=== PATIENT | female | born 1995 | race African-American/Black ===

== ENCOUNTER 2017-07-28 17:30 | Emergency (ER) | payer OTHER ==
[2017-07-28 18:14] LABS: #Lymphocytes 0.7 thou/uL (1.20-3.40); #Monocytes 1.1 thou/uL (0.11-0.59); #Neutrophils 6.7 thou/uL (1.40-6.50); %Basophils 0.4 % (0.0-1.0); %Eosinophils 0.4 % (0.0-10.0); %Lymphocytes 7.9 % (21.0-51.0); %Monocytes 12.4 % (0.0-10.0); Hematocrit 33.4 % (36.0-47.0); Mean Platelet Volume 11.3 fL (7.4-10.4); Red Blood Cell (RBC) Count 4.44 mill/uL (4.20-5.40); White Blood Cell (WBC) Count 8.4 thou/uL (4.8-10.8)
--- NOTE | 2017-07-28 18:17 | RAD ---
PORTABLE CHEST: Date: 07/28/17 PROVIDED CLINICAL HISTORY: Dyspnea. FINDINGS: Comparison with 12/16/13. Cardiomediastinal silhouette is unchanged in appearance. Left subclavian cardiac pacing device is red emonstrated in similar position. No focal consolidation, pleural fluid, or pneumothorax apparent. IMPRESSION: No evidence for an acute cardiopulmonary process. POS: [facility]
[2017-07-28 18:40] LABS: Troponin I Less than 0.010 ng/mL (< 0.028)
[2017-07-28 18:41] LABS: ALT (SGPT) 21 U/L (8-55); AST (SGOT) 30 U/L (5-34); Alkaline Phosphatase 57 U/L (40-150); Anion Gap 18 mmol/L (10-20); BUN (Urea Nitrogen) 7 mg/dL (7.0-18.7); Bilirubin, Total 0.7 mg/dL (0.2-1.2); CK (CPK) 75 U/L (29-168); Calc. Creatinine Clearance 0 mL/min (70-130); Calcium 9.2 mg/dL (7.8-10.44); Carbon Dioxide 18 mmol/L (22-29); Chloride 105 mmol/L (98-107); Estimated GFR-MDRD Greater than 90; Globulin 3.8 g/dL (2.4-3.5); Protein, Total 8.4 g/dL (6.0-8.3)
[2017-07-28] MEDS ORDERED: Acetaminophen 500 MG TAB ONE (18:43)
== END 2017-07-28 20:25 | disposition home or self-care (01) ==
LOC: ERS 17:30
DX: J11.1 Influenza due to unidentified influenza virus with other respiratory manifestations (principal); I48.91 Unspecified atrial fibrillation; I50.9 Heart failure, unspecified; I49.9 Cardiac arrhythmia, unspecified; F17.210 Nicotine dependence, cigarettes, uncomplicated
CPT/HCPCS: 71010; 80053; 82550; 82553; 83880; 84484; 85025; 93005; 96360

== ENCOUNTER 2018-02-04 10:55 | Emergency (ER) | payer OTHER ==
[2018-02-04 11:24] LABS: Bilirubin Small (Negative); Blood, Urine Trace (Negative); Glucose, Urine (Dipstick) Negative (Negative); Leukocyte Negative (Negative); Nitrite Negative (Negative); Protein, Urine (Dipstick) Trace mg/dL (Neg-Trace); Urobilinogen 0.2 mg/dL (0.2-1.0)
[2018-02-04 11:27] LABS: Clarity Hazy (Clear); Specific Gravity, Urine 1.025 (1.002-1.036)
[2018-02-04 11:29] LABS: #Eosinphils 0.1 thou/uL (0.0-0.7); #Lymphocytes 1.5 thou/uL (1.20-3.40); #Monocytes 0.6 thou/uL (0.11-0.59); #Neutrophils 3.8 thou/uL (1.40-6.50); %Basophils 0.7 % (0.0-1.0); %Eosinophils 1.2 % (0.0-10.0); %Lymphocytes 24.4 % (21.0-51.0); %Monocytes 10.3 % (0.0-10.0); %Neutrophils 63.4 % (42.0-75.0); Hemoglobin 9.5 g/dL (12.0-16.0); Mean Corpuscular HGB CONC 29.7 g/dL (32.0-36.0); Mean Corpuscular Hemoglobin 22.4 pg (27.0-31.0); Mean Corpuscular Volume 75.5 fL (78.0-98.0); Mean Platelet Volume 10.6 fL (7.4-10.4); Platelet Count 209 thou/uL (130-400); RBC Distribution Width 17.2 % (11.5-14.5); Red Blood Cell (RBC) Count 4.23 mill/uL (4.20-5.40)
[2018-02-04 11:32] LABS: Bacteria/HPF 3+ HPF (None Seen); RBC/HPF None Seen HPF (0-3); Squamous Epithelial 21-50 HPF (0-3)
[2018-02-04 11:34] LABS: Pathc Cast-AUWi Flag 4.65 (0-2.49)
[2018-02-04 11:39] LABS: BHCG - Serum Negative (NEGATIVE); Pregs Control Background? CLEAR/WHITE (CLR/WHITE); Pregs Control Bar Appear? YES (CONTROL BAR)
[2018-02-04 11:39] LABS: Hyaline Casts/LPF 4-6 HYALINE CAST LPF (0-3 Hyaline)
[2018-02-04 11:40] LABS: Crystals/HPF None Seen HPF (Negative); Other Casts/LPF None Seen LPF (0-3 Hyaline); Renal Epithelial 0-3 HPF (0-3); Transitional Epithelial 0-3 HPF (0-3)
[2018-02-04 11:52] LABS: ALT (SGPT) 15 U/L (8-55); AST (SGOT) 19 U/L (5-34); Albumin 4.2 g/dL (3.5-5.0); Alkaline Phosphatase 53 U/L (40-150); Anion Gap 10 mmol/L (10-20); BUN (Urea Nitrogen) 10 mg/dL (7.0-18.7); Bilirubin, Total 0.8 mg/dL (0.2-1.2); Calc. Creatinine Clearance 0 mL/min (70-130); Carbon Dioxide 21 mmol/L (22-29); Chloride 109 mmol/L (98-107); Estimated GFR-MDRD Greater than 90; Glucose 90 mg/dL (70-105); Potassium 3.4 mmol/L (3.5-5.1); Protein, Total 7.2 g/dL (6.0-8.3); Sodium 137 mmol/L (136-145)
[2018-02-04 12:16] LABS: Hypochromia SLIGHT = 6-15 cells (100X) (0-5/hpf); MDiff Complete? YES; Microcytosis SLIGHT = 6-15 cells (100X) (0-5/hpf); Polychromasia SLIGHT = 2-3 cells (100X) (0-2/hpf)
[2018-02-04] MEDS ORDERED: cefTRIAXone\\ROCEPHIN 250 MG VIAL ONE (12:49)
[2018-02-04] MEDS ORDERED: Lidocaine 1% PF 5 ML VIAL ONE (12:49)
[2018-02-04] MEDS ORDERED: Azithromycin 250 MG TAB ONE (12:49)
[2018-02-06 22:14] LABS: Chlamydia by PCR Not Detected (NotDetected); GC by PCR Not Detected (NotDetected)
== END 2018-02-04 13:19 | disposition home or self-care (01) ==
LOC: ERS 10:55
DX: N89.8 Other specified noninflammatory disorders of vagina (principal); R30.0 Dysuria; I48.91 Unspecified atrial fibrillation; I50.9 Heart failure, unspecified; F17.210 Nicotine dependence, cigarettes, uncomplicated
CPT/HCPCS: 36415; 80053; 81003; 81015; 84703; 85025; 87077; 87086; 87186; 87480; 87491; 87510; 87591; 87660; 96372; J0696; J2001

== ENCOUNTER 2018-05-09 19:04 | Emergency (ER) | payer OTHER ==
[2018-05-09 19:52] LABS: Bilirubin Negative (Negative); Blood, Urine Negative (Negative); Clarity CLOUDY (Clear); Glucose, Urine (Dipstick) Negative (Negative); Leukocyte Moderate (Negative); Nitrite Negative (Negative); Protein, Urine (Dipstick) Negative (Neg-Trace); Specific Gravity, Urine 1.028 (1.002-1.036)
[2018-05-09 19:55] LABS: Bacteria/HPF None Seen HPF (None Seen); Pathc Cast-AUWi Flag 1.16 (0-2.49); Pregnancy Test - Urine (BHCG) Negative (Negative); Pregu Control Background? CLEAR/WHITE (CLR/WHITE); Pregu Control Bar Appear? YES (CONTROL BAR); Specific Gravity 1.028 (1.002-1.036); Squamous Epithelial 0-3 HPF (0-3)
[2018-05-09 19:59] LABS: Hyaline Casts/LPF 0-3 HYALINE CAST LPF (0-3 Hyaline); RBC/HPF None Seen HPF (0-3)
[2018-05-11 22:10] LABS: Chlamydia by PCR Not Detected (NotDetected); GC by PCR Not Detected (NotDetected)
== END 2018-05-09 22:00 | disposition home or self-care (01) ==
LOC: ERS 19:04
DX: N39.0 Urinary tract infection, site not specified (principal); I48.91 Unspecified atrial fibrillation; I50.9 Heart failure, unspecified; Z87.891 Personal history of nicotine dependence
CPT/HCPCS: 81003; 81015; 81025; 87480; 87491; 87510; 87591; 87660; 99284

== ENCOUNTER 2018-06-22 10:37 | Emergency (ER) | payer OTHER ==
[2018-06-22 12:39] LABS: #Basophils 0.1 thou/uL (0.0-0.2); #Eosinphils 0.1 thou/uL (0.0-0.7); #Lymphocytes 1.9 thou/uL (1.20-3.40); #Monocytes 0.7 thou/uL (0.11-0.59); #Neutrophils 5.6 thou/uL (1.40-6.50); %Basophils 0.6 % (0.0-1.0); %Neutrophils 67.4 % (42.0-75.0); Hemoglobin 9.9 g/dL (12.0-16.0); Mean Corpuscular HGB CONC 29.2 g/dL (32.0-36.0); Mean Corpuscular Hemoglobin 22.9 pg (27.0-31.0); Mean Corpuscular Volume 78.4 fL (78.0-98.0); Mean Platelet Volume 10.9 fL (7.4-10.4); Platelet Count 222 thou/uL (130-400); RBC Distribution Width 17.4 % (11.5-14.5); Red Blood Cell (RBC) Count 4.34 mill/uL (4.20-5.40); White Blood Cell (WBC) Count 8.3 thou/uL (4.8-10.8)
[2018-06-22 12:43] LABS: Bilirubin Negative (Negative); Blood, Urine Negative (Negative); Clarity CLOUDY (Clear); Glucose, Urine (Dipstick) Negative (Negative); Leukocyte Moderate (Negative); Nitrite Negative (Negative); Protein, Urine (Dipstick) Trace mg/dL (Neg-Trace); Specific Gravity, Urine 1.027 (1.002-1.036)
[2018-06-22 12:57] LABS: Hypochromia SLIGHT = 6-15 cells (100X) (0-5/hpf); MDiff Complete? YES; Microcytosis SLIGHT = 6-15 cells (100X) (0-5/hpf); PLT Morphology Comment Appears Adequate; Polychromasia SLIGHT = 2-3 cells (100X) (0-2/hpf)
[2018-06-22 13:07] LABS: Bacteria/HPF 2+ HPF (None Seen)
[2018-06-22 13:11] LABS: ALT (SGPT) 14 U/L (8-55); AST (SGOT) 18 U/L (5-34); Albumin 3.7 g/dL (3.5-5.0); Alkaline Phosphatase 54 U/L (40-150); Anion Gap 11 mmol/L (10-20); BUN (Urea Nitrogen) 13 mg/dL (7.0-18.7); Bilirubin, Total 0.7 mg/dL (0.2-1.2); Calc. Creatinine Clearance 0 mL/min (70-130); Calcium 8.9 mg/dL (7.8-10.44); Carbon Dioxide 24 mmol/L (22-29); Chloride 109 mmol/L (98-107); Estimated GFR-MDRD Greater than 90; Globulin 3.4 g/dL (2.4-3.5); Glucose 90 mg/dL (70-105); Potassium 4.2 mmol/L (3.5-5.1); Protein, Total 7.1 g/dL (6.0-8.3); Sodium 140 mmol/L (136-145)
[2018-06-22] MEDS ORDERED: Azithromycin 250 MG TAB ONE (13:54)
[2018-06-22] MEDS ORDERED: Lidocaine 1% (PF) 30 ML VIAL ONE (13:54)
[2018-06-22] MEDS ORDERED: cefTRIAXone\\ROCEPHIN 250 MG VIAL ONE (13:54)
[2018-06-24 00:39] LABS: Chlamydia by PCR Not Detected (NotDetected); GC by PCR Not Detected (NotDetected)
== END 2018-06-22 14:00 | disposition home or self-care (01) ==
LOC: ERS 10:37
DX: N89.8 Other specified noninflammatory disorders of vagina (principal); N39.0 Urinary tract infection, site not specified; I48.91 Unspecified atrial fibrillation; I50.9 Heart failure, unspecified; Z87.891 Personal history of nicotine dependence
CPT/HCPCS: 36415; 80053; 81003; 81015; 85025; 87086; 87480; 87491; 87510; 87591; 87660; 96372; J0696; J2001

== ENCOUNTER 2018-09-29 14:55 | Emergency (ER) | payer OTHER ==
[2018-09-29] MEDS ORDERED: Ibuprofen 200 MG TAB ONE (15:26)
== END 2018-09-29 15:33 | disposition home or self-care (01) ==
LOC: ERS 14:55
DX: H66.92 Otitis media, unspecified, left ear (principal); I48.91 Unspecified atrial fibrillation; I50.9 Heart failure, unspecified; Z87.891 Personal history of nicotine dependence
CPT/HCPCS: 99282

== ENCOUNTER 2018-10-27 11:40 | Inpatient (IN) | payer OTHER ==
--- NOTE | 2018-10-27 12:17 | RAD ---
PORTABLE CHEST ONE VIEW: Date: 10-27-18 Time: 12:05 p.m. History: Chest pain, nausea. Comparison: 07-28-17 FINDINGS/IMPRESSION: Left sided AICD remains in place. The heart size is borderline. The lungs are well expanded with mild prominence of the pulmonary vascularity. No lobar consolidation, pneumothoraces or large effusions a re seen. POS: [facility]
[2018-10-27 12:35] LABS: ALT (SGPT) 35 U/L (8-55); AST (SGOT) 29 U/L (5-34); Albumin 3.8 g/dL (3.5-5.0); Alkaline Phosphatase 59 U/L (40-150); Anion Gap 11 mmol/L (10-20); BUN (Urea Nitrogen) 11 mg/dL (7.0-18.7); Bilirubin, Total 0.7 mg/dL (0.2-1.2); CK (CPK) 93 U/L (29-168); Calc. Creatinine Clearance 0 mL/min (70-130); Calcium 8.4 mg/dL (7.8-10.44); Carbon Dioxide 20 mmol/L (22-29); Chloride 111 mmol/L (98-107); Estimated GFR-MDRD Greater than 90; Globulin 2.6 g/dL (2.4-3.5); Glucose 105 mg/dL (70-105); Lipase 11 U/L (8-78); Potassium 3.7 mmol/L (3.5-5.1); Protein, Total 6.4 g/dL (6.0-8.3); Sodium 138 mmol/L (136-145)
[2018-10-27 12:36] LABS: #Basophils 0.1 thou/uL (0.0-0.2); #Eosinphils 0.1 thou/uL (0.0-0.7); #Monocytes 0.6 thou/uL (0.11-0.59); #Neutrophils 8.4 thou/uL (1.40-6.50); %Basophils 0.7 % (0.0-1.0); %Lymphocytes 17.5 % (21.0-51.0); %Monocytes 5.6 % (0.0-10.0); %Neutrophils 75.3 % (42.0-75.0); Hemoglobin 9.9 g/dL (12.0-16.0); Mean Corpuscular HGB CONC 28.5 g/dL (32.0-36.0); Mean Corpuscular Hemoglobin 21.8 pg (27.0-31.0); Mean Corpuscular Volume 76.7 fL (78.0-98.0); Mean Platelet Volume 10.8 fL (7.4-10.4); Platelet Count 247 thou/uL (130-400); RBC Distribution Width 17.3 % (11.5-14.5); Red Blood Cell (RBC) Count 4.56 mill/uL (4.20-5.40); White Blood Cell (WBC) Count 11.1 thou/uL (4.8-10.8)
[2018-10-27 13:00] LABS: Hypochromia SLIGHT = 6-15 cells (100X) (0-5/hpf); MDiff Complete? YES; Microcytosis SLIGHT = 6-15 cells (100X) (0-5/hpf); Platelet Morphology Comment Appears Adequate; Polychromasia SLIGHT = 2-3 cells (100X) (0-2/hpf)
[2018-10-27] MEDS ORDERED: Furosemide 40 MG/4 ML VIAL ONE (14:36)
[2018-10-27 16:34] LABS: Troponin I 0.597 ng/mL (< 0.028)
[2018-10-27 17:23] VITALS: BMI 21.2
[2018-10-27 19:15] LABS: Troponin I 2.233 ng/mL (< 0.028)
[2018-10-27] MEDS: Melatonin 3 MG TAB PO PRN (20:55)
[2018-10-27] MEDS ORDERED: Ondansetron PF 4 MG/2 ML Vial IVP PRN (22:36)
[2018-10-27] MEDS ORDERED: Acetaminophen 325 MG TAB PO PRN (22:36)
[2018-10-27] MEDS ORDERED: Ondansetron ODT 4 MG TAB PO PRN (22:36)
[2018-10-27] MEDS ORDERED: Nitroglycerin 0.4 MG TAB (25 Tab Bottle) PO PRN (23:46)
[2018-10-27] MEDS ORDERED: Enoxaparin Sodium 60 MG/0.6 ML SYRINGE SC SCH (23:59)
--- NOTE | 2018-10-28 02:50 | HP ---
PRIMARY CARE PHYSICIAN: None. CHIEF COMPLAINT: Chest pain. HISTORY OF PRESENT ILLNESS: Ms. Tapia is a pleasant 23-year-old female with past medical history of atrial fibrillation, treated with AICD in place, congestive heart failure, who had presented to [facility] with chest pain ongoing for the last week. She states that she has also noticed some increasing shortness of breath during this time as well. She states that this symptom was significantly worsened earlier this morning when she was getting up to use the restroom. She also noticed some nausea without vomiting. She had denied any fever, chills, any headache, dizziness, blurred vision, denies any abdominal pain. Her last documented echocardiogram displayed an ejection fraction of 20% to 25%. She states she used to see Dr. Dennis, cna caregiver, in the past. However, she has not seen him in over a year. She also reports that she is noncompliant with her home medications. She states that she is supposed to be taking medications such as carvedilol, lisinopril, Lasix that she has not been taking as she is supposed to. She is also follow up for her recheck of her AICD. She had denied any palpitations during this time as well. During her initial workup, it was found troponin be negative 0.021; however, serial troponins trended up to 0.597 and 2.233. BNP also elevated at 765.9. Chest x-ray displayed left-sided AICD in place with lungs well expanded, however did display mild pulmonary congestion. She was given a single dose of IV Lasix 40 mg, which had resolved her symptoms of chest pain and shortness of breath. She was admitted for further workup and Cardiology Services were then consulted. REVIEW OF SYSTEMS: All other systems reviewed and found to be negative unless mentioned in the HPI. PAST MEDICAL HISTORY: Atrial fibrillation, currently in sinus rhythm on the monitor, congestive heart failure, nonischemic cardiomyopathy with an ejection fraction of 20% to 25%. PAST SURGICAL HISTORY: Tonsillectomy, adenoidectomy, tubal ligation, defibrillator. PSYCHIATRIC HISTORY: None. SOCIAL HISTORY: Currently smokes about 3 to 5 cigarettes per day. However, denies any alcohol or illicit drug use. KNOWN ALLERGIES: None. CURRENT MEDICATIONS: None. PHYSICAL EXAMINATION: VITAL SIGNS: BP 110/67, pulse 102, respirations 17, temperature 97.3 degrees Fahrenheit, O2 saturation 99% on room air. GENERAL: The patient is awake, alert, and oriented x3, in no acute distress noted. HEENT: Pupils are round and reactive to light. Extraocular muscles intact. Moist mucous membranes noted. Oropharynx is clear without exudates or erythema. Uvula is midline. NECK: Soft and supple. No JVD. Trachea midline. CARDIOVASCULAR: Positive S1 and S2. Regular rate and rhythm. No murmurs auscultated. RESPIRATORY: Clear to auscultation bilaterally. No wheezes, rales, or rhonchi. ABDOMEN: Soft and nontender. Bowel sounds present. No rebound, no rigidity noted. MUSCULOSKELETAL: Strength 5+ bilaterally in upper and lower extremities. Moves all extremities equal. No edema noted. SKIN: Warm, dry, and intact. No lesions, rashes, or ulcerations. NEUROLOGIC: Cranial nerves II through XII grossly intact. No focal deficits noted. Speech intact and normal. Gait not assessed. PSYCHIATRIC: Good mood and affect. LABORATORY DATA: WBC 11.1, RBC 4.56, hemoglobin 9.9, hematocrit 34.9, platelets 247. Sodium 138, potassium 3.7, anion gap 11, BUN 11, creatinine 0.88, estimated GFR greater than 90, glucose 105, AST 29, ALT 35. Troponin 0.021, trended up to 0.597 and then 2.233. BNP 765.9. DIAGNOSTIC IMAGING: Portable chest x-ray revealed mild pulmonary congestion with AICD in place. No large effusions noted. ASSESSMENT AND PLAN: 1. Non ST-elevation myocardial infarction, Cardiology consulted. The patient will be placed on full dose of aspirin and Lovenox 1 mg/kg b.i.d. The patient will also be started on full-dose statin therapy and await further recommendations from Cardiology. 2. Chest pain, likely secondary to above. The patient remains asymptomatic at this time. Continue with medical management including IV Lasix daily and continue on telemetry for further monitoring. Obtain and recheck EKG. 3. Nonischemic cardiomyopathy. Recheck echocardiogram in the morning and await further recommendations from Cardiology Services. Due to patient's risk of hypotension, we will hold any beta blockers or MANSOOR inhibitors at this time, and await further recommendations from Cardiology Services. 4. Deep venous thrombosis and gastrointestinal prophylaxis. 5. Code status, full code. DISPOSITION: Pending further workup and clinical findings. Job ID: [id number]
[2018-10-28 06:54] LABS: #Basophils 0.1 thou/uL (0.0-0.2); #Eosinphils 0.2 thou/uL (0.0-0.7); #Lymphocytes 2.5 thou/uL (1.20-3.40); #Monocytes 1.2 thou/uL (0.11-0.59); %Basophils 0.5 % (0.0-1.0); %Eosinophils 1.5 % (0.0-10.0); %Lymphocytes 21.1 % (21.0-51.0); %Monocytes 9.7 % (0.0-10.0); %Neutrophils 67.2 % (42.0-75.0); Anisocytosis SLIGHT = 6-15 cells (100X) (0-5/hpf); Hypochromia SLIGHT = 6-15 cells (100X) (0-5/hpf); MDiff Complete? YES; Mean Corpuscular HGB CONC 29.2 g/dL (32.0-36.0); Mean Corpuscular Hemoglobin 22.3 pg (27.0-31.0); Mean Corpuscular Volume 76.4 fL (78.0-98.0); Mean Platelet Volume 10.9 fL (7.4-10.4); Platelet Count 247 thou/uL (130-400); RBC Distribution Width 17.6 % (11.5-14.5); Red Blood Cell (RBC) Count 4.47 mill/uL (4.20-5.40); White Blood Cell (WBC) Count 11.9 thou/uL (4.8-10.8)
[2018-10-28 07:19] LABS: Anion Gap 14 mmol/L (10-20); BUN (Urea Nitrogen) 10 mg/dL (7.0-18.7); Calc. Creatinine Clearance 87 mL/min (70-130); Carbon Dioxide 22 mmol/L (22-29); Cardiac Risk 3.8 (Less than 4.5); Chloride 105 mmol/L (98-107); Cholesterol 150 mg/dl (< 200 Desired); Estimated GFR-MDRD Greater than 90; Glucose 100 mg/dL (70-105); HDL Cholesterol 40 mg/dL (>60 Neg Risk); LDL Cholesterol, Calculated 96 mg/dL; Potassium 3.4 mmol/L (3.5-5.1); Sodium 138 mmol/L (136-145); Triglycerides 72 mg/dL (Less than 150)
[2018-10-28] MEDS: Furosemide 40 MG/4 ML VIAL SLOW IVP SCH (08:19)
[2018-10-28] MEDS ORDERED: Enoxaparin Sodium 40 MG/0.4 ML SYRINGE SC SCH (09:00)
[2018-10-28] MEDS ORDERED: Aspirin 325 mg Enteric Coated Tablet PO SCH (09:00)
[2018-10-28] MEDS ORDERED: Enoxaparin Sodium 60 MG/0.6 ML SYRINGE SC SCH (09:00)
[2018-10-28] MEDS ORDERED: Potassium Chloride 20 MEQ TAB PO SCH (10:15)
[2018-10-28] MEDS: Sacubitril 24.5 MG/Valsartan 25.5 MG TABLET PO SCH ×2 (11:00→20:27)
--- NOTE | 2018-10-28 11:38 | CON ---
DATE OF CONSULTATION: 10/28/2018 REASON FOR CONSULTATION: Congestive heart failure, cardiomyopathy. HISTORY OF PRESENT ILLNESS: Ms. Tapia is a 23-year-old woman. She came to the hospital yesterday, because she had difficulty breathing. She did not have chest pain, but she felt a full sensation in her chest. The patient was found to be in congestive heart failure on chest x-ray and was admitted for further evaluation. The patient does have a history of cardiomyopathy approximately 5 years ago. Her ejection fraction was severely depressed. Ejection fraction is 20-25 percent. The patient also had a defibrillator implantation. The patient did have a lot of noncompliance at that time with taking the medicines as prescribed and keeping followups, despite being stressed about the critical importance of these things. Unfortunately, she has not come back for followup now for about 5 years until yesterday. Unfortunately, she has not been taking any of the medicines that were prescribed. PAST HISTORY: 1. As mentioned, cardiomyopathy. 2. Previous defibrillator implantation. 3. She did have a left ventricular thrombus years ago, treated with enoxaparin. MEDICATIONS: As mentioned, she stopped taking all of her medicines. SOCIAL HISTORY: Continues to smoke 3-5 cigarettes per day. ALLERGIES: NO KNOWN ALLERGIES. PHYSICAL EXAMINATION: GENERAL: This is a pleasant, thin, 23-year-old woman. VITAL SIGNS: Her blood pressure is 103/56, followed by 106/71, pulse 90, it is regular, pulse is fast for her to rest. HEENT: Eyes; sclerae nonicteric. Mouth; mucous membranes moist. NECK: Supple. No lymphadenopathy. LUNGS: Clear. No wheezing, rales, or rhonchi. CARDIAC: She is tachycardic for rest. I do not hear a murmur, rub, or gallop. ABDOMEN: Soft, nontender. EXTREMITIES: No clubbing or cyanosis. There is no edema. Pedal pulses are present. SKIN: Warm and dry. PSYCHIATRIC: Mood and affect normal. NEUROLOGIC: Grossly normal. IMAGIN. Chest x-ray shows cardiomegaly with some pulmonary congestion. 2. Chest x-ray, borderline left ventricular enlargement and prominent pulmonary vasculature. PERTINENT LABORATORY: Her peak troponin was 2.2. BNP 765. Potassium level is 3.4. On reviewing previous medical records, she did have defibrillator implantation in the past that was done in November 2012. In addition, the ejection fraction was severely diminished in the past at 20-25 percent. EKG in the present time shows sinus rhythm. In addition, the patient also has had nonsustained ventricular tachycardia during this admission of 21 beats. The 12-lead EKG showed sinus rhythm. The quality of the EKG is not ideal, but the QT interval is borderline. The echocardiogram now shows an ejection fraction of 15-20 percent, severe mitral regurgitation, very prominent trabecula in the left ventricle. ASSESSMENT: 1. Severe cardiomyopathy with ejection fraction of 15% to 20%. 2. Previous defibrillator implantation. 3. Previous left ventricular thrombus, now very prominent trabecula. 4. Increased troponin, probably demand ischemia be very unlikely. She has coronary disease. Unfortunately the patient stopped taking all of the heart failure medicines; therefore, the prognosis is likely guarded to poor. We will start her on low-dose carvedilol in view of low blood pressure. 5. Replete potassium. 6. Entresto. 7. We will also ask Dr. South to review the echocardiogram in the past as we thought she had left ventricular thrombus. This appears to be more likely trabecula, but I will ask him to look as well. The patient will need to be in the hospital a few days to try to get her heart failure compensated. In the past, we stressed on multiple occasions, the critical importance of taking medicines and the very grim prognosis, if she does not. She will have this reinforced to her once again. Job ID: [id number]
[2018-10-28] MEDS: Carvedilol 3.125 MG TAB PO SCH (16:22)
--- NOTE | 2018-10-28 16:41 | PDOC.PN ---
- Subjective Encounter Start Date: 10/28/18 Encounter Start Time: 16:39 Subjective: Patient resting comfortably and is without any complaints. -: States her chest tightness has fully resolved. Has experienced -: occasional bilateral lower leg cramps. Edema has improved. Denies any sob. No cough or hemoptysis. Denies any fevers, chills or sweats. No abdo pain. No urinary symptoms. Feeling significantly better overall. - Objective Resuscitation Status - Order Detail: 10/27/18 22:36 Resuscitation Status Routine Co-Sign Provider: Resuscitation Status: FULL: Full Resuscitation Vital Signs & Weight: Vital Signs (12 hours) Temp Pulse Resp BP Pulse Ox 10/28/18 16:00 97.3 F L 97 15 107/66 98 10/28/18 11:40 98.5 F 97 18 111/63 98 10/28/18 08:00 97.8 F 94 16 106/71 100 Weight Weight 126 lb 1.6 oz I&O: 10/27/18 10/28/18 10/29/18 06:59 06:59 06:59 Intake Total 600 Output Total 450 Balance 150 Result Diagrams: 10/28/18 05:57 10/28/18 05:57 Phys Exam - Physical Examination Constitutional: NAD HEENT: PERRLA, sclera anicteric, oral pharynx no lesions Neck: supple, full ROM Respiratory: no wheezing, no rales, no rhonchi, clear to auscultation bilateral Cardiovascular: RRR Gastrointestinal: soft, non-tender, no distention, positive bowel sounds trace bilateral lower leg edema Neurological: normal sensation, moves all 4 limbs Psychiatric: normal affect, A&O x 3 Skin: no rash, normal turgor Dx/Plan (1) Cardiomyopathy Code(s): I42.9 - CARDIOMYOPATHY, UNSPECIFIED Status: Acute (2) Ischemic heart disease Code(s): I25.9 - CHRONIC ISCHEMIC HEART DISEASE, UNSPECIFIED Status: Acute (3) Chest pain Code(s): R07.9 - CHEST PAIN, UNSPECIFIED Status: Resolved (4) History of automatic internal cardiac defibrillator (AICD) Code(s): KYW4342 - Status: Acute - Plan cont current plan of care S/p Echo: 15 to 20% EF. Worsened cardiomyopathy due to noncompliance -: Seen by Dr. Dennis. Started on Carvedilol and Entresto. -: Monitor electrolytes. Continue as per Cardiology recommendations. * .
[2018-10-28] MEDS: Atorvastatin Calcium 40 MG TAB PO SCH (20:27)
[2018-10-28] MEDS ORDERED: Atorvastatin Calcium 40 MG TAB PO SCH (21:00)
[2018-10-28] MEDS: Melatonin 3 MG TAB PO PRN (22:43)
[2018-10-29 05:47] LABS: #Basophils 0.1 thou/uL (0.0-0.2); #Eosinphils 0.1 thou/uL (0.0-0.7); #Lymphocytes 2.2 thou/uL (1.20-3.40); #Monocytes 1.1 thou/uL (0.11-0.59); #Neutrophils 4.6 thou/uL (1.40-6.50); %Basophils 1.1 % (0.0-1.0); %Eosinophils 1.5 % (0.0-10.0); %Lymphocytes 26.8 % (21.0-51.0); %Monocytes 13.3 % (0.0-10.0); %Neutrophils 57.4 % (42.0-75.0); Hemoglobin 10.9 g/dL (12.0-16.0); Mean Corpuscular HGB CONC 28.6 g/dL (32.0-36.0); Mean Corpuscular Hemoglobin 22.2 pg (27.0-31.0); Mean Corpuscular Volume 77.4 fL (78.0-98.0); Mean Platelet Volume 10.7 fL (7.4-10.4); Platelet Count 297 thou/uL (130-400); RBC Distribution Width 17.9 % (11.5-14.5); Red Blood Cell (RBC) Count 4.91 mill/uL (4.20-5.40)
[2018-10-29 05:56] LABS: Anion Gap 17 mmol/L (10-20); BUN (Urea Nitrogen) 14 mg/dL (7.0-18.7); Calc. Creatinine Clearance 83 mL/min (70-130); Calcium 9.3 mg/dL (7.8-10.44); Carbon Dioxide 20 mmol/L (22-29); Chloride 104 mmol/L (98-107); Estimated GFR-MDRD Greater than 90; Glucose 93 mg/dL (70-105); Magnesium 1.9 mg/dL (1.6-2.6); Potassium 3.7 mmol/L (3.5-5.1); Sodium 137 mmol/L (136-145)
[2018-10-29 08:00] LABS: Hemoglobin 11.2 g/dL (12.0-16.0); Platelet Count 271 thou/uL (130-400)
[2018-10-29] MEDS: Sacubitril 24.5 MG/Valsartan 25.5 MG TABLET PO SCH ×2 (09:28→21:00)
[2018-10-29] MEDS: Enoxaparin Sodium 40 MG/0.4 ML SYRINGE SC SCH (09:29)
[2018-10-29] MEDS: Furosemide 40 MG/4 ML VIAL SLOW IVP SCH (09:33)
[2018-10-29] MEDS: Carvedilol 3.125 MG TAB PO SCH ×2 (09:33→17:48)
[2018-10-29] MEDS ORDERED: Potassium Chloride 20 MEQ TAB PO SCH (09:45)
--- NOTE | 2018-10-29 10:13 | PRG ---
DATE OF SERVICE: 10/29/2018 SUBJECTIVE: Ms. Tapia is doing better today. She is breathing normally, feels well. She had a good urine output and the weight came down yesterday from 126 to 120 pounds. OBJECTIVE: VITAL SIGNS: Her blood pressure is 94/52, pulse 90, it is regular. LUNGS: Clear. CARDIAC: Normal S1, normal S2. ASSESSMENT: 1. History of cardiomyopathy. 2. History of noncompliance. 3. Nonsustained ventricular tachycardia. 4. Previous defibrillator implantation. PLAN: 1. She is on Entresto. 2. Low-dose carvedilol. 3. Potassium is 3.7, like to keep it over 4. We will give her extra potassium today, carvedilol and Entresto. Probably home tomorrow. Job ID: [id number]
--- NOTE | 2018-10-29 11:12 | PDOC.PN ---
- Subjective Encounter Start Date: 10/29/18 Encounter Start Time: 11:11 Subjective: 23 y/o female with peripartum cardiomyopathy with EF in 20's s/p AICD. -: Asmitted with chest pain and worsening SOB and leg swelling. -: Feeling better with treatment with lovenox, ASA, and lasix. - Objective Resuscitation Status - Order Detail: 10/27/18 22:36 Resuscitation Status Routine Co-Sign Provider: Resuscitation Status: FULL: Full Resuscitation Vital Signs & Weight: Vital Signs (12 hours) Temp Pulse Resp BP Pulse Ox 10/29/18 07:58 97.6 F 90 16 94/52 L 99 10/29/18 04:06 98.6 F 86 16 91/51 L 98 Weight Weight 120 lb 4.8 oz I&O: 10/28/18 10/29/18 10/30/18 06:59 06:59 06:59 Intake Total 600 1420 Output Total 450 1100 Balance 150 320 Result Diagrams: 10/29/18 07:47 10/29/18 04:57 Phys Exam - Physical Examination HEENT: PERRLA, moist MMs Neck: no JVD, supple, full ROM Respiratory: no wheezing, no rales, no rhonchi Cardiovascular: RRR, no significant murmur Gastrointestinal: soft, non-tender, no distention, positive bowel sounds Musculoskeletal: no edema, pulses present Neurological: non-focal, moves all 4 limbs Psychiatric: normal affect, A&O x 3 Skin: no rash Dx/Plan (1) Acute on chronic combined systolic and diastolic congestive heart failure Code(s): I50.43 - ACUTE ON CHRONIC COMBINED SYSTOLIC AND DIASTOLIC HRT FAIL Status: Acute (2) Acute non-ST elevation myocardial infarction (NSTEMI) Code(s): I21.4 - NON-ST ELEVATION (NSTEMI) MYOCARDIAL INFARCTION Status: Acute - Plan Continue current trreatments -: Awaiting cardiology to determine presence of left Timothy thrombus or not -: Education and counseling about compliance provided -: Get iron chemistry. -: Possible discharge tomorrow * .
[2018-10-29 11:42] LABS: Iron 35 ug/dL (50-170); Iron Binding Capacity, Total 443 mcg/dL (265-497)
[2018-10-29] MEDS: Atorvastatin Calcium 40 MG TAB PO SCH (21:00)
[2018-10-29] MEDS ORDERED: Melatonin 3 MG TAB PO PRN (21:51)
[2018-10-30 07:21] LABS: #Basophils 0.1 thou/uL (0.0-0.2); #Eosinphils 0.2 thou/uL (0.0-0.7); #Lymphocytes 2.4 thou/uL (1.20-3.40); #Monocytes 1.2 thou/uL (0.11-0.59); #Neutrophils 4.9 thou/uL (1.40-6.50); %Basophils 1.1 % (0.0-1.0); %Eosinophils 1.9 % (0.0-10.0); %Monocytes 14.2 % (0.0-10.0); %Neutrophils 55.9 % (42.0-75.0); Hemoglobin 11.5 g/dL (12.0-16.0); Mean Corpuscular HGB CONC 29.1 g/dL (32.0-36.0); Mean Corpuscular Hemoglobin 22.3 pg (27.0-31.0); Mean Corpuscular Volume 76.7 fL (78.0-98.0); Mean Platelet Volume 10.7 fL (7.4-10.4); Platelet Count 295 thou/uL (130-400); RBC Distribution Width 18.1 % (11.5-14.5); Red Blood Cell (RBC) Count 5.16 mill/uL (4.20-5.40); White Blood Cell (WBC) Count 8.8 thou/uL (4.8-10.8)
[2018-10-30 07:30] LABS: Anion Gap 15 mmol/L (10-20); BUN (Urea Nitrogen) 18 mg/dL (7.0-18.7); Calc. Creatinine Clearance 84 mL/min (70-130); Carbon Dioxide 21 mmol/L (22-29); Chloride 104 mmol/L (98-107); Estimated GFR-MDRD Greater than 90; Glucose 96 mg/dL (70-105); Potassium 3.6 mmol/L (3.5-5.1); Sodium 136 mmol/L (136-145)
[2018-10-30] MEDS ORDERED: Potassium Chloride 20 MEQ TAB PO SCH (08:15)
[2018-10-30 08:51] LABS: Hypochromia SLIGHT = 6-15 cells (100X) (0-5/hpf); MDiff Complete? YES; Microcytosis SLIGHT = 6-15 cells (100X) (0-5/hpf); Platelet Morphology Comment Appears Adequate; Polychromasia SLIGHT = 2-3 cells (100X) (0-2/hpf)
[2018-10-30] MEDS ORDERED: Iron Sucrose Complex 500 MG in Sodium Chloride 0.9% 250 ML 250 ML IVPB SCH (09:15)
[2018-10-30] MEDS ORDERED: Iron, Sodium Ferric Gluconate 500 MG in Sodium Chloride 0.9% 250 ML 250 ML IVPB SCH (09:30)
[2018-10-30] MEDS: Carvedilol 3.125 MG TAB PO SCH ×2 (09:47→18:01)
[2018-10-30] MEDS: Enoxaparin Sodium 40 MG/0.4 ML SYRINGE SC SCH (09:48)
[2018-10-30] MEDS: Sacubitril 49 MG/Valsartan 51 MG TABLET PO SCH ×2 (09:49→18:01)
[2018-10-30] MEDS ORDERED: Iron, Sodium Ferric Gluconate 250 MG in Sodium Chloride 0.9% 250 ML 250 ML IVPB SCH (10:30)
--- NOTE | 2018-10-30 14:35 | PRG ---
DATE OF SERVICE: 10/30/2018 SUBJECTIVE: Ms. Tapia is doing well. She is tolerating the medicines very well. She is up to Entresto 49/51 twice a day as well as Coreg 3.125 mg twice a day. Also had a potassium 10 mEq a day. She is found to be iron deficient, here extremely iron deficient and she is receiving intravenous iron. She probably should be on oral iron as an outpatient if she will tolerate that. The patient's iron level is very low at 35. The ferritin is very low at 15.7. Normally, we tried to keep it over 100. ASSESSMENT: 1. Severe cardiomyopathy. 2. Iron deficiency. 3. Previous defibrillator. PLAN: 1. She will go home on Entresto 49/51 twice a day. 2. Carvedilol 3.125 mg twice a day, increase dose later as tolerated. 3. She is also on atorvastatin which she probably will need to continue that long-term as she does not have evidence of underlying coronary artery disease. Job ID: [id number]
[2018-10-30 16:26] VITALS: BP 100/57; TEMP 98.5
[2018-10-30] MEDS: Atorvastatin Calcium 40 MG TAB PO SCH (18:01)
--- NOTE | 2018-11-02 09:49 | DIS ---
DATE OF ADMISSION: 10/27/2018 DATE OF DISCHARGE: 10/30/2018 DISCHARGE DIAGNOSES: 1. Acute [id number] myocardial infarction. 2. Acute on chronic combined systolic and diastolic heart failure. 3. Peripartum cardiomyopathy. 4. Status post prior automatic implantable cardioverter defibrillator placement. 5. Severe iron deficiency anemia. 6. Questionable paroxysmal atrial fibrillation. 7. Prior history of left ventricular thrombus. CONSULTS: Cardiology. HOSPITAL COURSE: A 23-year-old female with known history of cardiomyopathy with ejection fraction of 15 to 20, status post AICD placement, admitted with acute onset of worsening shortness of breath and chest pain. The patient reportedly has not been taking her medications for about a year. On presentation, initial troponin was elevated and subsequently went up to a peak of 2.23 consistent with acute NSTEMI. The patient was started on antithrombotic therapy with Lovenox, aspirin, and statin. Cardiology consult was obtained and this was felt to be most likely demand ischemia and heart failure treatment was restarted and optimized with improvement in dyspnea and resolution of chest pain. The patient remained hemodynamically stable and was subsequently discharged to follow up with the torts law professor. Repeat echocardiogram showed EF of 15 to 20. There is a questionable history of atrial fibrillation, but the patient remained sinus rhythm throughout this hospitalization. Cardiology during this hospitalization did not make mention of this atrial fibrillation. PHYSICAL EXAMINATION: VITAL SIGNS: Temperature 98.5, pulse 88, respiratory rate 20, SpO2 of 98 on room air, blood pressure 100/57. GENERAL: Young female, in no obvious distress. Afebrile, anicteric, and acyanotic. HEENT: Normocephalic, atraumatic. Pupils are equal and reacting to light. CARDIOVASCULAR: Regular rhythm and rate with normal heart sounds one and two. RESPIRATORY: Good air entry bilaterally with no obvious crackle or rhonchi. GI: Abdomen is full, soft, nontender, nondistended with normal bowel sounds. EXTREMITIES: Grossly normal looking atraumatic with no edema or erythema. NEUROLOGIC: Conscious and alert, oriented x3 with appropriate mental status. DISCHARGE CONDITION: Improved. FOLLOWUP: The patient is to follow up with the PCP in 1 week and Cardiology in 1 to 2 weeks. DISCHARGE MEDICATIONS: 1. Lipitor 20 mg p.o. at bedtime. 2. Carvedilol 3.125 p.o. b.i.d. 3. Ferrous sulfate 325 mg p.o. t.i.d. 4. Potassium chloride 10 mEq p.o. daily. 5. Entresto 49/51 one tablet p.o. b.i.d. 6. Sennoside docusate one tablet p.o. b.i.d. This discharge took more than 36 minutes. Job ID: [id number]
== END 2018-10-30 18:02 | disposition home or self-care (01) | DRG 280 ==
LOC: ERS 11:40 → 2SW 17:00 → OBSVTOIN 17:00
PROVIDERS: ADMIT Family Medicine; ATTEND Family Medicine
DX: I21.4 Non-ST elevation (NSTEMI) myocardial infarction (principal); I50.43 Acute on chronic combined systolic (congestive) and diastolic (congestive) heart failure; I47.2 Ventricular tachycardia; I42.8 Other cardiomyopathies; I48.0 Paroxysmal atrial fibrillation; D50.9 Iron deficiency anemia, unspecified; I25.9 Chronic ischemic heart disease, unspecified; Z95.810 Presence of automatic (implantable) cardiac defibrillator; F17.210 Nicotine dependence, cigarettes, uncomplicated; Z91.14 Patient's other noncompliance with medication regimen
CPT/HCPCS: 36415; 71045; 80048; 80053; 80061; 82550; 82728; 83540; 83550; 83690; 83735; 83880; 84484; 85014; 85018; 85025; 85049; 90471; 90686; 90732; 93005; 93306; 93798; 94760; 96374; G0008; G0009; J1650; J1756; J1940; J2916; J7050

== ENCOUNTER 2018-11-11 14:43 | Emergency (ER) | payer OTHER ==
[~2018-11-11 14:43] MED LIST: ISOVUE-370 76%-LOCM 1 ML ONE
[2018-11-11 15:29] LABS: Hemoglobin 9.8 g/dL (12.0-16.0); Mean Corpuscular HGB CONC 29.4 g/dL (32.0-36.0); Mean Corpuscular Hemoglobin 23.4 pg (27.0-31.0); Mean Corpuscular Volume 79.6 fL (78.0-98.0); Mean Platelet Volume 10.6 fL (7.4-10.4); Platelet Count 267 thou/uL (130-400); RBC Distribution Width 20.1 % (11.5-14.5); Red Blood Cell (RBC) Count 4.18 mill/uL (4.20-5.40); White Blood Cell (WBC) Count 10.1 thou/uL (4.8-10.8)
[2018-11-11 15:46] LABS: #Basophils 0.1 thou/uL (0.0-0.2); #Eosinphils 0.1 thou/uL (0.0-0.7); #Monocytes 0.7 thou/uL (0.11-0.59); #Neutrophils 7.2 thou/uL (1.40-6.50); %Basophils 0.8 % (0.0-1.0); %Eosinophils 0.7 % (0.0-10.0); %Monocytes 7.3 % (0.0-10.0); %Neutrophils 71.2 % (42.0-75.0); Anisocytosis SLIGHT = 6-15 cells (100X) (0-5/hpf); Elliptocytes SLIGHT = 2-5 cells (100X) (0-1/hpf); Hypochromia SLIGHT = 6-15 cells (100X) (0-5/hpf); MDiff Complete? YES; Microcytosis SLIGHT = 6-15 cells (100X) (0-5/hpf); Platelet Morphology Comment Appears Adequate; Poikilocytosis SLIGHT = 6-15 cells (100X) (0-5/hpf); Polychromasia SLIGHT = 2-3 cells (100X) (0-2/hpf); Tear Drops SLIGHT = 2-5 cells (100X) (0-1/hpf)
[2018-11-11 15:48] LABS: Acetaminophen Less than 6.0 mcg/mL (10.0-30.0); Alcohol Less than 10 mg/dL (Less than 10); CK (CPK) 45 U/L (29-168); Salicylate Less than 8.0 mg/dL (15.0-30.0)
[2018-11-11 15:52] LABS: ALT (SGPT) 19 U/L (8-55); AST (SGOT) 17 U/L (5-34); Albumin 3.5 g/dL (3.5-5.0); Alkaline Phosphatase 55 U/L (40-150); Anion Gap 10 mmol/L (10-20); BUN (Urea Nitrogen) 9 mg/dL (7.0-18.7); Bilirubin, Total 0.6 mg/dL (0.2-1.2); Calc. Creatinine Clearance 0 mL/min (70-130); Calcium 8.7 mg/dL (7.8-10.44); Carbon Dioxide 25 mmol/L (22-29); Chloride 112 mmol/L (98-107); Estimated GFR-MDRD Greater than 90; Globulin 2.7 g/dL (2.4-3.5); Glucose 90 mg/dL (70-105); Potassium 3.9 mmol/L (3.5-5.1); Protein, Total 6.2 g/dL (6.0-8.3); Sodium 143 mmol/L (136-145)
--- NOTE | 2018-11-11 15:57 | CT ---
CT BRAIN NONCONTRAST: HISTORY: 23-year-old female status post acute head injury. FINDINGS: There is no midline shift or any other mass effect. There is no evidence of acute intracranial hemor rhage, large cortical infarct, obstructive hydrocephalus, or extraaxial fluid collection. The calvar ium is intact. There are calcifications in the tectum bilaterally, right larger than left. There is a calcification in the posterior edge of the right thalamus. There is a calcification in the posterior aspect of the third ventricle. IMPRESSION: 1. No acute intracranial findings. 2. Calcifications in unusual locations, of uncertain etiology and significance. jn [] POS: [facility]
--- NOTE | 2018-11-11 16:15 | CT ---
FExam: Chest CT with contrast HISTORY: Trauma. Pain. FINDINGS: No mediastinal mass, lymphadenopathy or hematoma. Heart size is within normal limits. No si gnificant pericardial fluid. Visualized aorta has a normal caliber. Small bilateral pleural effusions with fluid tracking along the major fissures. No masses or consolid ation. Minimal dependent atelectatic changes. No pneumothorax. Trachea and central bronchi are patent No lytic or blastic lesions in the osseous structures. No fracture. IMPRESSION: No post traumatic change.
--- NOTE | 2018-11-11 16:18 | CT ---
CT ANGIOGRAM NECK WITH CONTRAST: Date: 11/11/18 HISTORY: 23-year-old female status post hanging, suicide attempt. TECHNIQUE: IV injection of 100 mL [id number]. Arterial bolus chasing technique scan performed from nayeli to superior edge of orbits. Coronal and s agittal 3D MIP reconstructions. FINDINGS: Alignment of cervical spine is normal, with no fracture or any other significant osseous abnormality. There are bilateral pleural effusions, right larger than left. There are mild interstitial densities in bilateral lungs which may represent pulmonary interstitial edema. There is an AICD generator in t he soft tissues anterior to the left chest. The aortic arch, cervical portions of the bilateral commo n carotid arteries, bilateral internal carotid arteries, left vertebral artery, cervical and intracra nial portions of the right vertebral artery, basilar artery, carotid siphons, M1 segments of the bila teral middle cerebral arteries, A1 segment of left anterior cerebral artery, are normal. A1 segment o f right anterior cerebral artery is absent. The A2 segment of right anterior cerebral artery is suppl ied by the left ROGER via an anterior communicating artery. There is no convincing evidence of dissecti on. The origin of the right vertebral artery, and the intrathoracic portions of the bilateral common carotid arteries, brachiocephalic artery, and portions of the right subclavian artery, are obscured b y streak artifact from the AICD leads. There is no soft tissue hematoma in the neck, but there is phill ma in the posterior cervical space bilaterally and in the subcutaneous fat posterior to the dorsal fa scia. No major pathology of larynx. There are a few small low density lesions in the thyroid gland. The largest is approximately 1.3 x 0. 7 cm solid nodule in the posterior aspect of the left lobe of the thyroid gland. This was not definit victoria identified on previous CT angiograms of chest dated 06/14/12 and 11/28/12, possibly due to degrad ed images on those studies, or possibly because it may be new. IMPRESSION: 1. No abnormalities of major arteries of the neck identified. 2. No fracture. 3. Bilateral pleural effusions. 4. Mild pulmonary interstitial edema. 5. Automatic implantable cardioverter-defibrillator. 6. Left thyroid nodule. Recommend thyroid ultrasound on an elective basis. POS: [facility]
[2018-11-11] MEDS ORDERED: Ibuprofen 200 MG TAB ONE (16:54)
[2018-11-11 17:00] LABS: Bilirubin Negative (Negative); Blood, Urine Negative (Negative); Clarity CLEAR (Clear); Glucose, Urine (Dipstick) Negative (Negative); Leukocyte Small (Negative); Nitrite Negative (Negative); Protein, Urine (Dipstick) 30 mg/dL (Neg-Trace); Urobilinogen 0.2 mg/dL (0.2-1.0); pH, Urine 7.5 (5.0-9.0)
[2018-11-11 17:02] LABS: Bacteria/HPF Rare-Few HPF (None Seen); Pathc Cast-AUWi Flag 1.49 (0-2.49); RBC/HPF 0-3 HPF (0-3); Squamous Epithelial 0-3 HPF (0-3)
[2018-11-11 17:08] LABS: Hyaline Casts/LPF 0-3 HYALINE CAST LPF (0-3 Hyaline); Pregnancy Test - Urine (BHCG) Negative (Negative); Specific Gravity, Urine 1.044 (1.002-1.036)
[2018-11-11 17:09] LABS: Pregu Control Background? CLEAR/WHITE (CLR/WHITE); Pregu Control Bar Appear? YES (CONTROL BAR); Specific Gravity 1.044 (1.002-1.036)
[2018-11-11 17:10] LABS: Amphetamine Not Detected (NotDetected); Benzodiazepine Screen Not Detected (NotDetected); Cocaine Metabolite Screen Not Detected (NotDetected); Medtox Reader # READER 4; Methamphetamine Not Detected (NotDetected); Opiate Screen Not Detected (NotDetected); Phencyclidine (PCP) Not Detected (NotDetected); Tricyclic Screen Not Detected (NotDetected)
[2018-11-11 17:11] LABS: Barbiturates Screen Not Detected (NotDetected); Medtox Control Line Valid? VALID (VALID); Methadone Not Detected (NotDetected); Oxycodone Screen Not Detected (NotDetected); THC/Cannabinoid Screen Detected (NotDetected)
== END 2018-11-11 22:34 ==
LOC: ERS 14:43
DX: S10.93XA Contusion of unspecified part of neck, initial encounter (principal); E04.1 Nontoxic single thyroid nodule; I48.91 Unspecified atrial fibrillation; I50.9 Heart failure, unspecified; F32.9 Major depressive disorder, single episode, unspecified; F17.210 Nicotine dependence, cigarettes, uncomplicated; Z79.899 Other long term (current) drug therapy; X83.8XXA Intentional self-harm by other specified means, initial encounter
CPT/HCPCS: 36415; 70450; 70498; 71260; 80053; 80306; 80307; 81003; 81015; 81025; 82550; 84443; 85025; 93005; Q9966

== ENCOUNTER 2018-11-28 12:27 | Emergency (ER) | payer OTHER ==
[2018-11-28 12:53] LABS: Bilirubin Negative (Negative); Blood, Urine Small (Negative); Clarity CLOUDY (Clear); Glucose, Urine (Dipstick) Negative (Negative); Leukocyte Moderate (Negative); Nitrite Negative (Negative); Protein, Urine (Dipstick) Negative (Neg-Trace); Specific Gravity, Urine 1.025 (1.002-1.036); Urobilinogen 0.2 mg/dL (0.2-1.0)
[2018-11-28 12:59] LABS: #Basophils 0.1 thou/uL (0.0-0.2); #Eosinphils 0.1 thou/uL (0.0-0.7); #Lymphocytes 1.9 thou/uL (1.20-3.40); #Monocytes 0.6 thou/uL (0.11-0.59); #Neutrophils 4.8 thou/uL (1.40-6.50); %Eosinophils 1.1 % (0.0-10.0); %Monocytes 7.4 % (0.0-10.0); %Neutrophils 64.5 % (42.0-75.0); Hemoglobin 10.6 g/dL (12.0-16.0); Mean Corpuscular HGB CONC 30.1 g/dL (32.0-36.0); Mean Corpuscular Hemoglobin 23.8 pg (27.0-31.0); Mean Platelet Volume 10.9 fL (7.4-10.4); Platelet Count 190 thou/uL (130-400); RBC Distribution Width 19.6 % (11.5-14.5); Red Blood Cell (RBC) Count 4.46 mill/uL (4.20-5.40); White Blood Cell (WBC) Count 7.5 thou/uL (4.8-10.8)
[2018-11-28 13:00] LABS: Bacteria/HPF None Seen HPF (None Seen); Pathc Cast-AUWi Flag 2.44 (0-2.49)
[2018-11-28 13:12] LABS: Hyaline Casts/LPF 0-3 HYALINE CAST LPF (0-3 Hyaline); Trichomonas/HPF 2+ HPF (None Seen)
[2018-11-28 13:22] LABS: ALT (SGPT) 33 U/L (8-55); AST (SGOT) 23 U/L (5-34); Alkaline Phosphatase 59 U/L (40-150); Anion Gap 11 mmol/L (10-20); BUN (Urea Nitrogen) 12 mg/dL (7.0-18.7); Calc. Creatinine Clearance 0 mL/min (70-130); Calcium 9.1 mg/dL (7.8-10.44); Carbon Dioxide 20 mmol/L (22-29); Chloride 110 mmol/L (98-107); Estimated GFR-MDRD Greater than 90; Globulin 2.7 g/dL (2.4-3.5); Glucose 91 mg/dL (70-105); Potassium 3.9 mmol/L (3.5-5.1); Protein, Total 6.7 g/dL (6.0-8.3); Sodium 137 mmol/L (136-145)
== END 2018-11-28 14:58 | disposition home or self-care (01) ==
LOC: ERS 12:27
DX: A59.9 Trichomoniasis, unspecified (principal); N39.0 Urinary tract infection, site not specified; R19.7 Diarrhea, unspecified; I48.91 Unspecified atrial fibrillation; I50.9 Heart failure, unspecified; F32.9 Major depressive disorder, single episode, unspecified; F17.210 Nicotine dependence, cigarettes, uncomplicated
CPT/HCPCS: 36415; 80053; 81003; 81015; 85025; 96360

== ENCOUNTER 2018-12-17 21:16 | Emergency (ER) | payer OTHER, SELFPAY ==
[2018-12-17 21:42] LABS: Bilirubin Negative (Negative); Blood, Urine Large (Negative); Clarity CLOUDY (Clear); Glucose, Urine (Dipstick) Negative (Negative); Leukocyte Moderate (Negative); Nitrite Negative (Negative); Protein, Urine (Dipstick) 100 mg/dL (Neg-Trace); Specific Gravity, Urine 1.028 (1.002-1.036)
[2018-12-17 21:44] LABS: Bacteria/HPF None Seen HPF (None Seen); Pathc Cast-AUWi Flag 1.22 (0-2.49)
[2018-12-17] MEDS ORDERED: diphenhydrAMINE 50 MG/ML VIAL ONE (21:48)
[2018-12-17] MEDS ORDERED: Metoclopramide HCl 10 MG/2 ML VIAL ONE (21:48)
[2018-12-17 21:51] LABS: WBC/HPF 21-50 HPF (0-3); Yeast-All Forms None Seen HPF (None Seen)
[2018-12-17 21:52] LABS: Crystals/HPF None Seen HPF (Negative); Hyaline Casts/LPF 0-3 HYALINE CAST LPF (0-3 Hyaline)
[2018-12-17 22:12] LABS: ALT (SGPT) 95 U/L (8-55); AST (SGOT) 57 U/L (5-34); Albumin 3.5 g/dL (3.5-5.0); Alkaline Phosphatase 60 U/L (40-150); Anion Gap 11 mmol/L (10-20); BUN (Urea Nitrogen) 13 mg/dL (7.0-18.7); Bilirubin, Total 0.6 mg/dL (0.2-1.2); Calc. Creatinine Clearance 0 mL/min (70-130); Calcium 8.3 mg/dL (7.8-10.44); Carbon Dioxide 20 mmol/L (22-29); Chloride 110 mmol/L (98-107); Estimated GFR-MDRD Greater than 90; Globulin 2.4 g/dL (2.4-3.5); Glucose 100 mg/dL (70-105); Lipase 10 U/L (8-78); Potassium 4.2 mmol/L (3.5-5.1); Protein, Total 5.9 g/dL (6.0-8.3); Sodium 137 mmol/L (136-145)
[2018-12-17 22:17] LABS: #Basophils 0.1 thou/uL (0.0-0.2); #Eosinphils 0.1 thou/uL (0.0-0.7); #Lymphocytes 2.8 thou/uL (1.20-3.40); #Monocytes 0.6 thou/uL (0.11-0.59); #Neutrophils 6.2 thou/uL (1.40-6.50); %Basophils 0.7 % (0.0-1.0); %Lymphocytes 28.7 % (21.0-51.0); %Neutrophils 63.6 % (42.0-75.0); Anisocytosis SLIGHT = 6-15 cells (100X) (0-5/hpf); Hemoglobin 10.1 g/dL (12.0-16.0); MDiff Complete? YES; Mean Corpuscular HGB CONC 29.9 g/dL (32.0-36.0); Mean Corpuscular Hemoglobin 24.1 pg (27.0-31.0); Mean Corpuscular Volume 80.7 fL (78.0-98.0); Mean Platelet Volume 9.7 fL (7.4-10.4); Platelet Count 277 thou/uL (130-400); Platelet Morphology Comment Appears Adequate; RBC Distribution Width 18.5 % (11.5-14.5); White Blood Cell (WBC) Count 9.7 thou/uL (4.8-10.8)
--- NOTE | 2018-12-17 22:30 | ULT ---
US Gallbladder RUQ History: [Epigastric pain] Comparison: None. Findings: Real-time grayscale and color evaluation of the right upper quadrant of the abdomen was per formed. Visualized portion of the pancreas unremarkable. Moderate right pleural effusion. The IVC is dilated. Portal vein has abnormal phasicity. Hepatic veins are distended. Right kidney measures 10.2 x 3 x 4.5 cm without mass, hydronephrosis, or abnormal calcifications. Cir cumferential wall thickening of the gallbladder without significant distention. No cholelithiasis. Common bile duct measures 2 mm. Impression: Moderate right pleural effusion with congestive changes in the liver with dilated IVC, he patic veins, and was felt to be congestive changes in the gallbladder wall. No cholelithiasis. Cholecystitis is not felt likely given their absence of stones and the wall thickening is circumferen tial without gallbladder distention.
[2018-12-17 22:46] LABS: BHCG - Serum Negative (NEGATIVE); Pregs Control Background? CLEAR/WHITE (CLR/WHITE); Pregs Control Bar Appear? YES (CONTROL BAR)
[2018-12-17] MEDS ORDERED: Ketorolac Tromethamine 30 MG/ML VIAL ONE (22:46)
[2018-12-17] MEDS ORDERED: Pantoprazole 40 MG VIAL ONE (22:46)
[2018-12-17] MEDS ORDERED: Morphine 4 MG/ML VIAL ONE (22:46)
[2018-12-17] MEDS ORDERED: Ondansetron PF 4 MG/2 ML Vial ONE (22:46)
[2018-12-17] MEDS ORDERED: Mag-Al 1200 mg/1200 mg/30 ML UDCUP ONE (22:51)
[2018-12-17] MEDS ORDERED: Lidocaine Viscous Sol 2% 15 ml UD Cup ONE (22:51)
== END 2018-12-17 23:56 | disposition home or self-care (01) ==
LOC: ERS 21:16
DX: R11.2 Nausea with vomiting, unspecified (principal); R10.13 Epigastric pain; N39.0 Urinary tract infection, site not specified; Z20.2 Contact with and (suspected) exposure to infections with a predominantly sexual mode of transmission; F32.9 Major depressive disorder, single episode, unspecified; F17.210 Nicotine dependence, cigarettes, uncomplicated; I48.91 Unspecified atrial fibrillation; Z79.891 Long term (current) use of opiate analgesic; Z79.899 Other long term (current) drug therapy
CPT/HCPCS: 76705; 80053; 81003; 81015; 83690; 84703; 85025; 93005; 96365; 96366; 96375; C9113; J1200; J1885; J2270; J2405; J2765

== ENCOUNTER 2018-12-20 00:26 | Observation (INO) | payer SELFPAY ==
[2018-12-20 02:07] LABS: ALT (SGPT) 272 U/L (8-55); AST (SGOT) 169 U/L (5-34); Albumin 3.5 g/dL (3.5-5.0); Alkaline Phosphatase 69 U/L (40-150); Anion Gap 13 mmol/L (10-20); BUN (Urea Nitrogen) 17 mg/dL (7.0-18.7); Bilirubin, Total 0.5 mg/dL (0.2-1.2); Calc. Creatinine Clearance 0 mL/min (70-130); Calcium 8.6 mg/dL (7.8-10.44); Carbon Dioxide 19 mmol/L (22-29); Chloride 110 mmol/L (98-107); Estimated GFR-MDRD 73; Globulin 2.5 g/dL (2.4-3.5); Glucose 98 mg/dL (70-105); Lipase 11 U/L (8-78); Potassium 4.3 mmol/L (3.5-5.1); Sodium 138 mmol/L (136-145)
[2018-12-20 02:09] LABS: #Basophils 0.1 thou/uL (0.0-0.2); #Eosinphils 0.1 thou/uL (0.0-0.7); #Monocytes 0.8 thou/uL (0.11-0.59); #Neutrophils 6.1 thou/uL (1.40-6.50); %Basophils 0.5 % (0.0-1.0); %Eosinophils 1.1 % (0.0-10.0); %Lymphocytes 29.6 % (21.0-51.0); %Neutrophils 60.8 % (42.0-75.0); Anisocytosis SLIGHT = 6-15 cells (100X) (0-5/hpf); Hemoglobin 10.4 g/dL (12.0-16.0); MDiff Complete? YES; Mean Corpuscular HGB CONC 30.4 g/dL (32.0-36.0); Mean Corpuscular Hemoglobin 24.5 pg (27.0-31.0); Mean Corpuscular Volume 80.5 fL (78.0-98.0); Mean Platelet Volume 9.5 fL (7.4-10.4); Ovalocytes SLIGHT = 2-5 cells (100X) (0-1/hpf); Platelet Count 300 thou/uL (130-400); RBC Distribution Width 18.6 % (11.5-14.5); Red Blood Cell (RBC) Count 4.26 mill/uL (4.20-5.40); White Blood Cell (WBC) Count 10.1 thou/uL (4.8-10.8)
[2018-12-20] MEDS ORDERED: Pantoprazole 40 MG VIAL ONE (03:41)
[2018-12-20] MEDS ORDERED: Ondansetron PF 4 MG/2 ML Vial ONE (03:41)
[2018-12-20] MEDS ORDERED: Ketorolac Tromethamine 30 MG/ML VIAL ONE (03:41)
[2018-12-20 03:49] LABS: Bilirubin Negative (Negative); Blood, Urine Small (Negative); Clarity CLEAR (Clear); Glucose, Urine (Dipstick) Negative (Negative); Leukocyte Moderate (Negative); Nitrite Negative (Negative); Protein, Urine (Dipstick) 100 mg/dL (Neg-Trace); Specific Gravity, Urine 1.028 (1.002-1.036); pH, Urine 5.5 (5.0-9.0)
[2018-12-20 03:50] LABS: Bacteria/HPF None Seen HPF (None Seen); Pathc Cast-AUWi Flag 2.04 (0-2.49); Squamous Epithelial 0-3 HPF (0-3)
[2018-12-20 04:12] LABS: Hyaline Casts/LPF NONE SEEN LPF (0-3 Hyaline)
[2018-12-20] MEDS ORDERED: Morphine 4 MG/ML VIAL ONE ×2 (04:40→05:48)
[2018-12-20 04:52] LABS: Trichomonas/HPF Rare HPF (None Seen)
[2018-12-20] MEDS ORDERED: cefTRIAXone\\ROCEPHIN 1 GM VIAL ONE (06:22)
[2018-12-20] MEDS ORDERED: Furosemide 40 MG/4 ML VIAL ONE (06:22)
[2018-12-20] MEDS ORDERED: Acetaminophen 325 MG TAB PO PRN (07:36)
[2018-12-20] MEDS ORDERED: Zolpidem Tartrate 5 MG TAB PO PRN (07:36)
--- NOTE | 2018-12-20 07:51 | CT ---
CT ABDOMEN AND PELVIS WITH IV CONTRAST: Date: 12/20/18 INDICATION: History of abdominal pain and nausea for 3 days. COMPARISON: CT chest dated 11/11/18. FINDINGS: There are worsening bilateral pleural effusions, moderate right, and small to moderate left in size. There is bibasilar atelectasis. There is retained ventriculoperitoneal catheter within the left posterolateral chest wall. There is a multilead AICD involving the heart. There is nonspecific mild periportal edema. There is mild ascites seen within the abdomen and pelvis. The pancreas, adrenal glands, and spleen appear within normal limits. The kidneys are normal appearin g. No pathologically enlarged lymph nodes are evident. There is a mild amount of retained stool within the colon. There is a normal appendix in the right lo wer quadrant of the abdomen. The visualized aspects of the uterus, bladder, rectum, and perirectal so ft tissues are unremarkable appearing. No acute osseous abnormality is evident. IMPRESSION: Nonspecific worsening pleural effusions, ascites, and periportal edema. POS: [facility]
--- NOTE | 2018-12-20 08:18 | HP ---
PRIMARY CARE PROVIDER: None. She sees a intensive care medicine specialist, Dr. Dennis. HISTORY OF PRESENT ILLNESS: She presents with 4 days of abdominal pain, epigastric, feels like she has been punched. She has had nausea and vomiting all day for 3 days. No diarrhea or constipation. No melena. PAST MEDICAL HISTORY: Pertinent for paroxysmal atrial fibrillation, cardiomyopathy with an EF of 20% to 25%, post AICD placement. PAST SURGICAL HISTORY: Tonsillectomy, adenoidectomy, tubal ligation. CURRENT MEDICATIONS: 1. Entresto 49/51 one tablet twice a day. 2. Potassium chloride 10 mEq a day. 3. Coreg 3.125 mg twice a day. 4. Lipitor 20 mg a day. 5. Ferrous sulfate 325 mg a day. ALLERGIES: NO KNOWN DRUG ALLERGIES. SOCIAL HISTORY: Smokes 3 to 5 cigarettes a day. Full code status. No next of kin given. No alcohol or illicit drug use. FAMILY HISTORY: No early heart failure, atrial fibrillation. REVIEW OF SYSTEMS: GENERAL: No headaches, dizziness, fainting. EYES: No double vision, blurred vision, flashing lights. EAR NOSE AND THROAT: No ear pain or drainage. No nasal bleeding. No trouble swallowing or oral pain. CARDIAC: No orthopnea or paroxysmal nocturnal dyspnea, or pressured chest pain. RESPIRATIONS: Recent dry cough. No wheezing or asthma. GASTROINTESTINAL: See present illness. GENITOURINARY: She has some burning on urination, has been told she has a UTI. No blood in her urine. MUSCULOSKELETAL: No pain or swelling in arms or legs. NEUROLOGICAL: No strokes, seizures, focal weakness. PSYCHIATRIC: No anxiety, depression. SKIN: No bruising, bleeding or rash. HEME AND LYMPH: No tender or swollen lymph nodes in axilla, inguinal, cervical area. PHYSICAL EXAMINATION: GENERAL: She is an alert, cooperative female, in no acute distress. Oriented x3. VITAL SIGNS: Blood pressure 103/86, pulse 97, respirations 18, temperature 97.7. HEAD, EYES, EARS, NOSE, AND THROAT: Reveals pupils are equal, round, reactive to light. Extraocular movements are intact. Sclerae are white. Tympanic membranes clear. Nose clear. Oral mucous membranes are wet. NECK: Supple without jugular venous distention, adenopathy or thyromegaly. CHEST: Clear to auscultation and percussion. HEART: Had a regular rate and rhythm. S2 was accentuated. She has a 3/6 honking left-sided systolic murmur. ABDOMEN: Soft. Bowel sounds are normal. There is no hepatosplenomegaly. She had some very minimal tenderness in the right upper quadrant. No bruits. No palpable mass. EXTREMITIES: Reveal no cyanosis, clubbing, or edema. SKIN: No bruising, bleeding or rash. HEME AND LYMPH: No tender or swollen lymph nodes axilla, inguinal, or cervical area. PULSES: Carotid, radial femoral, dorsalis pedis pulses are intact. NEUROLOGIC: Cranial nerves 2 through 12 are intact. Deep tendon reflexes symmetric. IMAGING: EKG not available. We will order. CT scan of the abdomen and pelvis is pending. I am unable to get into the computer to listen to the current interpretation. Abdominal ultrasound was done, 12/17/2018 reveals passive congestion of the liver with no cholelithiasis. LABORATORY DATA: Comprehensive metabolic profile shows AST of 169, ALT of 272, bilirubin of 0.5, chloride 110, CO2 of 19, otherwise normal. Lactic acid 1.4. Lipase 11. Urine too many to count white cells. Hematology; anemia of 10.4 with mild microcytosis. White count 10.1, platelet count 200,000. ADMITTING DIAGNOSES: 1. Epigastric pain of uncertain etiology, elevated liver enzymes and some congestion. A HIDA scan may be required. We will await for the official interpretation of the CT abdomen and pelvis. 2. Nausea and vomiting x3 days. The patient shows no physical evidence of dehydration. No electrolyte imbalance. No laboratory evidence of dehydration. I am somewhat dubious of her history. 3. Cardiomyopathy. 4. Paroxysmal atrial fibrillation. 5. Dyslipidemia. PLAN: 1. Await CT of the abdomen and pelvis. 2. Clear liquids. 3. Avoid narcotics. 4. [place] home medicines with the exception of the ferrous sulfate. Job ID: [id number]
[2018-12-20] MEDS: Famotidine/PF 20 mg/2ml Vial SLOW IVP SCH ×2 (09:09→20:01)
[2018-12-20 09:26] VITALS: BMI 23.7
[2018-12-20] MEDS ORDERED: Furosemide 40 MG/4 ML VIAL SLOW IVP SCH (09:30)
[2018-12-20] MEDS ORDERED: Ketorolac Tromethamine 30 MG/ML VIAL IVP PRN (09:34)
[2018-12-20] MEDS ORDERED: Morphine 4 MG/ML VIAL SLOW IVP SCH (10:00)
[2018-12-20] MEDS ORDERED: Ondansetron ODT 4 MG TAB PO PRN (10:15)
[2018-12-20] MEDS ORDERED: Ondansetron PF 4 MG/2 ML Vial IVP PRN (10:15)
[2018-12-20] MEDS ORDERED: Ondansetron ODT 4 MG TAB SL PRN (10:15)
[2018-12-20] MEDS: Sacubitril 49 MG/Valsartan 51 MG TABLET PO SCH ×2 (10:17→20:01)
[2018-12-20] MEDS: Carvedilol 3.125 MG TAB PO SCH ×2 (10:18→17:13)
[2018-12-20] MEDS: Potassium Chloride 10 MEQ TAB PO SCH (10:18)
[2018-12-20] MEDS: Senokot S 8.6-50 MG TAB PO SCH ×2 (10:19→20:05)
--- NOTE | 2018-12-20 11:57 | RAD ---
EXAM: Chest Two Views 12/20/2018 11:54 AM HISTORY: CHF COMPARISON: October 27, 2018 FINDINGS: Heart: There is moderate cardiomegaly Pulmonary vessels: There is moderate fluid or vascular congestion Costophrenic angles: There are small bilateral pleural effusions Lungs: There is mild interstitial edema Pneumothorax: None. Osseous structures:Intact. Additional findings: There is a dual lead pacemaker overlying the left chest wall. There is a retai marty pacemaker lead involving the left chest wall. IMPRESSION: Mild CHF
[2018-12-20] MEDS ORDERED: Ketorolac Tromethamine 30 MG/ML VIAL IVP SCH (12:00)
[2018-12-20] MEDS ORDERED: Iopamidol 370 76% 100 ML VIAL ONE (12:02)
--- NOTE | 2018-12-20 14:35 | PDOC.EVN ---
Event Note - Event Note Event Note: mild PVC and small pleural effusions. CT abd- dilted GB without stones. auspect congestive hepatomaly .. will start lasix, obtain HIDA scan
[2018-12-20] MEDS ORDERED: Atorvastatin Calcium 20 MG TAB PO SCH (21:00)
[2018-12-21 07:26] LABS: Anion Gap 8 mmol/L (10-20); BUN (Urea Nitrogen) 12 mg/dL (7.0-18.7); Calc. Creatinine Clearance 86 mL/min (70-130); Calcium 8.2 mg/dL (7.8-10.44); Carbon Dioxide 25 mmol/L (22-29); Chloride 107 mmol/L (98-107); Estimated GFR-MDRD 86; Glucose 93 mg/dL (70-105); Sodium 136 mmol/L (136-145)
[2018-12-21 07:36] LABS: #Basophils 0.1 thou/uL (0.0-0.2); #Eosinphils 0.1 thou/uL (0.0-0.7); #Lymphocytes 2.3 thou/uL (1.20-3.40); #Monocytes 0.9 thou/uL (0.11-0.59); #Neutrophils 5.9 thou/uL (1.40-6.50); %Basophils 0.5 % (0.0-1.0); %Eosinophils 1.3 % (0.0-10.0); %Lymphocytes 24.9 % (21.0-51.0); %Neutrophils 63.2 % (42.0-75.0); Hemoglobin 10.1 g/dL (12.0-16.0); Mean Corpuscular HGB CONC 30.7 g/dL (32.0-36.0); Mean Corpuscular Hemoglobin 24.5 pg (27.0-31.0); Mean Corpuscular Volume 79.7 fL (78.0-98.0); Mean Platelet Volume 9.9 fL (7.4-10.4); Platelet Count 277 thou/uL (130-400); RBC Distribution Width 17.9 % (11.5-14.5); Red Blood Cell (RBC) Count 4.14 mill/uL (4.20-5.40); White Blood Cell (WBC) Count 9.4 thou/uL (4.8-10.8)
[2018-12-21] MEDS: Carvedilol 3.125 MG TAB PO SCH ×2 (12:05→17:26)
[2018-12-21] MEDS: Potassium Chloride 10 MEQ TAB PO SCH (12:05)
[2018-12-21] MEDS: Sacubitril 49 MG/Valsartan 51 MG TABLET PO SCH (12:05)
[2018-12-21] MEDS: Famotidine/PF 20 mg/2ml Vial SLOW IVP SCH (12:06)
[2018-12-21] MEDS: Senokot S 8.6-50 MG TAB PO SCH (12:10)
--- NOTE | 2018-12-21 12:45 | NM ---
HEPATOBILIARY SCAN: HISTORY:Abnormal liver function tests. Gallbladder dilatation RADIOPHARMACEUTICAL: 5.5 mCi technetium 99m Mebrofenin injected intravenously FINDINGS: There is normal tracer extraction by the liver with normal excretion into the biliary tracts and smal l bowel loops and normal filling of the gallbladder. The calculated gallbladder ejection fraction following an oral fatty meal measures 44%. IMPRESSION: 1. 44% gallbladder ejection fraction 2. No scintigraphic evidence of cholecystitis.
[2018-12-21 16:53] VITALS: BP 90/63; TEMP 97.9
[2018-12-21] MEDS ORDERED: Furosemide 20 MG TAB PO SCH (17:15)
--- NOTE | 2018-12-22 13:48 | DIS ---
DATE OF ADMISSION: 12/20/2018 DATE OF DISCHARGE: 12/21/2018 DISCHARGE DIAGNOSES: 1. Exacerbation of congestive heart failure. 2. cardiomyopathy with an ejection fraction of 20% to 25%, post automatic implantable cardioverter-defibrillator placement. 3. Noncompliance with cardiac medications including Entresto as well as Cardiology followup. 4. Paroxysmal atrial fibrillation. 5. Dyslipidemia. HOSPITAL COURSE: Ms. Tapia is a 23-year-old woman, frequently attending in the past with exacerbation of CHF/cardiomyopathy, who is known to be noncompliant with medications and frequently lost to follow up with Cardiology, who presented complaining of abdominal pain as well as nausea and vomiting. Her symptoms settled once admitted. She underwent imaging that demonstrated liver congestion with no cholelithiasis. She also underwent a CT of the abdomen which showed nonspecific worsening pleural effusion as well as ascites and periportal edema. On chest x-ray, she was noted to have mild CHF. She was started on Lasix for congestive hepatomegaly. The patient is known to Dr. Dennis, whom she has not seen for quite sometime. She underwent a hepatobiliary scan which showed a 44% gallbladder ejection fraction and no evidence of cholecystitis. It was determined that the pleural effusion and ascites were associated with her cardiomyopathy rather than underlying hepatobiliary problem. The patient had notable improvement with Lasix. On day of discharge, she is without any complaints. Tolerating oral intake. Without any fever, chills, or sweats. She was seen with Dr. Torres who advised discharge with recommendations to resume Entresto and continue Lasix as an outpatient until seen by Dr. Dennis. The patient was initially very reluctant and tearful stating that she was not interested in taking pills. She seems to have reluctance of pills, but after speaking with her mother and Dr. Torres, she expressed understanding that the medications is what would potentially help to keep her underlying heart problems from worsening and causing symptoms such as what she presented with. The patient expressed understanding and desired to resume medications and follow up with Dr. Dennis as an outpatient. I reviewed the patient's wishes to the cardiac rehab nurse. An appointment has been scheduled for December 28, 2018. The patient also will follow up in the Heart Failure Clinic. REVIEW OF SYSTEMS: The patient feels well at present and is without any complaints. All review of systems are negative. PHYSICAL EXAMINATION: GENERAL: The patient appears thin, well developed, and in no acute distress. VITAL SIGNS: Temperature 97.9, pulse 101, respirations 18, blood pressure 90/63, O2 saturation 99% on room air. HEENT: Normocephalic and atraumatic. Pupils are equal, round, and reactive to light. No scleral icterus. Oropharynx is clear. NECK: Supple. LUNGS: Clear to auscultation Bilaterally. CARDIAC: Regular rate and rhythm. ABDOMEN: Soft, nontender, nondistended. Normoactive bowel sounds present. EXTREMITIES: No lower leg edema. NEUROLOGIC: Alert and oriented x3. SKIN: Without rash or jaundice. INVESTIGATIONS: As mentioned above in HPI. LABORATORY DATA: White blood count 9.4, hemoglobin 10.1, hematocrit 33, platelets 277. Sodium 136, potassium 4.0, chloride 107, carbon dioxide 25, anion gap 8, BUN 12, creatinine 0.96, GFR 86, glucose 93, calcium 8.2, lipase 11. CONDITION: Stable at discharge. ACTIVITY: As tolerated/cardiopulmonary limits. DIET: Heart healthy with fluid restrictions as previously recommended. DISCHARGE MEDICATIONS: The patient was given a prescription for Entresto as well as Lasix. Advised to resume all other home medications. FOLLOWUP: 1. The patient will follow up with her primary care physician within 1 week. Followup established with Dr. Dennis on December 28, 2018. 2. Will follow up with the Heart Failure Clinic. DISPOSITION: The patient medically cleared for discharge home on 12/21/2018. Her case was discussed with Dr. Torres, who saw and discussed above plan with the patient and agrees with plan as outlined above. Job ID: [id number]
== END 2018-12-21 18:56 | disposition home or self-care (01) ==
LOC: ERS 00:26 → T4-B 06:25
PROVIDERS: ADMIT Hospitalist; ATTEND Hospitalist
DX: I50.9 Heart failure, unspecified (principal); R18.8 Other ascites; O90.3 Peripartum cardiomyopathy; R10.13 Epigastric pain; R11.2 Nausea with vomiting, unspecified; I48.0 Paroxysmal atrial fibrillation; F17.210 Nicotine dependence, cigarettes, uncomplicated; Z95.810 Presence of automatic (implantable) cardiac defibrillator; Z79.899 Other long term (current) drug therapy; Z91.14 Patient's other noncompliance with medication regimen
CPT/HCPCS: 36415; 71046; 74177; 78227; 80048; 80053; 81003; 81015; 83605; 83690; 85025; 96361; 96374; 96375; 96376; A9537; C9113; G0378; J0696; J1885; J1940; J2270; J2405; Q0162; Q9967; S0028

== ENCOUNTER 2018-12-25 20:54 | Inpatient (IN) | payer SELFPAY ==
--- NOTE | 2018-12-25 21:23 | RAD ---
PORTABLE CHEST: 12/25/18 INDICATIONS: Shortness of breath. COMPARISON: 12/20/18. FINDINGS: Mild cardiomegaly with AICD leads again noted. Lungs are clear. No infiltrate or vascular congestion seen. Small bilateral effusions remain. IMPRESSION: No acute lung process. There may be small bilateral effusions which were noted previously. POS: [facility]
[2018-12-25 21:36] LABS: Bilirubin Negative (Negative); Blood, Urine Trace (Negative); Clarity CLEAR (Clear); Glucose, Urine (Dipstick) Negative (Negative); Leukocyte Moderate (Negative); Nitrite Negative (Negative); Protein, Urine (Dipstick) 30 mg/dL (Neg-Trace)
[2018-12-25 21:38] LABS: Bacteria/HPF None Seen HPF (None Seen); Pathc Cast-AUWi Flag 0.27 (0-2.49)
[2018-12-25 21:41] LABS: #Basophils 0.1 thou/uL (0.0-0.2); #Eosinphils 0.1 thou/uL (0.0-0.7); #Monocytes 0.9 thou/uL (0.11-0.59); #Neutrophils 7.1 thou/uL (1.40-6.50); %Basophils 0.9 % (0.0-1.0); %Eosinophils 1.2 % (0.0-10.0); %Lymphocytes 27.1 % (21.0-51.0); %Monocytes 7.6 % (0.0-10.0); %Neutrophils 63.2 % (42.0-75.0); Hemoglobin 10.4 g/dL (12.0-16.0); Mean Corpuscular HGB CONC 29.4 g/dL (32.0-36.0); Mean Corpuscular Hemoglobin 23.7 pg (27.0-31.0); Mean Corpuscular Volume 80.6 fL (78.0-98.0); Mean Platelet Volume 9.4 fL (7.4-10.4); Platelet Count 332 thou/uL (130-400); RBC Distribution Width 17.9 % (11.5-14.5); Red Blood Cell (RBC) Count 4.38 mill/uL (4.20-5.40); White Blood Cell (WBC) Count 11.2 thou/uL (4.8-10.8)
[2018-12-25 21:48] LABS: BHCG - Serum Negative (NEGATIVE); Pregs Control Background? CLEAR/WHITE (CLR/WHITE); Pregs Control Bar Appear? YES (CONTROL BAR)
[2018-12-25 21:54] LABS: Hyaline Casts/LPF 0-3 HYALINE CAST LPF (0-3 Hyaline); Renal Epithelial None Seen HPF (0-3); Squamous Epithelial 0-3 HPF (0-3); Transitional Epithelial NONE SEEN HPF (0-3); Trichomonas/HPF 1+ HPF (None Seen)
[2018-12-25 21:59] LABS: ALT (SGPT) 124 U/L (8-55); AST (SGOT) 50 U/L (5-34); Albumin 3.7 g/dL (3.5-5.0); Alkaline Phosphatase 74 U/L (40-150); Anion Gap 13 mmol/L (10-20); BUN (Urea Nitrogen) 16 mg/dL (7.0-18.7); Bilirubin, Total 0.9 mg/dL (0.2-1.2); CK (CPK) 59 U/L (29-168); Calc. Creatinine Clearance 0 mL/min (70-130); Carbon Dioxide 21 mmol/L (22-29); Chloride 108 mmol/L (98-107); Estimated GFR-MDRD 78; Globulin 2.7 g/dL (2.4-3.5); Glucose 88 mg/dL (70-105); Potassium 4.1 mmol/L (3.5-5.1); Protein, Total 6.4 g/dL (6.0-8.3); Sodium 138 mmol/L (136-145)
[2018-12-25] MEDS ORDERED: Ondansetron PF 4 MG/2 ML Vial ONE (22:18)
[2018-12-25] MEDS ORDERED: Furosemide 40 MG/4 ML VIAL ONE (22:18)
[2018-12-25] MEDS ORDERED: Morphine 4 MG/ML VIAL ONE (22:54)
[2018-12-26 00:20] VITALS: BMI 22.4
[2018-12-26 01:16] LABS: Troponin I Less than 0.010 ng/mL (< 0.028)
[2018-12-26] MEDS ORDERED: Ondansetron PF 4 MG/2 ML Vial IVP PRN (02:12)
[2018-12-26] MEDS ORDERED: Ondansetron ODT 4 MG TAB SL PRN (02:12)
[2018-12-26 05:04] LABS: Troponin I Less than 0.010 ng/mL (< 0.028)
[2018-12-26] MEDS: Melatonin 3 MG TAB PO PRN (09:15)
[2018-12-26] MEDS ORDERED: Furosemide 20 MG/2 ML VIAL SLOW IVP SCH (09:45)
[2018-12-26] MEDS ORDERED: Bisacodyl 5 MG TAB PO PRN (09:45)
[2018-12-26] MEDS ORDERED: Acetaminophen 325 MG TAB PO PRN (09:45)
--- NOTE | 2018-12-26 10:35 | EKG ---
Test Reason : Blood Pressure : / mmHG Vent. Rate : 110 BPM Atrial Rate : 110 BPM P-R Int : 138 ms QRS Dur : 066 ms QT Int : 340 ms P-R-T Axes : -21 112 008 degrees QTc Int : 460 ms Sinus tachycardia Low voltage QRS Lateral infarct , age undetermined Abnormal ECG Confirmed by ALFRED ADAM ([id number]), fan mail editor ALESHA MENARD ([id number]) on 12/26/2018 10:34:56 AM Referred By: Confirmed By:ALFRED ADAM
--- NOTE | 2018-12-26 13:58 | HP ---
PRIMARY CARE PROVIDER: None. CHIEF COMPLAINT: Shortness of breath. HISTORY OF PRESENT ILLNESS: Ms. Tapia is a pleasant 23-year-old lady, who was seen at [facility] on December 26, 2018. She was hospitalized here from December 20 to of this year for congestive heart failure exacerbation. She was discharged home with prescriptions for Entresto and furosemide. 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 She reports that over the last 2 days, she has had worsening shortness of breath. The shortness of breath is worse with exertion. She also endorses orthopnea. She also reports some nausea and vomiting, but that has now resolved. She denies any fevers or chills. She denies any chest pain. REVIEW OF SYSTEMS: All other systems reviewed and found to be negative. PAST MEDICAL HISTORY: Paroxysmal atrial fibrillation, cardiomyopathy with ejection fraction of 20% to 25%, status post AICD placement. PAST SURGICAL HISTORY: Tonsillectomy, adenoidectomy, and tubal ligation. SOCIAL HISTORY: Smokes 3 to 5 cigarettes a day. The patient denies alcohol use or recreational drug use. FAMILY HISTORY: The patient denies any family history of premature coronary artery disease. ALLERGIES: NO KNOWN DRUG ALLERGIES. CURRENT MEDICATIONS: It is unclear whether the patient is compliant with her medications, but she is supposed to be on 1. Entresto 49/51 mg one tablet two times a day. 2. Potassium chloride 10 mEq daily. 3. Coreg 3.125 mg 2 times a day. 4. Lipitor 20 mg daily. 5. Ferrous sulfate 325 mg daily. PHYSICAL EXAMINATION: GENERAL: On examination, Ms. Tapia is awake and alert, not in acute distress. VITAL SIGNS: Blood pressure is 102/59, pulse 91, respiratory rate 16, and oxygen saturation 98% on room air. She is afebrile. EYES: No scleral icterus, no conjunctival pallor. ENT: Moist mucosal membranes. No oropharyngeal erythema or exudates. NECK: Supple, nontender, trachea is midline. The patient has jugular venous distention. RESPIRATORY: Accessory muscles of breathing are mildly active. Chest wall movements are symmetric bilaterally. Lung examination reveals bibasilar crackles. CARDIOVASCULAR: S1 and S2 are heard, regular. Peripheral pulses are palpable. No carotid bruit. No pericardial rub. ABDOMEN: Soft, nontender, bowel sounds heard, no hepatomegaly, no splenomegaly. NEUROLOGIC: Cranial nerves 2 through 12 intact, deep tendon reflexes 2+. MUSCULOSKELETAL: Power is 5/5 in all 4 extremities. SKIN: No rashes or subcutaneous nodules. The patient has trace lower extremity edema. LYMPHATIC: No cervical lymphadenopathy. PSYCHIATRIC: Normal mood, normal affect, the patient is oriented to person, place, and time. LABORATORY DATA: Ms. Tapia's labs and investigations were reviewed. I reviewed her electrocardiogram, which shows sinus tachycardia, no ST changes to suggest an acute coronary syndrome. I also reviewed her chest x-ray, which shows small bilateral pleural effusions. She has leukocytosis with 11,200 white cells, of which 63.2% are neutrophils, normocytic anemia with hemoglobin 10.4, normal platelet count, elevated AST of 50; elevated ALT of 124, normal CK, normal total bilirubin, normal alkaline phosphatase, elevated BNP of 2631, negative serum test and troponin I that is negative x3. Please note that the patient had AST of 169 on December 20 of this year. She had ALT of 272 on December 20 of this year. Urinalysis is positive for moderate amount of leukocyte esterase. ASSESSMENT AND PLAN: Ms. Tapia is a pleasant 23-year-old lady, who was seen at [facility] on December 26, 2018. Her problem list includes: 1. Congestive heart failure exacerbation: Ms. Tapia is presenting with congestive heart failure exacerbation, systolic, NYHA class 3 and ACC/AHA class C. This is in the context of medication noncompliance. She will be admitted to the hospital for further management. We will treat her with furosemide. 2. Cardiomyopathy: The patient has a history of cardiomyopathy. We will continue her on Entresto and Coreg. 3. Abnormal liver function tests: Most likely secondary to hepatic congestion from congestive heart failure, improved since last admission. 4. Medication noncompliance: The patient has been counseled regarding being compliant with her medications. 5. History of atrial fibrillation: The patient is currently in sinus rhythm. LEVEL OF RISK: High. LEVEL OF COMPLEXITY: High. Job ID: [id number]
[2018-12-26] MEDS: Furosemide 40 MG/4 ML VIAL SLOW IVP SCH (14:10)
[2018-12-26] MEDS ORDERED: Cyclobenzaprine 10 MG TAB PO PRN (16:51)
[2018-12-26] MEDS: Carvedilol 3.125 MG TAB PO SCH (16:59)
[2018-12-27] MEDS: Melatonin 3 MG TAB PO PRN (02:21)
[2018-12-27 05:33] LABS: #Basophils 0.1 thou/uL (0.0-0.2); #Eosinphils 0.1 thou/uL (0.0-0.7); #Lymphocytes 2.4 thou/uL (1.20-3.40); #Monocytes 0.8 thou/uL (0.11-0.59); %Basophils 0.5 % (0.0-1.0); %Eosinophils 1.1 % (0.0-10.0); %Neutrophils 67.4 % (42.0-75.0); Hemoglobin 10.2 g/dL (12.0-16.0); Mean Corpuscular HGB CONC 29.9 g/dL (32.0-36.0); Mean Corpuscular Hemoglobin 23.7 pg (27.0-31.0); Mean Corpuscular Volume 79.3 fL (78.0-98.0); Mean Platelet Volume 9.5 fL (7.4-10.4); Platelet Count 284 thou/uL (130-400); RBC Distribution Width 17.9 % (11.5-14.5); Red Blood Cell (RBC) Count 4.32 mill/uL (4.20-5.40); White Blood Cell (WBC) Count 10.3 thou/uL (4.8-10.8)
[2018-12-27 05:49] LABS: Anion Gap 12 mmol/L (10-20); BUN (Urea Nitrogen) 16 mg/dL (7.0-18.7); Calc. Creatinine Clearance 84 mL/min (70-130); Calcium 8.8 mg/dL (7.8-10.44); Carbon Dioxide 27 mmol/L (22-29); Chloride 100 mmol/L (98-107); Estimated GFR-MDRD 89; Glucose 106 mg/dL (70-105); Potassium 3.6 mmol/L (3.5-5.1); Sodium 135 mmol/L (136-145)
[2018-12-27] MEDS: Furosemide 40 MG/4 ML VIAL SLOW IVP SCH ×2 (06:36→14:33)
[2018-12-27] MEDS: Carvedilol 3.125 MG TAB PO SCH (08:46)
[2018-12-27] MEDS ORDERED: metroNIDAZOLE 500 MG TAB PO SCH ×3 (09:00→11:00)
[2018-12-27] MEDS ORDERED: Enoxaparin Sodium 40 MG/0.4 ML SYRINGE SC SCH (09:00)
[2018-12-27] MEDS ORDERED: Furosemide 20 MG TAB PO SCH (14:45)
[2018-12-27 15:31] VITALS: BP 96/61; TEMP 97.2
--- NOTE | 2018-12-27 21:38 | DIS ---
DATE OF ADMISSION: 12/25/2018 DATE OF DISCHARGE: 12/27/2018 PRIMARY CARE PROVIDER: [facility]. DISCHARGE DIAGNOSES: 1. Acute on chronic systolic congestive heart failure, NYHA class III and ACC/ AHA class C. 2. Medication noncompliance. 3. Trichomonas infection. CONDITION OF PATIENT ON THE DAY OF DISCHARGE: Stable. I assessed Ms. Tapia on the day of discharge. She denies any chest pain or shortness of breath. Vital signs are stable. S1 and S2 are heard, regular. Lungs are clear to auscultation bilaterally. DISCHARGE MEDICATIONS: No change was made to her pre-admission home medications , which include: 1. Furosemide 20 mg mg daily. 2. Ferrous sulfate 325 mg 3 times a day. 3. Potassium chloride 10 mEq daily. 4. Senna-S tablet one tablet 2 times a day. 5. Lipitor 20 mg at bedtime. 6. Coreg 3.125 mg 2 times a day. 7. Entresto 49/51 mg tablet, one tablet 2 times a day. HOSPITAL COURSE: Ms. Tapia is a pleasant 23-year-old lady who was admitted to [facility] on December 25, 2018, for congestive heart failure exacerbation in the context of medication noncompliance. She was treated with intravenous diuretics, subsequently stepped down to oral diuretics. She improved clinically. Urinalysis was positive for Trichomonas. After discussion with Gynecology Hospitalist service, Ms. Tapia received 2000 mg of metronidazole as a single dose. Urine was also sent for a gonococcal/Chlamydia PCR and will take 2-3 days to result because it is a send out test. She has been advised to follow up with primary care provider for the result and for further management. She has also been advised to check her blood pressure and heart rate 3 times a day and show the readings to her primary care provider. She is advised to follow up with primary care provider in 3 to 5 days. Patient was diagnosed in the past with atrial fibrillation but I could not find documented atrial fibrillation. She was in sinus rhythm during this hospitalization. The atrial fibrillation was probably situational, and she is at high risk for anticoagulants due to medication noncompliance. She was not started on anticoagulation during this hospitalization. Ms. Tapia expressed understanding of the instructions. On the day of discharge, she has sodium 135, potassium 3.6, creatinine 0.93, white count 09090, hemoglobin 10.2, and platelet count 284,000. Many thanks for allowing me to participate in your patient's care. Please feel free to contact me with any questions or concerns. DISCHARGE DESTINATION: Home. TIME SPENT: Total amount of time spent coordinating this discharge: 32 minutes. Job ID: [id number] MTDD
== END 2018-12-27 17:05 | disposition home or self-care (01) | DRG 292 ==
LOC: ERS 20:54 → 2SE 23:50
PROVIDERS: ADMIT Internal Medicine; ATTEND Internal Medicine
DX: I50.23 Acute on chronic systolic (congestive) heart failure (principal); I42.9 Cardiomyopathy, unspecified; A59.9 Trichomoniasis, unspecified; F32.9 Major depressive disorder, single episode, unspecified; F17.210 Nicotine dependence, cigarettes, uncomplicated; I48.0 Paroxysmal atrial fibrillation; Z95.810 Presence of automatic (implantable) cardiac defibrillator; Z79.899 Other long term (current) drug therapy; Z91.14 Patient's other noncompliance with medication regimen
CPT/HCPCS: 36415; 71045; 80048; 80053; 81003; 81015; 82550; 83880; 84484; 84703; 85025; 87491; 87591; 93005; 93798; J1650; J1940; J2270; J2405

== ENCOUNTER 2019-01-03 03:32 | Emergency (ER) | payer SELFPAY ==
[2019-01-03 04:12] LABS: Hemoglobin 10.9 g/dL (12.0-16.0); Mean Corpuscular Hemoglobin 24.6 pg (27.0-31.0); Mean Corpuscular Volume 79.4 fL (78.0-98.0); Mean Platelet Volume 9.9 fL (7.4-10.4); Platelet Count 261 thou/uL (130-400); RBC Distribution Width 18.4 % (11.5-14.5); Red Blood Cell (RBC) Count 4.42 mill/uL (4.20-5.40); White Blood Cell (WBC) Count 11.1 thou/uL (4.8-10.8)
[2019-01-03 04:21] LABS: AST (SGOT) 26 U/L (5-34); Albumin 3.5 g/dL (3.5-5.0); Anion Gap 16 mmol/L (10-20); Calc. Creatinine Clearance 0 mL/min (70-130); Calcium 8.4 mg/dL (7.8-10.44); Carbon Dioxide 16 mmol/L (22-29); Chloride 109 mmol/L (98-107); Estimated GFR-MDRD 77; Globulin 2.6 g/dL (2.4-3.5); Potassium 3.8 mmol/L (3.5-5.1); Protein, Total 6.1 g/dL (6.0-8.3); Sodium 137 mmol/L (136-145)
[2019-01-03 04:27] LABS: ALT (SGPT) 36 U/L (8-55); Alkaline Phosphatase 60 U/L (40-150); BUN (Urea Nitrogen) 17 mg/dL (7.0-18.7); Glucose 98 mg/dL (70-105); Lipase 11 U/L (8-78)
[2019-01-03 04:33] LABS: Anisocytosis SLIGHT = 6-15 cells (100X) (0-5/hpf); Band 1 % (5-11); Hypochromia SLIGHT = 6-15 cells (100X) (0-5/hpf); Lymphocytes 30 % (21-51); MDiff Complete? YES; Monocytes 7 % (0-10); Neutrophil 61 % (42-75); Platelet Morphology Comment Appears Adequate; Polychromasia SLIGHT = 2-3 cells (100X) (0-2/hpf); Reactive Lymphocytes 1 % (0-10)
[2019-01-03 07:20] LABS: CKMB 0.9 ng/mL (0-6.6)
[2019-01-03] MEDS ORDERED: Ondansetron ODT 4 MG TAB ONE (07:32)
[2019-01-03] MEDS ORDERED: Dicyclomine 20 MG TAB ONE (07:32)
--- NOTE | 2019-01-03 07:40 | RAD ---
EXAM: Single view of the chest HISTORY: Abdominal pain with nausea and vomiting for 2 days COMPARISON: 12/25/2018 FINDINGS: Single view of the chest shows an enlarged but stable cardiomediastinal silhouette. The pa cemaker is unchanged in position. There is no evidence of consolidation, mass, or pleural effusion. The bones are unremarkable. IMPRESSION: No evidence of acute cardiopulmonary disease
[2019-01-03 08:24] LABS: Bilirubin Negative (Negative); Blood, Urine Trace (Negative); Clarity CLOUDY (Clear); Glucose, Urine (Dipstick) Negative (Negative); Leukocyte Negative (Negative); Nitrite Negative (Negative); Protein, Urine (Dipstick) 100 mg/dL (Neg-Trace); Specific Gravity, Urine 1.026 (1.002-1.036); pH, Urine 5.5 (5.0-9.0)
[2019-01-03 08:26] LABS: Bacteria/HPF Rare-Few HPF (None Seen); Hyaline Casts/LPF 7-10 HYALINE CAST LPF (0-3 Hyaline); Pathc Cast-AUWi Flag 0.54 (0-2.49); WBC/HPF 0-3 HPF (0-3)
[2019-01-03 08:37] LABS: Pregnancy Test - Urine (BHCG) Negative (Negative); Pregu Control Background? CLEAR/WHITE (CLR/WHITE); Pregu Control Bar Appear? YES (CONTROL BAR); Specific Gravity 1.026 (1.002-1.036)
[2019-01-03 08:38] LABS: Amphetamine Not Detected (NotDetected); Barbiturates Screen Not Detected (NotDetected); Benzodiazepine Screen Not Detected (NotDetected); Cocaine Metabolite Screen Not Detected (NotDetected); Medtox Control Line Valid? VALID (VALID); Medtox Reader # READER 1; Methadone Not Detected (NotDetected); Methamphetamine Not Detected (NotDetected); Opiate Screen Not Detected (NotDetected); Oxycodone Screen Not Detected (NotDetected); Phencyclidine (PCP) Not Detected (NotDetected); THC/Cannabinoid Screen Detected (NotDetected); Tricyclic Screen Not Detected (NotDetected)
--- NOTE | 2019-01-03 09:10 | CT ---
CT Abdomen Pelvis W Con: 01/03/2019 6:27 AM CLINICAL INFORMATION: 2 day history of abdominal pain with nausea, vomiting, and diarrhea COMPARISON: 12/20/2018 TECHNIQUE: Multiple contiguous axial images were obtained and a CT of the abdomen and pelvis with IV contrast. Oral contrast was administered. Coronal reformats were performed. FINDINGS: Lower Chest: Small bilateral pleural effusions, right greater than left. Abdomen: Liver: within normal limits. Bile Ducts: Normal caliber. Gallbladder: Thickened wall with surrounding edema. No calcified gallstones identified. Pancreas: within normal limits. Spleen: within normal limits. Adrenals: within normal limits. Kidneys: within normal limits. Pelvis: Reproductive Organs: No pelvic masses. Ureters: within normal limits. Bladder: within normal limits. Peritoneum: No free air is seen. Moderate free fluid is seen in the pelvis. Bowel: Normal caliber. Mesentery and Retroperitoneum: No enlarged mesenteric or retroperitoneal lymph nodes. Vessels: Normal. Abdominal Wall: within normal limits. Bones: within normal limits. IMPRESSION: Stable exam with ascites, pleural effusions, and periportal edema.
[2019-01-03] MEDS ORDERED: ISOVUE-370 76%-LOCM 1 ML ONE (16:04)
== END 2019-01-03 09:45 | disposition home or self-care (01) ==
LOC: ERS 03:32
DX: R10.9 Unspecified abdominal pain (principal); I50.9 Heart failure, unspecified; E86.0 Dehydration; F12.10 Cannabis abuse, uncomplicated; I48.91 Unspecified atrial fibrillation; F32.9 Major depressive disorder, single episode, unspecified; F17.210 Nicotine dependence, cigarettes, uncomplicated; Z79.899 Other long term (current) drug therapy
CPT/HCPCS: 36415; 71045; 74177; 80053; 80306; 81003; 81015; 81025; 82553; 83605; 83690; 83880; 84484; 85025; 93005; 94760; Q0162; Q9966

== ENCOUNTER 2019-01-05 16:05 | Emergency (ER) | payer SELFPAY ==
[2019-01-05 17:33] LABS: Hemoglobin 11.2 g/dL (12.0-16.0); Mean Corpuscular HGB CONC 29.3 g/dL (32.0-36.0); Mean Corpuscular Hemoglobin 23.9 pg (27.0-31.0); Mean Corpuscular Volume 81.4 fL (78.0-98.0); Mean Platelet Volume 9.7 fL (7.4-10.4); Platelet Count 278 thou/uL (130-400); RBC Distribution Width 18.4 % (11.5-14.5); Red Blood Cell (RBC) Count 4.67 mill/uL (4.20-5.40)
--- NOTE | 2019-01-05 17:40 | RAD ---
AP CHEST: 01/05/19 HISTORY: Chest pain. The lungs appear clear of infiltrate. Heart size is upper normal and stable. AICD leads again noted. No change when compared to exam of 01/03/19. IMPRESSION: No acute process identified. POS: [facility]
[2019-01-05 17:52] LABS: ALT (SGPT) 104 U/L (8-55); AST (SGOT) 76 U/L (5-34); Alkaline Phosphatase 68 U/L (40-150); Anion Gap 16 mmol/L (10-20); BUN (Urea Nitrogen) 15 mg/dL (7.0-18.7); Bilirubin, Total 1.4 mg/dL (0.2-1.2); Calc. Creatinine Clearance 0 mL/min (70-130); Calcium 8.9 mg/dL (7.8-10.44); Carbon Dioxide 20 mmol/L (22-29); Chloride 103 mmol/L (98-107); Estimated GFR-MDRD 63; Globulin 2.6 g/dL (2.4-3.5); Glucose 100 mg/dL (70-105); Potassium 3.6 mmol/L (3.5-5.1); Protein, Total 6.6 g/dL (6.0-8.3); Sodium 135 mmol/L (136-145)
[2019-01-05 18:04] LABS: #Basophils 0.1 thou/uL (0.0-0.2); #Eosinphils 0.2 thou/uL (0.0-0.7); #Lymphocytes 3.9 thou/uL (1.20-3.40); #Monocytes 1.3 thou/uL (0.11-0.59); #Neutrophils 6.6 thou/uL (1.40-6.50); %Basophils 1.1 % (0.0-1.0); %Eosinophils 1.3 % (0.0-10.0); %Lymphocytes 32.3 % (21.0-51.0); %Monocytes 10.5 % (0.0-10.0); %Neutrophils 54.8 % (42.0-75.0); Anisocytosis SLIGHT = 6-15 cells (100X) (0-5/hpf); Hypochromia SLIGHT = 6-15 cells (100X) (0-5/hpf); MDiff Complete? YES; Platelet Morphology Comment Appears Adequate; Poikilocytosis SLIGHT = 6-15 cells (100X) (0-5/hpf)
[2019-01-05 18:07] LABS: BHCG - Serum Negative (NEGATIVE); Pregs Control Background? CLEAR/WHITE (CLR/WHITE); Pregs Control Bar Appear? YES (CONTROL BAR)
[2019-01-05] MEDS ORDERED: Ondansetron PF 4 MG/2 ML Vial ONE ×2 (19:10→19:36)
[2019-01-05] MEDS ORDERED: Morphine 4 MG/ML VIAL ONE (19:10)
[2019-01-05 20:30] LABS: Bilirubin Small (Negative); Blood, Urine Large (Negative); Clarity CLOUDY (Clear); Glucose, Urine (Dipstick) Negative (Negative); Leukocyte Small (Negative); Nitrite Negative (Negative); Protein, Urine (Dipstick) 100 mg/dL (Neg-Trace); Specific Gravity, Urine 1.025 (1.002-1.036); pH, Urine 5.5 (5.0-9.0)
[2019-01-05 20:41] LABS: Bacteria/HPF 4+ HPF (None Seen); Hyaline Casts/LPF NONE SEEN LPF (0-3 Hyaline)
--- NOTE | 2019-01-05 21:32 | CT ---
CTA CHEST WITH CONTRAST: Date: 01/05/19 Multiple axial tomograms obtained through chest following angio protocol with multiplanar reconstruct ion and 3D postprocessing. INDICATION: Elevated D-Dimer. Assess for pulmonary embolus. FINDINGS: Pulmonary arteries are adequately opacified. There is no evidence of pulmonary embolus. There are small bilateral pleural effusions, slightly larger on the right. Mild stranding and atelect asis in the lung bases. No evidence of inflammatory infiltrate. Nonspecific mediastinal and hilar lym ph nodes. Increased density in the anterior mediastinum may represent residual thymus or adenopathy. IMPRESSION: 1. Small bilateral pleural effusions, slightly larger on the right. 2. No evidence of pulmonary embolus. 3. Nonspecific mediastinal and hilar lymph nodes. POS: [facility]
[2019-01-05 22:19] LABS: Amphetamine Not Detected (NotDetected); Barbiturates Screen Not Detected (NotDetected); Benzodiazepine Screen Not Detected (NotDetected); Cocaine Metabolite Screen Not Detected (NotDetected); Medtox Control Line Valid? VALID (VALID); Medtox Reader # READER 1; Methadone Not Detected (NotDetected); Methamphetamine Not Detected (NotDetected); Opiate Screen Detected (NotDetected); Oxycodone Screen Not Detected (NotDetected); Phencyclidine (PCP) Not Detected (NotDetected); THC/Cannabinoid Screen Detected (NotDetected); Tricyclic Screen Not Detected (NotDetected)
[2019-01-07 00:39] LABS: Chlamydia by PCR Not Detected (NotDetected); GC by PCR Not Detected (NotDetected)
== END 2019-01-05 22:22 | disposition home or self-care (01) ==
LOC: ERS 16:05
DX: M79.10 Myalgia, unspecified site (principal); R79.1 Abnormal coagulation profile; R11.10 Vomiting, unspecified; I50.9 Heart failure, unspecified; I48.91 Unspecified atrial fibrillation; F32.9 Major depressive disorder, single episode, unspecified; F17.210 Nicotine dependence, cigarettes, uncomplicated; Z79.891 Long term (current) use of opiate analgesic
CPT/HCPCS: 36415; 71045; 71275; 80053; 80306; 81003; 81015; 82550; 83690; 83880; 84484; 84703; 85025; 85379; 87086; 87480; 87491; 87510; 87591; 87660; 93005; 96374; 96375; J2270; J2405; Q9966

== ENCOUNTER 2019-01-07 16:46 | Inpatient (IN) | payer SELFPAY ==
[2019-01-07 18:12] LABS: #Lymphocytes 1.8 thou/uL (1.20-3.40); #Monocytes 1.6 thou/uL (0.11-0.59); #Neutrophils 10.1 thou/uL (1.40-6.50); %Basophils 0.4 % (0.0-1.0); %Eosinophils 0.2 % (0.0-10.0); %Lymphocytes 13.2 % (21.0-51.0); %Neutrophils 74.2 % (42.0-75.0); Hemoglobin 10.5 g/dL (12.0-16.0); Mean Corpuscular HGB CONC 30.3 g/dL (32.0-36.0); Mean Corpuscular Hemoglobin 24.6 pg (27.0-31.0); Mean Corpuscular Volume 81.3 fL (78.0-98.0); Platelet Count 191 thou/uL (130-400); RBC Distribution Width 18.2 % (11.5-14.5); Red Blood Cell (RBC) Count 4.28 mill/uL (4.20-5.40); White Blood Cell (WBC) Count 13.6 thou/uL (4.8-10.8)
--- NOTE | 2019-01-07 18:15 | RAD ---
PORTABLE CHEST: 01/07/19 HISTORY: Stroke alert. COMPARISON: 01/05/19. Mild cardiomegaly. AICD leads are seen. No evidence of infiltrate or significant vascular congestion. No significant change. IMPRESSION: No acute findings. POS: [facility]
[2019-01-07 18:20] LABS: Prothrombin Time 17.8 SEC (12.0-14.7)
[2019-01-07 18:23] LABS: PTT 28.7 SEC (22.9-36.1)
[2019-01-07 18:25] LABS: INR-International Normal Ratio 1.5
[2019-01-07 18:34] LABS: ALT (SGPT) 128 U/L (8-55); AST (SGOT) 84 U/L (5-34); Albumin 3.3 g/dL (3.5-5.0); Alkaline Phosphatase 59 U/L (40-150); Anion Gap 16 mmol/L (10-20); BUN (Urea Nitrogen) 15 mg/dL (7.0-18.7); Bilirubin, Total 1.2 mg/dL (0.2-1.2); CK (CPK) 150 U/L (29-168); Calc. Creatinine Clearance 0 mL/min (70-130); Calcium 8.4 mg/dL (7.8-10.44); Carbon Dioxide 18 mmol/L (22-29); Chloride 105 mmol/L (98-107); Estimated GFR-MDRD 76; Globulin 2.3 g/dL (2.4-3.5); Glucose 93 mg/dL (70-105); Potassium 3.9 mmol/L (3.5-5.1); Protein, Total 5.6 g/dL (6.0-8.3); Sodium 135 mmol/L (136-145)
--- NOTE | 2019-01-07 18:43 | CT ---
CT HEAD WITHOUT CONTRAST: 01/07/19 Multiple axial tomograms obtained through the head without IV enhancement. INDICATIONS: Stroke alert. Left sided weakness. COMPARISON: Comparison made to CT head 11/11/18. FINDINGS: There is new lucency seen in the right basal ganglia primarily involving the lentiform nucleus on the right and involving the right caudate head. This is consistent with a deep subacute infarct which is rather extensive. It extends to the external capsule on the right. There is no hemorrhage. No evidence of cortical infarct. The previously described calcifications involving the tectum and the posterior thalamus on the right are again seen and unchanged. No evidence of cortical infarct. No other interval change. IMPRESSION: Evidence of subacute infarct involving the right basal ganglia. This appears to primarily involve janene tiform nucleus probably putamen and caudate on the right. There is no acute hemorrhage associated wit h this deep infarct. Findings relayed to Margaret Kelly at 5:33 p.m. POS: [facility]
[2019-01-07 18:58] LABS: CKMB 4.7 ng/mL (0-6.6)
[2019-01-07] MEDS ORDERED: Aspirin 325 MG TAB ONE (19:22)
[2019-01-07 22:09] VITALS: BMI 22.8
[2019-01-07] MEDS ORDERED: metroNIDAZOLE 500 MG TAB PO SCH (22:45)
[2019-01-07 23:47] LABS: INR-International Normal Ratio 1.6; PTT 32.3 SEC (22.9-36.1); Prothrombin Time 18.8 SEC (12.0-14.7)
[2019-01-07 23:55] LABS: D-Dimer Test 9.18 *mcg/mL (0.27-0.43)
[2019-01-08] MEDS ORDERED: Sodium Chloride 0.9% 1,000 ML IV SCH (01:00)
[2019-01-08] MEDS ORDERED: traMADol HCl 50 MG TAB PO PRN (01:28)
--- NOTE | 2019-01-08 02:06 | HP ---
CHIEF COMPLAINT: Left-sided weakness. HISTORY OF PRESENT ILLNESS: The patient is a 23-year-old female with a past medical history of cardiomyopathy with AICD, who presents to the hospital with complaints of left-sided weakness and facial droop. The patient stated that she did present to the ER on the with headache and generalized body aches and pains. The patient at that time had undergone a CTA, which did not indicate any acute abnormalities. The patient stated that when she left the ER on the , she started having left arm weakness and numbness. The patient stated that initially she thought that her weakness would improve, however, her weakness continued to worsen to the point that she had left arm with her right arm, so she came into the ER for further evaluation. The patient also states that she has been nauseated and has not been eating very much for the past 4 or 5 days. Denies any diarrhea, however, complains of generalized abdominal pain. She denies any fevers or chills. The patient states that she has been dragging her left foot also for ambulation. In the ED, the patient did have a CT brain which did indicate evidence of acute infarct involving the right basal ganglia. The patient was admitted to the hospital for further evaluation. PAST MEDICAL HISTORY: She has a history of cardiomyopathy. She has an AICD. Her EF was 20% to 25%. PAST SURGICAL HISTORY: She has had a tonsillectomy, adenoidectomy, and tubal ligation. SOCIAL HISTORY: She still smokes 3-5 cigarettes a day. Denies use of any control or any hormone medications. She also denies any alcohol use or recreational drug use. She currently lives with her two children and she is a full code. FAMILY HISTORY: Denies any history of premature coronary syndrome or any autoimmune processes. ALLERGIES: SHE HAS NO KNOWN DRUG ALLERGIES. MEDICATIONS: 1. She takes Entresto 49/51 mg one p.o. twice a day. 2. She takes potassium 10 mEq daily. 3. She takes Lipitor 20 mg daily and iron 325 daily. REVIEW OF SYSTEMS: All negative except for the ones mentioned above in the HPI. PHYSICAL EXAMINATION: VITAL SIGNS: Are as of the following. Her temperature is 99.4, heart rate of 105, 16, 100% on room air. Her blood pressure is 101/78. GENERAL: Awake, alert, and oriented x3. Does not appear in any distress. HEENT: Normocephalic and atraumatic. No lymphadenopathy noted. Pupils are equal and reactive to light. CV: S1 and S2 present. She does have a slight systolic murmur to her left sternal border. LUNGS: Clear to auscultation. No rhonchi or wheezes noted. ABDOMEN: Soft. Bowel sounds present x2. She does have pain on palpation to her left lower abdominal area. EXTREMITIES: No edema. Pedal pulses are present x2. NEUROVASCULAR: She does have significant amount of weakness to her left upper and left lower extremity compared to her right. She does also have a right facial droop. She is oriented x3. SKIN: No cuts, lesions, or bruises noted. LABORATORY RESULTS: As of the following; WBCs of 13.6, hemoglobin of 10.5, hematocrit of 34.8, her platelets are 191. Chemistry; sodium of 135, potassium of 3.8, BUN of 15, creatinine 1.06. AST is 84, ALT is 128. Her troponin was 2.6. She did have a CT head, which did indicate subacute infarct involving the right basal ganglia. She also had a chest x-ray, which indicated no acute findings. She also recently had a CTA on January 05, 2019, which just indicated some mild pleural effusion. However, no evidence of thrombosis was noted. Nonspecific mediastinal and hilar lymph nodes was noted. She also had an abdomen pelvic CT, which indicated stable exam with ascites, pleural effusion, and periportal edema. ASSESSMENT AND PLAN: The patient is a 23-year-old female, who presents to the hospital with left-sided weakness. 1. Acute stroke. I will order an MRI, however, she does have an AICD. We have to check if it is MRI compatible. I will go ahead and order CTA just to rule out any other abnormalities. I will also get an echo with a bubble study since given her age of 23, she is pretty young to have a stroke. According to her, she is not on any control. She does not take any hormones. She has a remote history of deep venous thrombosis, however, it seems to be provoked after her . She, I believe has never had any miscarriages and she is not on any anticoagulation. I will also check a hypercoagulable workup on her. I will also check an SILVER on her and Neurology has been consulted. I will start her on aspirin since she is not on aspirin and now, we will start her on statin and I will check her lipid panel in the morning. 2. Mild elevated leukocytosis. Upon reviewing her chart, she has had some mildly elevated leukocytosis with this vague symptoms that she has been having also with abdominal pain, nausea, and vomiting. Again, I have checked an SILVER. I will go ahead and also check HIV positive if the patient allows me to. 3. History of cardiomyopathy with systolic heart failure, currently compensated. The patient in the past has not been very compliant with her medications. However, according to the mother, she has been more compliant. We will continue her medications. We will hold off on her blood pressure medications since she is a little hypotensive, but we will start her on some gentle hydration. Continue to monitor. 4. Recently diagnosed with Trichomonas. The patient's mother stated that she is supposed to start on Flagyl. I will start the Flagyl 500 every eight for her Trichomonas treatment. 5. Nausea and vomiting. She did have a tubal ligation. However, I will just go ahead and check a test on the patient. 6. Elevated troponins. This could be secondary to demand ischemia. The patient currently does not have any pain in her chest. However, she has significant elevation of her troponins. I will trend the troponins. She does not have any significant EKG changes and we will continue to monitor. Job ID: [id number]
[2019-01-08 02:15] LABS: Critical Call Chem Troponin I RESULT DECREASING; Troponin I 2.543 ng/mL (< 0.028)
[2019-01-08] MEDS ORDERED: Morphine 2 MG/ML SYRINGE SLOW IVP SCH (02:45)
[2019-01-08] MEDS ORDERED: Sodium Chloride 0.9% 250 ML IV SCH (04:30)
[2019-01-08 05:26] LABS: BHCG - Serum Negative (NEGATIVE); Pregs Control Background? CLEAR/WHITE (CLR/WHITE); Pregs Control Bar Appear? YES (CONTROL BAR)
[2019-01-08] MEDS ORDERED: Sodium Chloride 0.9% 500 ML IV SCH (05:30)
[2019-01-08 05:36] LABS: Cardiac Risk 6.1 (Less than 4.5)
[2019-01-08 05:44] LABS: Troponin I 2.846 ng/mL (< 0.028)
[2019-01-08] MEDS ORDERED: Fentanyl 100 MCG/2 ML VIAL SLOW IVP SCH (06:00)
[2019-01-08] MEDS ORDERED: Morphine 4 MG/ML VIAL SLOW IVP SCH (08:15)
[2019-01-08] MEDS ORDERED: Aspirin 325 mg Enteric Coated Tablet PO SCH (09:00)
[2019-01-08] MEDS ORDERED: metroNIDAZOLE 500 MG TAB PO SCH (09:00)
[2019-01-08] MEDS ORDERED: Ferrous Sulfate 325 MG TAB PO SCH (09:00)
[2019-01-08 09:41] LABS: Factor VIII Test 326.8 % ACTIVE (56-157); Protein C Activity 44 % (78-152)
--- NOTE | 2019-01-08 11:46 | CT ---
CTA HEAD WITH AND WITHOUT CONTRAST: 01/08/19 Multiple axial tomograms obtained through the head without IV enhancement. This is followed by tomogr ams through the head with IV enhancement in the arterial phase following the cerebral angio protocol with multiplanar reconstruction and 3D post processing. INDICATIONS: Left arm weakness. Right basal ganglia infarct previously described. CT HEAD WITHOUT CONTRAST: Comparison made to yesterday's CT head. Abnormal lucency in the right basal ganglia again noted consistent with subacute infarct. This involv es lentiform nucleus, primarily putamen. It involves the head of the caudate as noted on yesterday's exam. There is no hemorrhage. No significant change when compared to yesterday. The calcifications at the tectum and posterior thalamus on the right have been previously described. IMPRESSION: A large right basal ganglia infarct which appears unchanged from yesterday. CTA HEAD: The intracranial right internal carotid artery is asymmetrically narrowed when compared to the left s mellisa. This extends into the neck begging at the origin of the left ICA. This luminal narrowing becomes very prominent in the intracranial portion of the right ICA. The cavernous portion of the right ICA shows significant luminal narrowing compared to the left estimated at 50%. The supraclinoid portion and the right ICA terminus shows significant luminal narrowing of greater than 50% when compared to t he left side. The right proximal M1 segment is small. There is occlusion of the mid right M1. ACAs appear symmetric and patent. The left MCA is patent. The basilar artery is patent. Posterior cerebrals appear patent and symmetric. IMPRESSION: 1. Severe luminal narrowing of the right internal carotid artery. The intracranial portion of th e right ICA shows significant luminal narrowing with more severe luminal narrowing in the cavernous a nd supraclinoid portions of the right ICA. 2. There is occlusion of the mid right M1. Considerations would include a right ICA dissection although a flap is not identified on CT angio. As ymmetric arteritis is also a consideration. Call made to Dr. Gonzales at time of this dictation. CT NECK: Axial tomograms obtained through the neck with multiplanar reconstruction and 3D post processing. INDICATIONS: Stroke. FINDINGS: No evidence of stenosis at the origin of the arch vessels. Common carotid arteries appear normal and symmetric. The left bulb and left ICA appear unremarkable. There is limited layering at the origin of the right internal carotid artery when compared to the left side. Vessel is seen throughout with no beading. T here is no evidence of flap or internal dissection. Degree of stenosis when compared to the left ICA is estimated at 50% by NASCET criteria. Images through the lung apices show small bilateral effusions. The vertebral arteries appear patent a nd symmetric. IMPRESSION: Asymmetric luminal narrowing of the right internal carotid artery when compared to the left. See disc ussion above of CTA head report. POS: SHERRI
[2019-01-08 12:44] LABS: PT - Undiluted 19.5 SEC (12.0-14.7)
--- NOTE | 2019-01-08 12:58 | PDOC.PN ---
- Subjective Encounter Start Date: 01/08/19 Encounter Start Time: 09:00 Subjective: has left sided weakness, is able to lift her extremities against gravity fo -: -r 10 seconds. c/o throat pain, no chest pain or sob or palp -: mother at bedside - Objective MAR Reviewed: Yes Vital Signs & Weight: Vital Signs (12 hours) Temp Pulse Resp BP Pulse Ox 01/08/19 11:30 98.3 F 114 H 14 109/88 94 L 01/08/19 07:55 97.4 F L 120 H 18 102/88 97 01/08/19 06:03 98 01/08/19 04:47 101/80 01/08/19 04:00 98.5 F 123 H 19 92 L 01/08/19 03:47 103/80 01/08/19 02:37 92/80 Weight Admit Weight 129 lb 1.6 oz Weight 129 lb 1.6 oz Result Diagrams: 01/07/19 17:58 01/07/19 17:58 Additional Labs: Accuchecks 01/07/19 17:09 POC Glucose 112 H Phys Exam - Physical Examination HEENT: PERRLA, moist MMs Neck: supple jvd+ Respiratory: no wheezing basal rales+ Cardiovascular: RRR, no significant murmur Gastrointestinal: soft, non-tender, positive bowel sounds Musculoskeletal: no edema, pulses present Neurological: moves all 4 limbs left hemiparesis strength of 3-4/5, no cranial nr deficits Psychiatric: normal affect, A&O x 3 Dx/Plan (1) Acute CVA (cerebrovascular accident) Code(s): I63.9 - CEREBRAL INFARCTION, UNSPECIFIED Status: Acute Comment: left hemiparesis with right basal ganglia infarct (2) Dyslipidemia Code(s): E78.5 - HYPERLIPIDEMIA, UNSPECIFIED Status: Chronic (3) Chronic anemia Code(s): D64.9 - ANEMIA, UNSPECIFIED Status: Chronic (4) Cardiomyopathy Code(s): I42.9 - CARDIOMYOPATHY, UNSPECIFIED Status: Chronic Comment: ef of 20% in 10/2018 (5) History of automatic internal cardiac defibrillator (AICD) Code(s): PCB4470 - Status: Chronic - Plan d/w , to r/o LV thrombus, has prior history of it? -: is on aspirin, lipitor, stroke team -: NSX consult for help with CTA findings ?dissection, right M1 occlusion? -: dc iv fluids, has elevated jvd, likely has low output with low BP -: add oral iron, throat swab to r/o strep. D/w pt and mom at bedside * . Review of Systems - Medications/Allergies Allergies/Adverse Reactions: Allergies Allergy/AdvReac Type Severity Reaction Status Date / Time No Known Drug Allergies Allergy Verified 12/26/18 00:13 Medications: Current Medications Aspirin (Ecotrin) 325 mg PO DAILY [facility] Last Admin: 01/08/19 10:30 Dose: 325 mg Atorvastatin Calcium (Lipitor) 80 mg PO HS RODERICK Ferrous Sulfate (Feosol) 325 mg PO DAILY [facility] Last Admin: 01/08/19 10:30 Dose: 325 mg Sodium Chloride (Flush - Normal Saline) 10 ml IVF PRN PRN PRN Reason: Saline Flush Tramadol HCl (Ultram) 50 mg PO Q4H PRN PRN Reason: Pain Last Admin: 01/08/19 01:38 Dose: 50 mg
[2019-01-08 13:02] LABS: PTT 1:1 Mix 29.8 SEC
[2019-01-08 13:50] LABS: HEX PHOS LA Tube 1 57.4 SEC; Hexagonal Phospholipid Neut 6.4 SEC (0-8.0)
[2019-01-08 13:52] LABS: DRVVT Confirm 47.2; DRVVT Ratio 0.8 Ratio (1.2 or Less); DRVVT Screen 36.5 SEC (20-50)
[2019-01-08 14:36] LABS: PT 1:1 37C-90 min. Incubation 14.6 SEC; PTT 1:1 37C/90 MIN Incubation 31.2 SEC
--- NOTE | 2019-01-08 17:56 | CON ---
DATE OF CONSULTATION: 01/08/2019 REASON FOR CONSULTATION: Stroke and history of cardiomyopathy, severe. HISTORY OF PRESENT ILLNESS: Ms. Isabella Tapia is a very pleasant 23-year-old woman. She has a history of cardiomyopathy, unfortunately was very noncompliant with that treatment initially. She re-presented with worsening heart failure here this year and was found to have severely depressed left ventricular function. She does have a defibrillator implantation. She was initially again not comply with treatment, but now is compliant with treatment. She is admitted to the hospital on this occasion with left-sided weakness, found to have a stroke. Her predominance problem is left-sided weakness and facial droop. The CT's of the brain indicated acute infarct involving the right basal ganglia. PAST MEDICAL HISTORY: Severe cardiomyopathy. PAST SURGICAL HISTORY: Previous defibrillator implantation. SOCIAL HISTORY: Still smokes 3 to 5 cigarettes per day. FAMILY HISTORY: She had a child with heart disease and I believe in infancy. MEDICATIONS: 1. Entresto 49/51 twice a day. Ultimately, we are hoping to add a beta blockers, but we tried one medicine that time and she had been very noncompliant. 2. Lipitor. 3. Iron. REVIEW OF SYSTEMS: Negative otherwise other than as outlined above. PHYSICAL EXAMINATION: GENERAL: This is a young-appearing 23-year-old woman, has difficulty moving the left arm. VITAL SIGNS: Blood pressure 109/88 and pulse 114. LUNGS: Clear. CARDIAC: She is tachycardic for rest. ABDOMEN: Soft and nontender. EXTREMITIES: No clubbing or cyanosis. She has no edema. NEUROLOGIC: The patient has decreased strength in left arm and leg and left facial droop. DIAGNOSTIC DATA: CT scan revealed the findings as outlined above. The most recent echocardiogram showed severely depressed left ventricular function, ejection fraction 15% to 20%, left ventricular dilatation, mild tricuspid insufficiency. CONCLUSION: 1. Acute ischemic stroke. 2. Defibrillator interrogated. No evidence of any atrial arrhythmias. 3. History of left ventricular thrombus in the remote past, not seen on recent echocardiogram. 4. History of noncompliance, but she has become more compliant more recently, especially with the help of her mother. PLAN: 1. Continue Entresto. 2. When feasible, add low-dose beta blockers. At this point, we do not want to drop her blood pressure any further. 3. Echocardiogram pending. Dr. South will read this weekend. Job ID: [id number]
[2019-01-08 20:20] VITALS: BP 128/102; TEMP 98.3
[2019-01-08] MEDS ORDERED: Atorvastatin Calcium 40 MG TAB PO SCH (21:00)
--- NOTE | 2019-01-08 22:46 | CON ---
DATE OF CONSULTATION: 01/08/2019 CONSULTING PHYSICIAN: Hospitalist Service. IMPRESSION: Right internal carotid partial occlusion, possible dissection with resultant deep right basal ganglia infarct and left sided weakness and numbness. PLAN: 1. Add anticoagulation with Eliquis. 2. Rehab screening. HISTORY OF PRESENT ILLNESS: Ms. Tapia is a 23-year-old black female with a known history of -induced heart failure. She has an ejection fraction between 15% and 20%. She presented yesterday with acute onset of headache and left-sided weakness. CT scan of the brain showed evidence of a large basal ganglia infarct. There is no evidence of hemorrhage. CT angiogram shows internal carotid artery stenosis at the cavernous portion. There were no definite signs of a dissection, but there was clear stenosis present. She reports her symptoms have been fairly stable since yesterday. She was on aspirin prior to admission. PAST MEDICAL HISTORY: Congestive heart failure. ALLERGIES: NONE. SOCIAL HISTORY: No tobacco or alcohol. FAMILY HISTORY: Noncontributory. MEDICATIONS: Medication list was reviewed. REVIEW OF SYSTEMS: Ten-system review of systems is otherwise negative. PHYSICAL EXAMINATION: VITAL SIGNS: Blood pressure 94/73, pulse 105, respirations 14, temperature 97.4. HEENT: Pupils are equal and reactive. Conjunctivae are clear. Oropharynx is clear. NECK: Supple. EXTREMITIES: No cyanosis. NEUROLOGIC: She is alert and cooperative. Her speech is minimally dysarthric. Face appears to be symmetric. There is antigravity strength in the left side, albeit minimally against gravity. Sensation is diminished to touch. Gait is not tested. No abnormal movements are seen. LABORATORY STUDIES: Unremarkable CBC. Coags showed low protein C, antithrombin 3, was low and factor VIII activity was high. Chemistry panel was limited, but her cholesterol risk ratio was actually 6.1 with a total cholesterol of 110. Imaging was reviewed. SUMMARY: Appears to be partial right ICA occlusion with probable thromboembolic event resulting in a deep penetrator infarct on the right. I would start anticoagulation with Eliquis and add a statin given the current findings. Job ID: [id number]
--- NOTE | 2019-01-09 10:27 | DIS ---
DATE OF ADMISSION: 01/07/2019 DATE OF DISCHARGE: 01/08/2019 DISCHARGE DISPOSITION: [facility] for higher level of care. PRIMARY DISCHARGE DIAGNOSES: 1. Left acute CVA with left hemiparesis and right basal ganglia infarct. 2. Long-segment intracranial internal carotid artery narrowing, which is new when compared to November 2018. 3. History of cardiomyopathy with EF of around 20% based on echo done in October of 2018. 4. Chronic anemia. 5. Dyslipidemia. 6. AICD. 7. Noncompliance with medication. PROCEDURES DONE DURING HOSPITALIZATION: Chest x-ray, no acute findings. CT brain without contrast done showed evidence of subacute infarct involving the right basal ganglia. This appears to primarily involve lentiform nucleus probably, putamen and caudate on the right. There is no acute hemorrhage associated with this deep infarct. CT angio of the neck and brain showed large right basal ganglia infarct which appears unchanged when compared to prior CAT scan. The patient had severe luminal narrowing of right internal carotid artery. The intracranial portion of the right ICA shows significant luminal narrowing with most severe luminal narrowing in the cavernous and supraclinoid portions of the right ICA. There is occlusion of mid right M1, right ICA dissection has not ruled out, although a flap is not identified on the CT angio. Asymmetric arteritis is also a consideration. No evidence of stenosis of the origin of the arch vessels was seen. There is no beading of the vessels seen. The degree of right ICA stenosis appears to be 50% by NASCET criteria when compared to left ICA. Hemoglobin and hematocrit of 10 and 34, platelet count 191, white count of 13, MCV 81 with 74% neutrophils. PT/INR 17 and 1.5, PTT 28. D-dimer was 9.1. Lupus anticoagulant 0.8. Protein C 44, which is low. Protein S activity was 51. Antithrombin III functional assay was 69. Factor VIII activity was 326, which was high. Troponin I peaking up to 2.93. Total cholesterol 110, triglycerides 83, LDL 75. Serum test was negative. HDL was 18. CK- MB was 4.7. Albumin 3.3, BUN 15, creatinine 1.0, AST 84, ALT 128, total bilirubin 1.2, alkaline phosphatase 59, CK levels 150. DISCHARGE MEDICATIONS: 1. Aspirin 325 mg p.o. daily. 2. Ferrous sulfate 325 mg p.o. daily. 3. Atorvastatin 80 mg p.o. at bedtime. ALLERGIES: NO KNOWN DRUG ALLERGIES. INPATIENT CONSULT: Dr. Dennis for Cardiology, Dr. Contreras for Neurology. DISCHARGE PLAN: The patient is being discharged to [facility] NeuroSurgical service for possible intervention of right internal carotid artery due to long segment narrowing with possible suspicion for dissection. BRIEF COURSE DURING HOSPITALIZATION: The patient initially was brought to emergency room on with weakness on the left with left hemiparesis. There is also initial suspicion for facial droop . She has known history of cardiomyopathy with ejection fraction of around 20%. This was cardiomyopathy from last 5 years or so. She has been noncompliant with medications per prior records. In view of this history, the patient was admitted to stroke unit and CT angio of the head and neck done in view of her AICD not compatible with MRI. This showed long segment narrowing of right intracranial internal carotid artery when compared to a prior CT angio done in November of this year. On November 11 2018, CT angio was done for suspected incomplete hanging. The patient had come to emergency room with her attempting suicide by hanging, but the shower head apparently broke and was brought to emergency room. She was not hospitalized then. When compared to that CT angio, the current CT angio done shows significant narrowing of the right intracranial portion of the internal carotid artery with suspicions raised for possible dissection, although a flap was not identified. In view of her current symptoms , the decision was made to transfer the patient to higher level of care as there is no Interventional Neurosurgery in the hospital here. The patient has remained neurologically stable and is participating with PT and OT. She has had a troponin going up to 2, although the patient was asymptomatic. She has normal CK-MB levels. She was evaluated by Dr. Dennis during her brief stay here. She has been accepted to [facility] Neurosurgical Service for possible intervention on her right internal carotid artery. A total of 35 minutes was spent on discharge plan. I have given complete updates to the patient and mom at bedside. I have informed the patient and obtained her consent for transfer to [facility], which she is agreeable. Please see a [id number] documentation for the day of discharge on [facility]. Her CT angio findings were discussed with neuroradiologist in the hospital as well. Job ID: [id number] [facility]
== END 2019-01-08 21:42 | disposition short-term general hospital (02) | DRG 65 ==
LOC: ERS 16:46 → 2SE 20:02
PROVIDERS: ADMIT Internal Medicine; ATTEND Internal Medicine
DX: I63.231 Cerebral infarction due to unspecified occlusion or stenosis of right carotid arteries (principal); I42.9 Cardiomyopathy, unspecified; G81.94 Hemiplegia, unspecified affecting left nondominant side; F17.210 Nicotine dependence, cigarettes, uncomplicated; D72.829 Elevated white blood cell count, unspecified; E78.5 Hyperlipidemia, unspecified; D64.9 Anemia, unspecified; R29.810 Facial weakness; R40.2412 Glasgow coma scale score 13-15, at arrival to emergency department; Z90.89 Acquired absence of other organs; Z98.51 Tubal ligation status; Z95.810 Presence of automatic (implantable) cardiac defibrillator
CPT/HCPCS: 36415; 36416; 70450; 70496; 70498; 71045; 80053; 80061; 80500; 81240; 81241; 82550; 82553; 83090; 84484; 84703; 85025; 85240; 85300; 85303; 85305; 85307; 85379; 85598; 85610; 85611; 85613; 85730; 85732; 86038; 86147; 86225; 86850; 86900; 86901; 87070; 93005; 93010; 93306; J2270; J3010

== ENCOUNTER 2019-02-04 16:12 | Inpatient (IN) | payer MEDICAID ==
[2019-02-04] MEDS ORDERED: Aspirin Chewable 81 MG TAB ONE (16:25)
[2019-02-04] MEDS ORDERED: Ondansetron ODT 4 MG TAB ONE (16:30)
--- NOTE | 2019-02-04 16:42 | RAD ---
CHEST ONE VIEW: 02/04/19 HISTORY: Chest pain. COMPARISON: Chest radiograph 01/07/19. FINDINGS: Heart size is enlarged. Small effusions. Mild edema. Some mild peripheral linear opacity right lung base. IMPRESSION: 1. Cardiomegaly with mild pulmonary edema and small effusions. 2. Likely a focal area of atelectasis in the peripheral aspect of the right lung base. POS: CET
[2019-02-04 16:58] LABS: #Basophils 0.1 thou/uL (0.0-0.2); #Eosinphils 0.1 thou/uL (0.0-0.7); #Lymphocytes 2.9 thou/uL (1.20-3.40); #Monocytes 0.8 thou/uL (0.11-0.59); #Neutrophils 4.3 thou/uL (1.40-6.50); %Basophils 0.9 % (0.0-1.0); %Eosinophils 1.3 % (0.0-10.0); %Lymphocytes 35.7 % (21.0-51.0); %Monocytes 9.9 % (0.0-10.0); %Neutrophils 52.1 % (42.0-75.0); Hemoglobin 8.7 g/dL (12.0-16.0); Mean Corpuscular HGB CONC 29.6 g/dL (32.0-36.0); Mean Corpuscular Hemoglobin 22.9 pg (27.0-31.0); Mean Corpuscular Volume 77.3 fL (78.0-98.0); Mean Platelet Volume 10.6 fL (7.4-10.4); Platelet Count 274 thou/uL (130-400); RBC Distribution Width 18.9 % (11.5-14.5); Red Blood Cell (RBC) Count 3.82 mill/uL (4.20-5.40); White Blood Cell (WBC) Count 8.2 thou/uL (4.8-10.8)
[2019-02-04 17:09] LABS: ALT (SGPT) 51 U/L (8-55); AST (SGOT) 39 U/L (5-34); Albumin 4.1 g/dL (3.5-5.0); Alkaline Phosphatase 101 U/L (40-150); Anion Gap 19 mmol/L (10-20); BUN (Urea Nitrogen) 19 mg/dL (7.0-18.7); Bilirubin, Total 1.5 mg/dL (0.2-1.2); Calc. Creatinine Clearance 0 mL/min (70-130); Calcium 9.1 mg/dL (7.8-10.44); Carbon Dioxide 20 mmol/L (22-29); Chloride 101 mmol/L (98-107); Estimated GFR-MDRD 73; Globulin 3.5 g/dL (2.4-3.5); Glucose 102 mg/dL (70-105); Lipase 15 U/L (8-78); Potassium 4.6 mmol/L (3.5-5.1); Protein, Total 7.6 g/dL (6.0-8.3); Sodium 135 mmol/L (136-145)
[2019-02-04 17:12] LABS: Anisocytosis SLIGHT = 6-15 cells (100X) (0-5/hpf); Hypochromia SLIGHT = 6-15 cells (100X) (0-5/hpf); MDiff Complete? YES; Microcytosis SLIGHT = 6-15 cells (100X) (0-5/hpf); Ovalocytes SLIGHT = 2-5 cells (100X) (0-1/hpf); Platelet Morphology Comment Appears Adequate; Polychromasia SLIGHT = 2-3 cells (100X) (0-2/hpf); Target Cells SLIGHT = 2-5 cells (100X) (0-1/hpf)
[2019-02-04] MEDS ORDERED: Fentanyl 100 MCG/2 ML VIAL ONE (18:17)
--- NOTE | 2019-02-04 20:00 | PDOC.EVN ---
Event Note - Event Note Event Note: H&P dictated #[id number]
[2019-02-04] MEDS ORDERED: Acetaminophen 325 MG TAB PO PRN (20:06)
[2019-02-04] MEDS ORDERED: Acetaminophen 650 MG Suppository PR PRN (20:06)
[2019-02-04] MEDS ORDERED: Senokot S 8.6-50 MG TAB PO PRN (20:06)
[2019-02-04] MEDS ORDERED: Guaifenesin DM 100-10/5 ML UDCUP PO PRN (20:06)
[2019-02-04] MEDS ORDERED: Albuterol Sulfate 2.5 mg/3 ml Neb NEB PRN (20:06)
[2019-02-04] MEDS ORDERED: Ondansetron PF 4 MG/2 ML Vial IVP PRN (20:06)
[2019-02-04] MEDS ORDERED: Furosemide 40 MG/4 ML VIAL SLOW IVP SCH (20:15)
[2019-02-04] MEDS: Ondansetron ODT 4 MG TAB PO PRN (20:42)
[2019-02-04] MEDS: Apixaban 5 MG TAB PO SCH (20:42)
[2019-02-04] MEDS ORDERED: Famotidine 20 MG TAB PO SCH (21:00)
[2019-02-04] MEDS ORDERED: Atorvastatin Calcium 20 MG TAB PO SCH (21:00)
--- NOTE | 2019-02-04 21:14 | HP ---
PRIMARY CARE PHYSICIAN: [facility]. PRIMARY COMPUTATIONAL SCIENCES PROFESSOR: Viki Dennis MD CHIEF COMPLAINT: Chest pain and cough. HISTORY OF PRESENT ILLNESS: This is a 24-year-old female with a known history of severe cardiomyopathy with congestive heart failure, most recent ejection fraction of 10% to 15% at the beginning of this month, also with diastolic dysfunction and AICD in place. The patient was recently hospitalized here for an acute ischemic stroke, was transferred to [facility] in [place] for possible need for intervention on the right internal carotid artery, concerning for possible dissection. She was seen there, had an angiogram done, but no dissection was identified, and she had no further intervention done. She has had multiple CT angios negative for clots in the last 2 months and eventually at [facility] was put on Coumadin. She was released on Coumadin, however, she followed up with Dr. Dennis and he switched her to Eliquis, which she is taking twice a day now. The patient reports that she was discharged from [facility] about almost 2 weeks ago. She has had a persistent cough since then with some postnasal drip and a little bit of chest pain with cough. This was actually better in the hospital before she was discharged as they were giving her nebulizers twice a day and she has not had any breathing treatments since an outpatient and the cough got worse. Then, 2 days ago, she developed worsened cough productive of minimal sputum, occasionally little pink tinged, but mostly clear associated with constant chest pain for the last 2 days. She does say the pain is deep inside. It was worse with coughing, worse with deep breaths, and also noted to have some burning sensation that then spread throughout her body. She last night was coughing so much, she was vomiting as well and she has not held her medications down well since last night. No nausea or vomiting currently. She has not had any abdominal pain. No significant edema of her lower extremities. No fevers or chills. The patient was seen by Dr. Dennis's PA yesterday, had some lab and x-ray ordered. She was told to come to the emergency room if the symptoms got worse. Today, they got worse and she went to the ER. Here, she had a chest x-ray, which showed mild amount of pulmonary edema with cardiomegaly, but no infiltrates. She was noted to be tachycardic with borderline low blood pressures. She had a negative troponin, did have an elevated D-dimer, normal white blood cell count, stable anemia with a hemoglobin of 8.7, brain natriuretic peptide of 3,000, and normal renal function, so she is being put in observation for serial enzymes. PAST MEDICAL HISTORY: 1. cardiomyopathy with AICD, systolic and diastolic dysfunction. 2. History of paroxysmal atrial fibrillation. 3. Recent ischemic stroke with right internal carotid artery disease. 4. Chronic anemia. 5. Dyslipidemia. 6. History of medication noncompliance. PAST SURGICAL HISTORY: 1. Tonsillectomy. 2. Adenoidectomy. 3. Tubal ligation. 4. AICD placement. 5. Recent angiography. SOCIAL HISTORY: The patient has a history of smoking 3 to 5 cigarettes per day. No alcohol or illicit drug use. She lives with her mother and two children. Currently, gets around with a walker due to persistent instability after a stroke, though that is improving. FAMILY HISTORY: Negative for early heart problems or strokes or autoimmune diseases. ALLERGIES: NO KNOWN DRUG ALLERGIES. CURRENT MEDICATIONS: 1. Eliquis 5 mg twice a day. 2. Carvedilol 25 mg, uncertain if this is once or twice a day. 3. Ultram as needed. 4. Zofran as needed. 5. Lasix 20 mg daily. REVIEW OF SYSTEMS: CONSTITUTIONAL: No fevers. No chills. EYES: No double vision or blurred vision. ENT: See HPI. CARDIOVASCULAR: See HPI. No palpitations or racing heart. PULMONARY: See HPI. GASTROINTESTINAL: See HPI. No diarrhea or constipation. GENITOURINARY: No dysuria or hematuria. MUSCULOSKELETAL: No muscle aches or joint pains. SKIN: No rashes or other lesions she has noted. NEUROLOGIC: The patient has some persistent weakness in her left upper and lower extremities. This is much better and she is able to ambulate with increasing stability. PHYSICAL EXAMINATION: VITAL SIGNS: Blood pressure 107/83, pulse 108, respirations 20, O2 saturation 99% on room air, and temperature 98.4. GENERAL: This is a well-developed, thin female, in no acute distress. HEENT: Pupils are equal, round, and reactive to light. Oropharynx is clear without lesions, erythema, or exudate. NECK: Supple. No lymphadenopathy. No thyroid nodules or enlargement. No significant JVD. HEART: Regular rhythm. Mildly tachycardic. No murmurs, rubs, or gallops. LUNGS: Clear to auscultation bilaterally. No wheezes, crackles, or rhonchi. ABDOMEN: Soft. Nontender to palpation. Normoactive bowel sounds. No hepatosplenomegaly or other masses. EXTREMITIES: No clubbing, cyanosis, or edema. SKIN: No rashes or lesions noted. NEUROLOGIC: The patient has minimally decreased strength in left upper and lower extremity compared to right, not specifically noticeable given that she is right-handed. Intact reflexes in all extremities. No facial droop. PSYCHIATRIC: Alert and oriented x3. Normal mood and affect. LABORATORY DATA: CBC with a white blood cell count of 8.2, hemoglobin 8.7, which is down from 10.5 in her most recent check here before her transfer, hematocrit 29.5, platelet count 274. Coagulation profile shows an elevated D-dimer of 3. This has been chronically elevated for her. Complete metabolic panel is notable for a sodium of 135, carbon dioxide of 20, BUN of 19, total bilirubin of 1.5, and AST of 39. The rest is normal. Brain natriuretic peptide is elevated at 3559, which is higher than during previous admissions. Troponin is negative. EKG, I did review the EKG done in the emergency room. It shows sinus tachycardia with some rightward axis. No acute ST-segment changes. Chest x-ray, I did review the chest x-ray done in the emergency room along with the radiologist's report. It does show some cardiomegaly with mild pulmonary edema and small effusions and likely focal area of atelectasis in the peripheral aspect of the right lung base. ASSESSMENT: 1. Chest pain, likely related to her cough, does not appear cardiac in nature. She has a negative cardiac marker set x1 thus far. We will put the patient on commercial underwriter overnight and check serial enzymes. We will have Dr. Dennis consult in the morning. 2. Cough, possibly secondary to congestive heart failure versus allergies or bronchitis. We will give the patient cough medicine, and we will give her p.r.n. nebs. No evidence of bacterial infection at this time, so hold off any antibiotics, so we might consider doing an antibiotics for atypical infection should things progress. 3. History of previous stroke, possibly embolic given that she was started on Coumadin at [facility]. We will continue the patient on Eliquis. 4. Severe nonischemic cardiomyopathy with systolic and diastolic congestive heart failure. We will give the patient a dose of Lasix when she gets to the floor and then start her on IV Lasix once a day and see if this improves her symptoms. We will continue cardiac medicines once we get the definitive home med list whether it would be carvedilol or Entresto, which she was on previously. 5. Gastrointestinal prophylaxis. Put the patient on Pepcid twice a day. 6. Deep venous thrombosis prophylaxis. The patient is already on Eliquis. 7. Code status. I did discuss this with the patient. She is a full code. Should she be incapacitated, she states that her mother would be her medical decision maker. Her mother's name is Matias Johns. Job ID: [id number]
[2019-02-04] MEDS ORDERED: Melatonin 3 MG TAB PO PRN (23:57)
[2019-02-05] MEDS: traMADol HCl 50 MG TAB PO PRN (00:23)
[2019-02-05] MEDS ORDERED: Chloraseptic Spray 180 ml Bottle PO PRN (00:41)
[2019-02-05] MEDS ORDERED: diphenhydrAMINE 50 MG/ML VIAL IVP SCH (00:45)
--- NOTE | 2019-02-05 00:54 | PDOC.EVN ---
Event Note - Event Note Event Note: Notified by Ledia PAULSON, patient with dry heaving/regurgitation of meds. Patient states she has had complete dysphagia x 3 days, unable to tolerate any oral intake including medications, soft foods such as ice cream and liquids. She experiences coughing/regurgitation, followed by dry heaving. Denies any difficulty swallowing prior days. No recent weight loss. Denies any hematemesis. Recent CVA/TIA but normal swallow study. We will hold on PO meds. Famotidine converted to IV and chloramphenicol ordered. GI Consult requested. Per Dr. Miller will hold on Eliquis/Heparin. Further recommendations as per day team. NPO until cleared by GI.
[2019-02-05 05:17] LABS: #Eosinphils 0.1 thou/uL (0.0-0.7); #Monocytes 0.7 thou/uL (0.11-0.59); #Neutrophils 3.1 thou/uL (1.40-6.50); %Basophils 0.8 % (0.0-1.0); %Lymphocytes 33.8 % (21.0-51.0); %Neutrophils 51.4 % (42.0-75.0); Hemoglobin 7.9 g/dL (12.0-16.0); Mean Corpuscular HGB CONC 29.6 g/dL (32.0-36.0); Mean Corpuscular Hemoglobin 22.6 pg (27.0-31.0); Mean Corpuscular Volume 76.1 fL (78.0-98.0); Mean Platelet Volume 10.7 fL (7.4-10.4); Platelet Count 225 thou/uL (130-400); RBC Distribution Width 18.9 % (11.5-14.5); Red Blood Cell (RBC) Count 3.49 mill/uL (4.20-5.40)
[2019-02-05 05:30] LABS: Anion Gap 14 mmol/L (10-20); BUN (Urea Nitrogen) 20 mg/dL (7.0-18.7); Calc. Creatinine Clearance 63 mL/min (70-130); Calcium 8.6 mg/dL (7.8-10.44); Carbon Dioxide 20 mmol/L (22-29); Chloride 104 mmol/L (98-107); Estimated GFR-MDRD 65; Glucose 89 mg/dL (70-105); Magnesium 1.5 mg/dL (1.6-2.6); Phosphorus 4.7 mg/dL (2.3-4.7); Sodium 134 mmol/L (136-145)
[2019-02-05] MEDS ORDERED: traMADol HCl 50 MG TAB PO SCH (06:00)
[2019-02-05] MEDS ORDERED: Pantoprazole 40 MG VIAL IVP SCH (09:00)
[2019-02-05] MEDS ORDERED: Famotidine/PF 20 mg/2ml Vial SLOW IVP SCH (09:00)
--- NOTE | 2019-02-05 09:01 | EKG ---
Test Reason : Blood Pressure : / mmHG Vent. Rate : 111 BPM Atrial Rate : 111 BPM P-R Int : 146 ms QRS Dur : 068 ms QT Int : 346 ms P-R-T Axes : -11 120 021 degrees QTc Int : 470 ms Sinus tachycardia Right axis deviation Low voltage QRS Cannot rule out Anterior infarct , age undetermined Abnormal ECG No ST elevation/[place] Confirmed by SUSI ALBERT M.D. ([id number]), web editor ALESHA MENARD ([id number]) on 02/05/2019 9:00:26 AM Referred By: Confirmed By:SUSI ALBERT M.D.
[2019-02-05] MEDS: Apixaban 5 MG TAB PO SCH (09:24)
[2019-02-05] MEDS ORDERED: Magnesium 2 GM/50 ML 2 GM in Premix Bag 1 BAG IVPB SCH (09:30)
[2019-02-05] MEDS ORDERED: Magnesium Sulfate 2 GM in Sodium Chloride 0.9% 100 ML IVPB SCH (09:30)
[2019-02-05] MEDS: Furosemide 40 MG/4 ML VIAL SLOW IVP SCH (09:45)
[2019-02-05 10:17] LABS: Iron 19 ug/dL (50-170); Iron Binding Capacity, Total 429 mcg/dL (265-497)
[2019-02-05 10:49] LABS: Folate (Folic Acid) 11.7 ng/mL (7.0-31.4)
[2019-02-05] MEDS ORDERED: PROPOFOL 200 MG/20 ML VIAL ONE (10:50)
--- NOTE | 2019-02-05 14:21 | PDOC.PN ---
- Subjective Encounter Start Date: 02/05/19 Encounter Start Time: 14:19 Subjective: feels slightly better.continues to have dry heaves,heartburn and difficulty -: swollowing.on going for weeks.discussed w Mother-she reports med compliance - Objective Resuscitation Status - Order Detail: 02/04/19 19:26 Resuscitation Status Routine Resuscitation Status: FULL: Full Resuscitation Discussed with: Patient MAR Reviewed: Yes Vital Signs & Weight: Vital Signs (12 hours) Temp Pulse Resp BP BP Pulse Ox 02/05/19 11:19 98 F 103 H 16 109/73 98 02/05/19 08:02 97.7 F 103 H 18 109/71 100 02/05/19 04:16 98 F 104 H 20 95/65 100 Weight Weight 120 lb 14.4 oz I&O: 02/04/19 02/05/19 02/06/19 06:59 06:59 06:59 Intake Total 350 Output Total 2100 Balance -1750 Result Diagrams: 02/05/19 04:33 02/05/19 04:33 Additional Labs: Laboratory Tests 01/07/19 01/07/19 02/04/19 17:58 17:58 16:44 Hgb 10.5 L D-Dimer Creatinine 1.06 Troponin I B-Natriuretic Peptide 3559.3 H 02/04/19 02/04/19 02/04/19 16:44 16:44 16:44 Hgb 8.7 L D-Dimer Creatinine 1.10 Troponin I Less than 0.010 B-Natriuretic Peptide 02/04/19 02/04/19 02/04/19 19:04 20:19 23:09 Hgb D-Dimer 3.13 H Creatinine Troponin I Less than 0.010 0.021 B-Natriuretic Peptide 02/05/19 02/05/19 04:33 04:33 Hgb 7.9 L D-Dimer Creatinine 1.21 H Troponin I B-Natriuretic Peptide Radiology Reviewed by me: Yes Phys Exam - Physical Examination Constitutional: NAD HEENT: PERRLA, moist MMs, sclera anicteric, oral pharynx no lesions Neck: no nodes, no JVD, supple, full ROM Respiratory: no wheezing, no rales, no rhonchi, clear to auscultation bilateral Cardiovascular: RRR, no significant murmur, no rub Gastrointestinal: soft, non-tender, no distention, positive bowel sounds Musculoskeletal: pulses present, edema present Neurological: non-focal, normal sensation, moves all 4 limbs Psychiatric: normal affect, A&O x 3 Skin: no rash Dx/Plan (1) Acute on chronic combined systolic and diastolic congestive heart failure Code(s): I50.43 - ACUTE ON CHRONIC COMBINED SYSTOLIC AND DIASTOLIC HRT FAIL Status: Acute Comment: cont IV lasix w fluid restriction.Cardiology recs requested. (2) Chest pain Code(s): R07.9 - CHEST PAIN, UNSPECIFIED Status: Acute Comment: Likley due to GI causes.? Gastritis/espohagitis/PUD Change pepcid to protonicx IV. GI recs requested (3) Ischemic heart disease Code(s): I25.9 - CHRONIC ISCHEMIC HEART DISEASE, UNSPECIFIED Status: Chronic Comment: cont ASA,Statin and Coreg (4) Cardiomyopathy Code(s): I42.9 - CARDIOMYOPATHY, UNSPECIFIED Status: Chronic Comment: ef of 20% in 10/[address]. (5) Chronic anemia Code(s): D64.9 - ANEMIA, UNSPECIFIED Status: Chronic (6) Dyslipidemia Code(s): E78.5 - HYPERLIPIDEMIA, UNSPECIFIED Status: Chronic (7) History of automatic internal cardiac defibrillator (AICD) Code(s): TLQ7925 - Status: Chronic - Plan plan discussed w/ family, DVT proph w/SCDs Pt severly anemic. Iron low.will transfus eIV Iron. -: symptoms of CP and SOb can be due to anemia.Will likely need EGD -: Hold eliquis for now. GI recs requested. denies any BRB -IN or melena. -: check FOBT -: add PPI IV.DC pepcid * .cont diuresis.cardiology recs requested * am labs * replace Mag.Pt tachycardic.on coreg Review of Systems - Review of Systems Constitutional: weakness, malaise. negative: fever, chills, sweats, other Respiratory: SOB with Excertion. negative: Cough, Dry, Shortness of Breath, Hemoptysis, Pleuritic Pain, Sputum, Wheezing Cardiovascular: edema. negative: chest pain, palpitations, orthopnea, paroxysmal nocturnal dyspnea, light headedness, other Gastrointestinal: Nausea, Abdominal Pain Genitourinary: negative: Dysuria, Frequency, Incontinence, Hematuria, Retention , Other Musculoskeletal: negative: Neck Pain, Shoulder Pain, Arm Pain, Back Pain, Hand Pain, Leg Pain, Foot Pain, Other Neurological: negative: Weakness, Numbness, Incoordination, Change in Speech, Confusion, Seizures, Other - Medications/Allergies Allergies/Adverse Reactions: Allergies Allergy/AdvReac Type Severity Reaction Status Date / Time No Known Drug Allergies Allergy Verified 02/04/19 20:01 Medications: Current Medications Acetaminophen (Tylenol) 650 mg PO Q4H PRN PRN Reason: Headache/Fever/Mild Pain (1-3) Acetaminophen (Tylenol) 650 mg IN Q4H PRN PRN Reason: Headache/Fever/Mild Pain (1-3) Albuterol Sulfate (Ventolin) 2.5 mg NEB [id number] PRN PRN Reason: Wheezing Apixaban (Eliquis) 5 mg PO BID [facility] Last Admin: 02/05/19 09:24 Dose: Not Given Atorvastatin Calcium (Lipitor) 20 mg PO HS [facility] Last Admin: 02/04/19 20:42 Dose: 20 mg Atorvastatin Calcium (Lipitor) 80 mg PO HS [facility] Carvedilol (Coreg) 3.125 mg PO BID [facility] Diphenhydramine HCl (Benadryl) 25 mg IVP WILLCALL [facility] Furosemide (Lasix) 40 mg SLOW IVP DAILY [facility] Last Admin: 02/05/19 09:45 Dose: 40 mg Guaifenesin/Dextromethorphan (Robitussin Dm) 15 ml PO Q4H PRN PRN Reason: Cough Melatonin (Melatonin) 3 mg PO HS PRN PRN Reason: Insomnia Last Admin: 02/05/19 00:00 Dose: 3 mg Ondansetron HCl (Zofran Odt) 4 mg PO Q6H PRN PRN Reason: Nausea/Vomiting Last Admin: 02/04/19 20:42 Dose: 4 mg Ondansetron HCl (Zofran) 4 mg IVP Q6H PRN PRN Reason: Nausea/Vomiting Last Admin: 02/05/19 00:10 Dose: 4 mg Pantoprazole Sodium (Protonix) 40 mg IVP Q12H [facility] Last Admin: 02/05/19 09:45 Dose: 40 mg Phenol (Chloraseptic [place] 180 Ml Bot) 0 ml PO BIDPRN PRN PRN Reason: Sore Throat Senna/Docusate Sodium (Senokot S) 2 tab PO BID PRN PRN Reason: Constipation Sodium Chloride (Flush - Normal Saline) 10 ml IVF Q12HR [facility] Last Admin: 02/05/19 09:46 Dose: 10 ml Sodium Chloride (Flush - Normal Saline) 10 ml IVF PRN PRN PRN Reason: Saline Flush Tramadol HCl (Ultram) 50 mg PO Q6HR PRN PRN Reason: Pain Last Admin: 02/05/19 00:23 Dose: 50 mg
[2019-02-05] MEDS ORDERED: Midazolam HCl 2 mg/2 ml Vial ONE (15:25)
[2019-02-05] MEDS ORDERED: Ketamine 50 MG/ML (10ML VIAL) ONE (15:26)
--- NOTE | 2019-02-05 15:53 | CON ---
DATE OF CONSULTATION: 02/05/2019 CHIEF COMPLAINT: Difficulty swallowing. HISTORY OF PRESENT ILLNESS: Ms. Tapia is a 24-year-old woman with a history of cardiomyopathy since her first 6 years ago. She about 4 days ago started having mid substernal aching pain with swallowing. She has always had some difficulty swallowing pills and they can gag her and make her spit them back up, however, this is a different sensation. Food will go down and she is able to tolerate her saliva and secretions, but it is painful to swallow. She has not been taking any new antibiotics. She switched from Coumadin to Eliquis around a week ago. She has had no bloody vomitus. She for the last four days, though will swallow her food and gets down either to the lower substernal or level of her stomach. It is difficult for her to tell and then she vomits it back up. She has had no diarrhea, constipation, or fever associated with this. PAST MEDICAL HISTORY: cardiomyopathy status post AICD, history of paroxysmal atrial fibrillation, ischemic stroke admitted to the hospital in [place] 2 weeks ago with a stroke. She has since been on anticoagulation. Continued dyslipidemia. PAST SURGICAL HISTORY: Tonsillectomy, tubal ligation, AICD, and angiography. FAMILY HISTORY: Negative for GI malignancy. SOCIAL HISTORY: She does smoke a few cigarettes per day previously. No alcohol or drugs. ALLERGIES: NO KNOWN DRUG ALLERGIES. MEDICATIONS: Prior to admission: 1. Eliquis. 2. Carvedilol. 3. Ultram. 4. Zofran. 5. Lasix. Current inpatient medications include: 1. Eliquis on hold. 2. Atorvastatin. 3. Carvedilol. 4. Furosemide. 5. Pantoprazole 40 mg IV q.12 hours. Her last dose of Eliquis was last night. REVIEW OF SYSTEMS: Negative x10 systems reviewed except as stated in the history of present illness. PHYSICAL EXAMINATION: VITAL SIGNS: Temperature 98.0, pulse 103, and blood pressure 109/73. GENERAL: She is in no acute distress. Alert and oriented x3. HEENT: Eyes have no scleral icterus. Oropharynx is clear without lesions. No cervical or supraclavicular lymphadenopathy. LUNGS: Clear to auscultation bilaterally. HEART: Regular rate and rhythm without murmur. ABDOMEN: Soft. Mild tenderness in the epigastric region without guarding. Bowel sounds are present. EXTREMITIES: No lower extremity edema. She has left-sided weakness from recent stroke. LABORATORY DATA: White blood cell count 6.0, hemoglobin 7.9, platelets 225. Creatinine 1.21. Iron 19, TIBC 429. Bilirubin 1.5, AST 39, ALT 51, albumin 4.1, and lipase 15. BNP 3559. IMPRESSION: 1. Dysphagia and odynophagia. It is unclear if she could have foreign body or obstruction in the distal esophagus ongoing. Endoscopy will be required at this point. She could have pill esophagitis, reflux esophagitis, or reflux-induced stricture. 2. Cardiomyopathy, . She also had a recent ischemic stroke and has been on anticoagulation. Her last dose of Eliquis was last night. RECOMMENDATIONS: 1. We will plan EGD today. 2. Proton pump inhibitor IV twice daily. Job ID: [id number]
--- NOTE | 2019-02-05 16:27 | OP ---
DATE OF PROCEDURE: 02/05/2019 PROCEDURE PERFORMED: Esophagogastroduodenoscopy with biopsy. PREOPERATIVE DIAGNOSES: Odynophagia, dysphagia, and nausea and vomiting. DESCRIPTION OF PROCEDURE: Informed consent was obtained from the patient. She was sedated with total intravenous anesthesia. The bite block was placed and the endoscope was advanced easily to the second portion of the duodenum and retroflexion was performed in the stomach. The esophagus was normal. There was no fungal esophagitis or esophageal ulceration to explain her symptoms. The esophagus appeared normal. However, biopsies were obtained to rule out microscopic changes of the eosinophilic esophagitis. I expect these will be normal. The GE junction was normal. Retroflexed views in the stomach were normal. The stomach had diffuse erythematous gastritis. Biopsies were obtained from the antrum and body to rule out Helicobacter pylori. The pylorus and first and second portions of the duodenum were normal. Air was suctioned from the stomach and the procedure was completed. IMPRESSION: 1. Normal esophagus without ulceration or fungal esophagitis or explanation for her symptoms. Biopsies were obtained from the esophagus to rule out microscopic changes of eosinophilic esophagitis. 2. Diffuse erythematous gastritis. Biopsies obtained to rule out Helicobacter pylori. 3. Otherwise normal esophagogastroduodenoscopy. RECOMMENDATIONS: 1. Await histopathology. 2. Proton pump inhibitor twice daily orally. 3. Advance diet. Job ID: [id number]
--- NOTE | 2019-02-05 17:58 | PRG ---
DATE OF SERVICE: 02/05/2019 SUBJECTIVE: Ms. Tapia was admitted to the hospital with inability to eat and some vomiting some blood. She underwent endoscopy today, sinus, gastritis. The patient has a history of cardiomyopathy, unfortunately has been noncompliant with medicines in the past. OBJECTIVE: VITAL SIGNS: Her blood pressure is 104/73, pulse is 65 and regular. LUNGS: Clear. CARDIAC: Normal S1, normal S2. ABDOMEN: Soft, nontender. EXTREMITIES: There are no edema. DIAGNOSTIC DATA: Chest x-ray shows cardiomegaly with no congestion. LABORATORY DATA: Hemoglobin is down to 7.9. BNP 3559. Iron level is low at 19, ferritin has also been low on previous admissions. ASSESSMENT: 1. Iron deficiency anemia. 2. Cardiomyopathy, severe. 3. History of noncompliance. 4. Recent gastrointestinal bleeding. PLAN: 1. Resume anticoagulation when feasible. She was thought to have a probable recent embolic stroke after being transferred to [facility] recently. 2. Resume Entresto. 3. Low-dose carvedilol. 4. We will give her intravenous iron here. Job ID: [id number]
[2019-02-05] MEDS: Atorvastatin Calcium 40 MG TAB PO SCH (21:20)
[2019-02-05] MEDS: Ondansetron ODT 4 MG TAB PO PRN (21:29)
[2019-02-05] MEDS: Iron, Sodium Ferric Gluconate 250 MG in Sodium Chloride 0.9% 100 ML IVPB SCH (22:04)
[2019-02-05] MEDS: Carvedilol 3.125 MG TAB PO SCH (22:09)
[2019-02-06 06:19] LABS: #Eosinphils 0.1 thou/uL (0.0-0.7); #Lymphocytes 2.1 thou/uL (1.20-3.40); #Monocytes 0.7 thou/uL (0.11-0.59); #Neutrophils 3.1 thou/uL (1.40-6.50); %Basophils 0.6 % (0.0-1.0); %Eosinophils 1.1 % (0.0-10.0); %Lymphocytes 35.4 % (21.0-51.0); %Monocytes 11.2 % (0.0-10.0); %Neutrophils 51.7 % (42.0-75.0); Hemoglobin 7.3 g/dL (12.0-16.0); Mean Corpuscular HGB CONC 30.3 g/dL (32.0-36.0); Mean Corpuscular Hemoglobin 23.6 pg (27.0-31.0); Mean Corpuscular Volume 77.8 fL (78.0-98.0); Mean Platelet Volume 11.4 fL (7.4-10.4); Platelet Count 195 thou/uL (130-400); RBC Distribution Width 19.1 % (11.5-14.5)
[2019-02-06 06:46] LABS: Anion Gap 13 mmol/L (10-20); BUN (Urea Nitrogen) 20 mg/dL (7.0-18.7); Calc. Creatinine Clearance 72 mL/min (70-130); Calcium 8.6 mg/dL (7.8-10.44); Carbon Dioxide 23 mmol/L (22-29); Chloride 101 mmol/L (98-107); Estimated GFR-MDRD 79; Glucose 85 mg/dL (70-105); Potassium 3.4 mmol/L (3.5-5.1); Sodium 134 mmol/L (136-145)
[2019-02-06] MEDS ORDERED: Potassium Chloride 20 MEQ TAB PO SCH ×2 (09:00→12:00)
[2019-02-06] MEDS ORDERED: Apixaban 5 MG TAB PO SCH (09:00)
--- NOTE | 2019-02-06 11:12 | PRG ---
DATE OF SERVICE: 02/06/2019 SUBJECTIVE: Ms. Tapia is feeling much better. She is eating solid food without any problems. She has no further odynophagia or dysphagia. She has had no bloody bowel movements or abdominal pain. PHYSICAL EXAMINATION: VITAL SIGNS: Temperature 98.2, pulse 104, and blood pressure 94/61. GENERAL: She is in no acute distress. Alert and oriented x3. LUNGS: Clear to auscultation bilaterally. HEART: Regular rate and rhythm without murmur. ABDOMEN: Soft, nontender, and nondistended. Bowel sounds are present. EXTREMITIES: No lower extremity edema. LABORATORY DATA: White blood cell count 6.0, hemoglobin 7.3, and platelets 195. Creatinine 1.02. IMPRESSION: 1. Odynophagia and dysphagia. Her symptoms are currently resolved today. Her esophagus appeared normal by endoscopy yesterday. Biopsies are pending. 2. Nonerosive gastritis. She did have diffuse erythematous gastritis, which may have contributed to her symptoms along with acid reflux. She has been started on proton pump inhibitor and her symptoms have improved. Gastric biopsies for Helicobacter pylori are pending. 3. Iron-deficiency anemia. No overt GI bleeding has been seen. No GI bleeding source identified by endoscopy. She has been on anticoagulation and the iron-deficiency anemia could be from menstrual blood loss. We will see how she responds to IV iron supplementation and lower endoscopy could be considered in the future if she fails to respond to iron supplementation. RECOMMENDATIONS: 1. Proton pump inhibitor daily. 2. Iron supplementation. 3. Follow up in GI clinic in a month. 4. Await histopathology. We will treat H pylori if this comes back positive. 5. Anticipate discharge home today. I will sign off. Please call if GI can be of assistance. Job ID: [id number]
[2019-02-06] MEDS: Furosemide 40 MG/4 ML VIAL SLOW IVP SCH (11:19)
[2019-02-06] MEDS: Potassium Chloride 20 MEQ TAB PO SCH ×2 (11:19→14:32)
[2019-02-06] MEDS: Iron, Sodium Ferric Gluconate 250 MG in Sodium Chloride 0.9% 100 ML IVPB SCH (11:19)
[2019-02-06] MEDS: Carvedilol 3.125 MG TAB PO SCH ×2 (11:20→20:28)
[2019-02-06] MEDS: Ondansetron ODT 4 MG TAB PO PRN (14:43)
--- NOTE | 2019-02-06 15:37 | PDOC.CTH ---
Cardiology Progress Note - Subjective No new issues. Doing well. - Objective Vital Signs Temp Pulse Resp BP Pulse Ox 02/06/19 15:07 97.7 F 107 H 20 95/61 100 02/06/19 11:55 97.5 F L 104 H 12 98/57 L 100 02/06/19 07:52 98.2 F 104 H 14 94/61 100 Admit Weight 124 lb 3.2 oz Weight 119 lb 12.8 oz 02/05/19 02/06/19 02/07/19 06:59 06:59 06:59 Intake Total 350 600 Output Total 2100 350 450 Balance -1750 250 -450 - Physical Examination General/Neuro: alert & oriented x3, NAD Neck: no JVD present Lungs: CTA, unlabored respirations Heart: RRR Abdomen: NT/ND Extremities: other: (no edema) - Telemetry Telemetry Rhythm: NSR - Labs Result Diagrams: 02/06/19 04:58 02/06/19 04:58 Troponin/CKMB Troponin I 0.021 ng/mL (< 0.028) 02/04/19 23:09 - Assessment/Plan 1. Iron deficiency anemia 2. Severe dilated CM 3. Non compliance 4. Recent GI bleeding PLAN: - Continue CHF meds. - Full anticoagulation when safe from bleeding perspective.
--- NOTE | 2019-02-06 16:42 | PDOC.PN ---
- Subjective Encounter Start Date: 02/06/19 Encounter Start Time: 09:45 Subjective: pt up in bed no complains - Objective Resuscitation Status - Order Detail: 02/04/19 19:26 Resuscitation Status Routine Resuscitation Status: FULL: Full Resuscitation Discussed with: Patient Vital Signs & Weight: Vital Signs (12 hours) Temp Pulse Resp BP Pulse Ox 02/06/19 15:07 97.7 F 107 H 20 95/61 100 02/06/19 11:55 97.5 F L 104 H 12 98/57 L 100 02/06/19 07:52 98.2 F 104 H 14 94/61 100 Weight Admit Weight 124 lb 3.2 oz Weight 119 lb 12.8 oz I&O: 02/05/19 02/06/19 02/07/19 06:59 06:59 06:59 Intake Total 350 600 Output Total 2100 350 450 Balance -1750 250 -450 Result Diagrams: 02/06/19 04:58 02/06/19 04:58 Phys Exam - Physical Examination Neck: no nodes, no JVD, supple, full ROM Respiratory: no wheezing, no rales, no rhonchi, wheezing present, clear to auscultation bilateral Cardiovascular: RRR, no significant murmur, no rub, gallop, irregular Gastrointestinal: soft, non-tender, no distention, positive bowel sounds Dx/Plan (1) Acute on chronic combined systolic and diastolic congestive heart failure Code(s): I50.43 - ACUTE ON CHRONIC COMBINED SYSTOLIC AND DIASTOLIC HRT FAIL Status: Acute Comment: cont IV lasix w fluid restriction.Cardiology recs requested. (2) Chronic anemia Code(s): D64.9 - ANEMIA, UNSPECIFIED Status: Chronic (3) Dyslipidemia Code(s): E78.5 - HYPERLIPIDEMIA, UNSPECIFIED Status: Chronic - Plan pt's hh low, she is on her menstrual cycle -: pt does not want blood transfusion, will continue iv iron -: will replace electrolytes * . Review of Systems - Review of Systems Respiratory: negative: Cough, Dry, Shortness of Breath, Hemoptysis, SOB with Excertion, Pleuritic Pain, Sputum, Wheezing Cardiovascular: negative: chest pain, palpitations, orthopnea, paroxysmal nocturnal dyspnea, edema, light headedness, other Gastrointestinal: negative: Nausea, Vomiting, Abdominal Pain, Diarrhea, Constipation, Melena, Hematochezia, Other - Medications/Allergies Allergies/Adverse Reactions: Allergies Allergy/AdvReac Type Severity Reaction Status Date / Time No Known Drug Allergies Allergy Verified 02/04/19 20:01 Medications: Current Medications Acetaminophen (Tylenol) 650 mg PO Q4H PRN PRN Reason: Headache/Fever/Mild Pain (1-3) Acetaminophen (Tylenol) 650 mg AR Q4H PRN PRN Reason: Headache/Fever/Mild Pain (1-3) Albuterol Sulfate (Ventolin) 2.5 mg NEB [id number] PRN PRN Reason: Wheezing Apixaban (Eliquis) 5 mg PO BID [facility] Atorvastatin Calcium (Lipitor) 80 mg PO HS [facility] Last Admin: 02/05/19 21:20 Dose: 80 mg Carvedilol (Coreg) 3.125 mg PO BID [facility] Last Admin: 02/06/19 11:20 Dose: Not Given Diphenhydramine HCl (Benadryl) 25 mg IVP WILLCALL [facility] Ferrous Gluconate (Fergon) 324 mg PO QAM-[facility] Furosemide (Lasix) 40 mg SLOW IVP DAILY [facility] Last Admin: 02/06/19 11:19 Dose: 40 mg Guaifenesin/Dextromethorphan (Robitussin Dm) 15 ml PO Q4H PRN PRN Reason: Cough Melatonin (Melatonin) 3 mg PO HS PRN PRN Reason: Insomnia Last Admin: 02/05/19 00:00 Dose: 3 mg Ondansetron HCl (Zofran Odt) 4 mg PO Q6H PRN PRN Reason: Nausea/Vomiting Last Admin: 02/06/19 14:43 Dose: 4 mg Ondansetron HCl (Zofran) 4 mg IVP Q6H PRN PRN Reason: Nausea/Vomiting Last Admin: 02/05/19 00:10 Dose: 4 mg Pantoprazole Sodium (Protonix) 40 mg PO DAILY [facility] Phenol (Chloraseptic [place] 180 Ml Bot) 0 ml PO BIDPRN PRN PRN Reason: Sore Throat Potassium Chloride (Klor-Con) 40 meq PO Q3H [facility] Stop: 02/06/19 17:01 Last Admin: 02/06/19 16:30 Dose: 40 meq Sacubitril/Valsartan (Entresto 24 Mg-26 Mg Tablet) 1 tab PO BID [facility] Last Admin: 02/06/19 11:20 Dose: Not Given Senna/Docusate Sodium (Senokot S) 2 tab PO BID PRN PRN Reason: Constipation Last Admin: 02/06/19 14:41 Dose: 2 tab Sodium Chloride (Flush - Normal Saline) 10 ml IVF Q12HR [facility] Last Admin: 02/06/19 11:19 Dose: 10 ml Sodium Chloride (Flush - Normal Saline) 10 ml IVF PRN PRN PRN Reason: Saline Flush Tramadol HCl (Ultram) 50 mg PO Q6HR PRN PRN Reason: Pain Last Admin: 02/05/19 00:23 Dose: 50 mg
[2019-02-06] MEDS: Atorvastatin Calcium 40 MG TAB PO SCH (20:28)
[2019-02-06] MEDS: Apixaban 5 MG TAB PO SCH (20:29)
[2019-02-07] MEDS: traMADol HCl 50 MG TAB PO PRN (03:28)
[2019-02-07] MEDS: Carvedilol 3.125 MG TAB PO SCH ×2 (07:53→20:38)
[2019-02-07] MEDS: Furosemide 40 MG/4 ML VIAL SLOW IVP SCH (09:41)
[2019-02-07] MEDS: Ferrous Gluconate 324 MG TAB PO SCH (09:41)
[2019-02-07] MEDS: Apixaban 5 MG TAB PO SCH ×2 (09:41→20:36)
[2019-02-07 10:44] LABS: Anion Gap 15 mmol/L (10-20); BUN (Urea Nitrogen) 16 mg/dL (7.0-18.7); Calc. Creatinine Clearance 72 mL/min (70-130); Calcium 9.5 mg/dL (7.8-10.44); Carbon Dioxide 25 mmol/L (22-29); Chloride 98 mmol/L (98-107); Estimated GFR-MDRD 77; Glucose 93 mg/dL (70-105); Magnesium 1.6 mg/dL (1.6-2.6); Sodium 135 mmol/L (136-145)
[2019-02-07 11:03] LABS: Potassium 2.9 mmol/L (3.5-5.1)
[2019-02-07] MEDS ORDERED: Potassium Chloride 10 MEQ TAB PO SCH (11:13)
[2019-02-07] MEDS ORDERED: Magnesium Sulfate 3 GM in Sodium Chloride 0.9% 100 ML IVPB SCH (11:15)
[2019-02-07] MEDS ORDERED: Potassium Chloride 20 MEQ in Premix Bag 1 BAG IVPB SCH (11:30)
[2019-02-07] MEDS: Potassium Chloride 20 MEQ TAB PO SCH ×2 (11:59→17:11)
--- NOTE | 2019-02-07 12:52 | PDOC.PN ---
- Subjective Encounter Start Date: 02/07/19 Encounter Start Time: 10:15 Subjective: pt up in bed no complains -: pt ate [place] - Objective Resuscitation Status - Order Detail: 02/04/19 19:26 Resuscitation Status Routine Resuscitation Status: FULL: Full Resuscitation Discussed with: Patient Vital Signs & Weight: Vital Signs (12 hours) Temp Pulse Resp BP Pulse Ox 02/07/19 11:57 97.6 F 92 14 98/59 L 100 02/07/19 08:00 99 02/07/19 07:38 97.6 F 83 13 103/59 L 99 02/07/19 04:00 98 F 93 18 104/66 98 Weight Admit Weight 124 lb 3.2 oz Weight 124 lb I&O: 02/06/19 02/07/19 02/08/19 06:59 06:59 06:59 Intake Total 600 1570 Output Total 350 2100 Balance 250 -530 Result Diagrams: 02/06/19 04:58 02/07/19 09:44 Phys Exam - Physical Examination Neck: no nodes, no JVD, supple, full ROM Respiratory: no wheezing, no rales, no rhonchi, wheezing present, clear to auscultation bilateral Cardiovascular: RRR, no significant murmur, no rub, gallop, irregular Gastrointestinal: soft, non-tender, no distention, positive bowel sounds Dx/Plan (1) Acute on chronic combined systolic and diastolic congestive heart failure Code(s): I50.43 - ACUTE ON CHRONIC COMBINED SYSTOLIC AND DIASTOLIC HRT FAIL Status: Acute Comment: cont IV lasix w fluid restriction.Cardiology recs requested. (2) Chronic anemia Code(s): D64.9 - ANEMIA, UNSPECIFIED Status: Chronic (3) Dyslipidemia Code(s): E78.5 - HYPERLIPIDEMIA, UNSPECIFIED Status: Chronic - Plan pt had 20beats of vtach today -: she was not symptomatic, will replace electrolytes -: educated pt not to eat outside food * . Review of Systems - Review of Systems Respiratory: negative: Cough, Dry, Shortness of Breath, Hemoptysis, SOB with Excertion, Pleuritic Pain, Sputum, Wheezing Cardiovascular: negative: chest pain, palpitations, orthopnea, paroxysmal nocturnal dyspnea, edema, light headedness, other Gastrointestinal: negative: Nausea, Vomiting, Abdominal Pain, Diarrhea, Constipation, Melena, Hematochezia, Other - Medications/Allergies Allergies/Adverse Reactions: Allergies Allergy/AdvReac Type Severity Reaction Status Date / Time No Known Drug Allergies Allergy Verified 02/04/19 20:01 Medications: Current Medications Acetaminophen (Tylenol) 650 mg PO Q4H PRN PRN Reason: Headache/Fever/Mild Pain (1-3) Acetaminophen (Tylenol) 650 mg DE Q4H PRN PRN Reason: Headache/Fever/Mild Pain (1-3) Albuterol Sulfate (Ventolin) 2.5 mg NEB [id number] PRN PRN Reason: Wheezing Apixaban (Eliquis) 5 mg PO BID [facility] Last Admin: 02/07/19 09:41 Dose: 5 mg Atorvastatin Calcium (Lipitor) 80 mg PO HS [facility] Last Admin: 02/06/19 20:28 Dose: 80 mg Carvedilol (Coreg) 3.125 mg PO BID [facility] Last Admin: 02/07/19 07:53 Dose: Not Given Diphenhydramine HCl (Benadryl) 25 mg IVP WILLCALL [facility] Ferrous Gluconate (Fergon) 324 mg PO QAM-[facility] Last Admin: 02/07/19 09:41 Dose: 324 mg Furosemide (Lasix) 20 mg SLOW IVP DAILY [facility] Last Admin: 02/07/19 09:41 Dose: 20 mg Guaifenesin/Dextromethorphan (Robitussin Dm) 15 ml PO Q4H PRN PRN Reason: Cough Magnesium Sulfate 3 gm/ Sodium (Chloride) 106 mls @ 100 mls/hr IVPB 1115 [facility] Stop: 02/07/19 14:00 Last Admin: 02/07/19 11:59 Dose: 106 mls Potassium Chloride 20 meq/ (Device) 100 mls @ 50 mls/hr IVPB NOW [facility] Stop: 02/07/19 14:00 Last Admin: 02/07/19 12:00 Dose: 100 mls Magnesium Chloride (Slow-Mag) 64 mg PO BID [facility] Melatonin (Melatonin) 3 mg PO HS PRN PRN Reason: Insomnia Last Admin: 02/05/19 00:00 Dose: 3 mg Ondansetron HCl (Zofran Odt) 4 mg PO Q6H PRN PRN Reason: Nausea/Vomiting Last Admin: 02/06/19 14:43 Dose: 4 mg Ondansetron HCl (Zofran) 4 mg IVP Q6H PRN PRN Reason: Nausea/Vomiting Last Admin: 02/05/19 00:10 Dose: 4 mg Pantoprazole Sodium (Protonix) 40 mg PO DAILY [facility] Last Admin: 02/07/19 09:42 Dose: 40 mg Phenol (Chloraseptic [place] 180 Ml Bot) 0 ml PO BIDPRN PRN PRN Reason: Sore Throat Potassium Chloride (K-Dur) 40 meq PO 1200,1700 [facility] Stop: 02/07/19 17:01 Last Admin: 02/07/19 11:59 Dose: 40 meq Sacubitril/Valsartan (Entresto 24 Mg-26 Mg Tablet) 1 tab PO BID [facility] Last Admin: 02/07/19 09:42 Dose: 1 tab Senna/Docusate Sodium (Senokot S) 2 tab PO BID PRN PRN Reason: Constipation Last Admin: 02/06/19 14:41 Dose: 2 tab Sodium Chloride (Flush - Normal Saline) 10 ml IVF Q12HR [facility] Last Admin: 02/07/19 09:42 Dose: 10 ml Sodium Chloride (Flush - Normal Saline) 10 ml IVF PRN PRN PRN Reason: Saline Flush Tramadol HCl (Ultram) 50 mg PO Q6HR PRN PRN Reason: Pain Last Admin: 02/07/19 03:28 Dose: 50 mg
[2019-02-07] MEDS: Atorvastatin Calcium 40 MG TAB PO SCH (20:36)
[2019-02-07] MEDS: Magnesium Chloride 64 MG TAB PO SCH (20:38)
[2019-02-08 05:45] LABS: #Eosinphils 0.1 thou/uL (0.0-0.7); #Lymphocytes 2.2 thou/uL (1.20-3.40); #Monocytes 0.7 thou/uL (0.11-0.59); #Neutrophils 2.8 thou/uL (1.40-6.50); %Basophils 0.7 % (0.0-1.0); %Eosinophils 1.5 % (0.0-10.0); %Lymphocytes 37.8 % (21.0-51.0); %Neutrophils 47.9 % (42.0-75.0); Hemoglobin 7.8 g/dL (12.0-16.0); Mean Corpuscular HGB CONC 29.5 g/dL (32.0-36.0); Mean Corpuscular Volume 78.1 fL (78.0-98.0); Mean Platelet Volume 11.9 fL (7.4-10.4); Platelet Count 208 thou/uL (130-400); RBC Distribution Width 19.8 % (11.5-14.5); Red Blood Cell (RBC) Count 3.39 mill/uL (4.20-5.40); White Blood Cell (WBC) Count 5.8 thou/uL (4.8-10.8)
[2019-02-08 06:03] LABS: Anion Gap 13 mmol/L (10-20); BUN (Urea Nitrogen) 16 mg/dL (7.0-18.7); Calc. Creatinine Clearance 78 mL/min (70-130); Carbon Dioxide 23 mmol/L (22-29); Chloride 101 mmol/L (98-107); Estimated GFR-MDRD 84; Glucose 88 mg/dL (70-105); Potassium 3.9 mmol/L (3.5-5.1); Sodium 133 mmol/L (136-145)
[2019-02-08 06:20] VITALS: BMI 21.2
[2019-02-08 08:55] VITALS: TEMP 97.4
[2019-02-08] MEDS: Furosemide 40 MG/4 ML VIAL SLOW IVP SCH ×2 (08:58→09:04)
[2019-02-08] MEDS: Apixaban 5 MG TAB PO SCH (08:58)
[2019-02-08] MEDS: Magnesium Chloride 64 MG TAB PO SCH (08:58)
[2019-02-08] MEDS: Ferrous Gluconate 324 MG TAB PO SCH (08:58)
[2019-02-08] MEDS: Carvedilol 3.125 MG TAB PO SCH ×2 (08:58→09:04)
--- NOTE | 2019-02-08 09:58 | PRG ---
DATE OF SERVICE: 02/08/2019 SUBJECTIVE: Ms. Tapia is doing okay. No shortness of breath or chest pain. She said her body hurts all over, but no localized discomfort. OBJECTIVE: VITAL SIGNS: Blood pressure 95/60, pulse 94 and it is regular. LUNGS: Clear. CARDIAC: Normal S1, normal S2. ABDOMEN: Soft and nontender. EXTREMITIES: No edema. The patient is back on anticoagulation as well. ASSESSMENT: 1. Severe cardiomyopathy. 2. History of noncompliance. 3. Recent gastrointestinal bleed. 4. Recent what appears to be embolic stroke from reading the notes from [facility] in [place]. PLAN: 1. Okay with me to go home. 2. Reduce atorvastatin back to 20 mg a day. There is no evidence of any atherosclerosis. 3. Change to oral furosemide. 4. The patient can be released home from my standpoint on Entresto twice a day, carvedilol 3.125 mg twice a day, furosemide 20 mg a day. Job ID: [id number]
[2019-02-08 16:31] VITALS: BP 94/52
--- NOTE | 2019-02-08 16:57 | DIS ---
DATE OF ADMISSION: 02/04/2019 DATE OF DISCHARGE: 02/08/2019 DISCHARGE DIAGNOSES: As of the following; 1. Acute on chronic systolic and diastolic heart failure. 2. Chronic anemia. 3. Dyslipidemia. 4. Cough and chest pain. HOSPITAL COURSE: The patient is a 24-year-old female, who initially presented to the hospital on 02/04 with complaints of chest pain and cough. Her cardiac markers were negative. Cardiology was consulted. Her cough was attributed initially, possibly secondary to heart failure versus allergies versus bronchitis. The patient at this time was seen by GI for having dysphagia. She did undergo an EGD and was initially put on IV Protonix. Her upper endoscopy indicated normal esophagus without any ulceration or fungal esophagitis that will explain her symptoms. Biopsies were done. She had diffuse erythematous gastritis, and biopsy was done to rule out Helicobacter pylori. The patient continued to tolerate her meals without any difficulty. She was also seen by Cardiology, was initially put on IV diuretics due to her elevated BNP. She was also found to be severely anemic, and she did have microcytic anemia from iron deficiency, and she was also on her menstrual cycle. I did entertain the topic of possible giving a pint of blood to make her feel better since she has been complaining of feeling tired. However, she stated that she did not want blood transfusion. We did give her about three doses of IV iron and put her on oral iron. I did discuss the importance of stool softeners when she is on the oral iron. While she was in the hospital, I have educated her multiple times in regard to healthy diet, and she did order [employer] and had spaghetti and meatballs from [employer]. I did emphasize the fact that she has severe systolic heart failure with the EF of 10% to 15% that would not be the best option for her. The patient's potassium and electrolytes were also abnormal, those were replaced. She did have about 20 beats of ventricular tachycardia. She does have an AICD. The patient currently is stable. She wants to go home. I will discharge her. MEDICATIONS: She is going to be on, 1. Eliquis 5 mg daily. 2. Aspirin 81 mg daily. 3. Iron 324 daily. 4. Magnesium 64 mg daily. 5. Potassium 20 mEq daily. 6. Entresto 1 tab p.o. daily. 7. Atorvastatin 80 mg daily. 8. Carvedilol 3.125 p.o. daily. 9. Lasix 20 mg daily. 10. Tramadol 50 mg q.6 hours p.r.n. PHYSICAL EXAMINATION: VITAL SIGNS: 97.4, 94, 16, 98% on room air, 95/60. GENERAL: She is awake, alert, and oriented x3. Does not appear in distress. CV: S1 and S2 present. No murmurs, rubs, or gallops. ABDOMEN: Soft and nontender. Bowel sounds are present x2. FOLLOWUP: Again, she will follow up with her Primary and Cardiology and also she will follow up with GI for her biopsy results, and also her atorvastatin has been cut back to 20 mg, and she will follow up with Cardiology. Job ID: [id number]
[2019-02-08] MEDS ORDERED: Carvedilol 3.125 MG TAB PO SCH (21:00)
[2019-02-08] MEDS ORDERED: Atorvastatin Calcium 20 MG TAB PO SCH (21:00)
[2019-02-09] MEDS ORDERED: Furosemide 40 MG/4 ML VIAL SLOW IVP SCH (09:00)
== END 2019-02-08 16:19 | disposition home or self-care (01) | DRG 292 ==
LOC: ERS 16:12 → 2SW 19:50 → OBSVTOIN 19:50 → 2NO 02-06 19:42
PROVIDERS: ADMIT Emergency Medicine; ATTEND Emergency Medicine
PROC: 0DB58ZX Excision of Esophagus, Via Natural or Artificial Opening Endoscopic, Diagnostic (ICD-10-PCS; principal; 2019-02-05)
PROC: 0DB78ZX Excision of Stomach, Pylorus, Via Natural or Artificial Opening Endoscopic, Diagnostic (ICD-10-PCS; 2019-02-05)
DX: I11.0 Hypertensive heart disease with heart failure (principal); I47.2 Ventricular tachycardia; I50.43 Acute on chronic combined systolic (congestive) and diastolic (congestive) heart failure; E78.5 Hyperlipidemia, unspecified; I48.0 Paroxysmal atrial fibrillation; F17.210 Nicotine dependence, cigarettes, uncomplicated; K29.70 Gastritis, unspecified, without bleeding; D50.9 Iron deficiency anemia, unspecified; I42.0 Dilated cardiomyopathy; Z79.82 Long term (current) use of aspirin; Z79.01 Long term (current) use of anticoagulants; Z79.899 Other long term (current) drug therapy; Z86.73 Personal history of transient ischemic attack (TIA), and cerebral infarction without residual deficits; Z95.810 Presence of automatic (implantable) cardiac defibrillator; Z98.51 Tubal ligation status; Z91.14 Patient's other noncompliance with medication regimen
CPT/HCPCS: 36415; 71045; 80048; 80053; 82607; 82746; 83540; 83550; 83690; 83735; 83880; 84100; 84484; 85025; 85379; 88305; 88312; 88313; 93005; 93798; 96361; 96374; C9113; J1940; J2250; J2405; J2916; J3010; J3475; J3480; J3490; Q0162; S0028

== ENCOUNTER 2019-02-16 23:21 | Inpatient (IN) | payer MEDICAID ==
[2019-02-16] MEDS ORDERED: Pantoprazole 40 MG VIAL ONE (23:41)
--- NOTE | 2019-02-17 00:03 | RAD ---
PORTABLE CHEST ONE VIEW: 02/16/2019 11:50 p.m. HISTORY: Chest pain. COMPARISON: 02/04/2019 FINDINGS: The left-sided AICD remains in place. The heart is enlarged. The lungs are well expanded without lo bar consolidation, pneumothoraces, adam pulmonary edema, or pleural effusions. POS: [facility]
[2019-02-17 00:05] LABS: Hemoglobin 9.6 g/dL (12.0-16.0); Mean Corpuscular Hemoglobin 23.9 pg (27.0-31.0); Mean Corpuscular Volume 82.4 fL (78.0-98.0); Platelet Count 190 thou/uL (130-400); RBC Distribution Width 23.6 % (11.5-14.5); White Blood Cell (WBC) Count 7.8 thou/uL (4.8-10.8)
[2019-02-17 00:22] LABS: ALT (SGPT) 20 U/L (8-55); AST (SGOT) 23 U/L (5-34); Albumin 3.7 g/dL (3.5-5.0); Alkaline Phosphatase 78 U/L (40-150); Anion Gap 14 mmol/L (10-20); BUN (Urea Nitrogen) 15 mg/dL (7.0-18.7); Bilirubin, Total 1.4 mg/dL (0.2-1.2); CK (CPK) 38 U/L (29-168); Calc. Creatinine Clearance 0 mL/min (70-130); Calcium 9.2 mg/dL (7.8-10.44); Carbon Dioxide 23 mmol/L (22-29); Chloride 102 mmol/L (98-107); Estimated GFR-MDRD 66; Globulin 3.1 g/dL (2.4-3.5); Glucose 101 mg/dL (70-105); Potassium 3.3 mmol/L (3.5-5.1); Protein, Total 6.8 g/dL (6.0-8.3); Sodium 136 mmol/L (136-145)
[2019-02-17 00:24] LABS: #Basophils 0.1 thou/uL (0.0-0.2); #Eosinphils 0.1 thou/uL (0.0-0.7); #Lymphocytes 2.2 thou/uL (1.20-3.40); #Monocytes 0.6 thou/uL (0.11-0.59); #Neutrophils 4.8 thou/uL (1.40-6.50); %Basophils 0.8 % (0.0-1.0); %Eosinophils 1.2 % (0.0-10.0); %Lymphocytes 28.7 % (21.0-51.0); %Monocytes 7.4 % (0.0-10.0); %Neutrophils 61.9 % (42.0-75.0); Anisocytosis MODERATE=16-30 cells (100X) (0-5/hpf); Hypochromia SLIGHT = 6-15 cells (100X) (0-5/hpf); MDiff Complete? YES; Microcytosis SLIGHT = 6-15 cells (100X) (0-5/hpf); Tear Drops SLIGHT = 2-5 cells (100X) (0-1/hpf)
[2019-02-17 00:33] LABS: BHCG - Serum Negative (NEGATIVE); Pregs Control Background? CLEAR/WHITE (CLR/WHITE); Pregs Control Bar Appear? YES (CONTROL BAR)
[2019-02-17] MEDS ORDERED: Metoclopramide HCl 10 MG/2 ML VIAL ONE ×2 (02:27→02:28)
[2019-02-17 03:31] LABS: Troponin I 0.023 ng/mL (< 0.028)
[2019-02-17] MEDS ORDERED: Acetaminophen 500 MG TAB PO PRN (04:25)
[2019-02-17] MEDS ORDERED: Metoclopramide HCl 10 MG/2 ML VIAL IVP PRN (04:25)
[2019-02-17] MEDS ORDERED: Sodium Chloride 0.9% (PF) 10 ML VIAL FS PRN (04:36)
[2019-02-17] MEDS ORDERED: Pantoprazole 40 MG VIAL IVP SCH (04:45)
--- NOTE | 2019-02-17 05:45 | HP ---
CHIEF COMPLAINT: Nausea and vomiting with blood. HISTORY OF PRESENT ILLNESS: This is a 24-year-old female, who presented to [facility] Emergency Department complaining of multiple episodes of emesis with blood-tinged vomit. The patient was recently transitioned to Eliquis after treatment with Coumadin after undergoing an ischemic CVA in 2019. The patient states she began to experience some nausea and had taken oral Zofran without specific relief of her symptoms. The patient had multiple episodes of emesis and noted blood-tinged vomit corroborated by the patient's mother. The patient was recently admitted from 02/04/2019 through 02/08/2019 with complaints of anemia as well as dysphagia, undergoing EGD evaluation on 02/05/2019 showing evidence of generalized gastritis and normal esophagus. The patient was placed on proton pump inhibitor and evaluated for potential H pylori. Endoscopic biopsy results did confirm H pylori; however, patient has not initiated any specific treatment. The patient denied any specific melena, change to her appetite, recent fever, chills, or exposure history. In the emergency room, the patient underwent general evaluation with a hemoglobin noted at 9.6, previously 7.8 in 02/08/2019. The patient received IV Reglan, intravenous normal saline and Protonix 80 mg IV push x1 dose. PAST MEDICAL HISTORY: 1. Acute on chronic systolic congestive heart failure with ejection fraction 10% to 15%. 2. cardiomyopathy with ejection fraction of 10% to 15%. 3. Chronic anemia. 4. Chronic gastritis. 5. Dyslipidemia. 6. Chronic anticoagulation with Eliquis. 7. History of paroxysmal atrial fibrillation. 8. Ischemic cerebrovascular accident with right internal carotid artery disease. 9. History of noncompliance. PAST SURGICAL HISTORY: 1. Status post tonsillectomy. 2. Status post adenoidectomy. 3. Status post bilateral tubal ligation. 4. Status post AICD placement. CURRENT MEDICATIONS: 1. Eliquis 5 mg p.o. b.i.d. 2. Coreg 3.125 mg p.o. b.i.d. 3. Lasix 40 mg p.o. daily. 4. Zofran 4 mg p.o. q.8 hours p.r.n. 5. Protonix 40 mg p.o. daily. 6. Sertraline 25 mg p.o. at bedtime. 7. Aldactone 12.5 mg p.o. b.i.d. 8. Tramadol 50 mg p.o. q.6 hours p.r.n. 9. Enteric-coated aspirin 81 mg p.o. daily. 10. Lipitor 20 mg p.o. at bedtime. 11. Ferrous gluconate 324 mg p.o. q.a.m. 12. Entresto 24/26 mg 1 tablet p.o. b.i.d. ALLERGIES: NO KNOWN DRUG ALLERGIES. FAMILY HISTORY: No inheritable diseases per family report. SOCIAL HISTORY: Patient previously smoking up to 3 to 5 cigarettes per day. No alcohol or illicit drug use. Lives with her mother and 2 children in the [facility] area. REVIEW OF SYSTEMS: CONSTITUTIONAL: Negative for weight loss or gain, ability to conduct usual activities. SKIN: Negative for rash, itching. EYES: Negative for double vision, pain. ENT/MOUTH: Negative for nose bleeding, neck stiffness, pain, tenderness. CARDIOVASCULAR: Negative for palpitations, dyspnea on exertion, orthopnea. RESPIRATORY: Negative for shortness of breath, wheezing, cough, hemoptysis, fever or night sweats. GASTROINTESTINAL: Negative for poor appetite, abdominal pain, heartburn, nausea, vomiting, constipation, or diarrhea. GENITOURINARY: Negative for urgency, frequency, dysuria, nocturia. MUSCULOSKELETAL: Negative for pain, swelling. NEUROLOGIC/PSYCHIATRIC: Negative for anxiety, depression. ALLERGY/IMMUNOLOGIC: Negative for skin rash, bleeding tendency. Otherwise negative except as stated per HPI. PHYSICAL EXAMINATION: VITAL SIGNS: On admission, blood pressure 104/68, pulse 103, respiratory rate 20, temperature 98.2 degrees Fahrenheit, O2 saturation 98% on room air. GENERAL APPEARANCE: This is a 24-year-old female, alert, responsive, in no acute distress. HEENT: Pupils are equal, round, reactive to light and accommodation. Extraocular muscles are intact. No conjunctival injection. Nares are patent. OP is clear. Teeth in fair repair. NECK: Supple. No cervical adenopathy. No thyromegaly. No carotid bruits. No JVD appreciated. Cervical spine with full active and passive range of motion. No meningeal signs noted. CHEST: Lungs are clear to auscultation bilaterally CARDIOVASCULAR: S1, S2 with tachycardia. ABDOMEN: Rounded with mild tenderness to palpation in the mid epigastric region. No palpable mass. No rebound or guarding. EXTREMITIES: Warm and dry with fair turgor. No clubbing, cyanosis, or asymmetric edema appreciated. Pulses palpable distally at the dorsalis pedis, posterior tibial, and popliteal arteries bilaterally. Capillary refill less than 2 seconds. NEUROLOGIC: Cranial nerves 2 through 12 are grossly intact. No focal or lateralizing signs appreciated. PERTINENT LAB AND X-RAY FINDINGS: Sodium 136, potassium 3.3, chloride 102, CO2 of 23, BUN 15, creatinine 1.20, estimated GFR of 66, glucose 101, calcium 9.2, total bilirubin 1.4. LFTs within normal limits. BNP 3858, previously noted 3559 on 02/04/2019. Serum beta HCG negative. CBC showed a white blood cell count of 7.8, hemoglobin 9.6, hematocrit 33, and platelet count 190, with a normal differential. Portable chest x-ray dated 02/16/2019 showed left-sided AICD in place. Cardiomegaly. No acute process identified. EKG dated 02/16/2019 by my interpretation shows sinus tachycardia with heart rates in the 110s. Attenuated R-waves noted in the precordial leads. Rightward axis. ASSESSMENT AND PLAN: 1. Hematemesis. Suspect multifactorial. The patient with prior diagnosis of gastritis by EGD, 02/05/2019. We will continue Protonix 40 mg IV b.i.d. Hold Eliquis. Consult GI Service for any further recommendations or management options. 2. Hypokalemia. Potassium chloride supplementation and repeat potassium level in the a.m. 3. Acute kidney injury. Suspect multifactorial given the patient's presentation and poor oral intake. Avoid nephrotoxic agents and limit contrast exposure. Repeat creatinine in the a.m. 4. cardiomyopathy with ejection fraction of 10% to 15%. We will continue medical management. Continue Coreg 3.125 mg p.o. b.i.d. Continue Entresto one tablet p.o. b.i.d. 5. Chronic normocytic anemia. Continue serial hemoglobin and hematocrit monitoring. See #1 above. 6. Chronic anticoagulation. We will hold Eliquis. Consider Cardiology consultation given patient's hematemesis. 7. Prophylaxis. SCDs while in bed. Protonix 40 mg IV q.12 hours. CODE STATUS: Full. Surrogate medical decision maker is the patient's mother. Job ID: [id number]
[2019-02-17 06:16] LABS: Troponin I 0.023 ng/mL (< 0.028)
[2019-02-17] MEDS: Metoclopramide HCl 10 MG/2 ML VIAL IVP SCH ×3 (06:41→17:47)
[2019-02-17] MEDS ORDERED: Iron, Sodium Ferric Gluconate 250 MG in Sodium Chloride 0.9% 250 ML 250 ML IVPB SCH (08:00)
[2019-02-17] MEDS ORDERED: Iron Sucrose Complex 200 MG in Sodium Chloride 0.9% 250 ML 250 ML IVPB SCH (08:00)
[2019-02-17] MEDS: Spironolactone 25 MG TAB PO SCH ×2 (08:33→17:30)
[2019-02-17] MEDS: Carvedilol 3.125 MG TAB PO SCH ×2 (08:33→17:46)
[2019-02-17] MEDS: Magnesium Chloride 64 MG TAB PO SCH (08:45)
[2019-02-17] MEDS: Pantoprazole 40 MG VIAL IVP SCH ×2 (08:46→22:11)
[2019-02-17 09:26] LABS: Hemoglobin 8.8 g/dL (12.0-16.0); Platelet Count 163 thou/uL (130-400)
[2019-02-17 09:38] LABS: Albumin 3.3 g/dL (3.5-5.0); Anion Gap 12 mmol/L (10-20); BUN (Urea Nitrogen) 15 mg/dL (7.0-18.7); BUN/Creatinine Ratio 13.16; Calc. Creatinine Clearance 66 mL/min (70-130); Calcium 8.3 mg/dL (7.8-10.44); Carbon Dioxide 24 mmol/L (22-29); Chloride 104 mmol/L (98-107); Estimated GFR-MDRD 70; Glucose 86 mg/dL (70-105); Magnesium 1.7 mg/dL (1.6-2.6); Phosphorus 3.8 mg/dL (2.3-4.7); Potassium 3.5 mmol/L (3.5-5.1); Sodium 136 mmol/L (136-145)
[2019-02-17] MEDS ORDERED: Magnesium Sulfate 2 GM in Sodium Chloride 0.9% 100 ML IVPB SCH (09:45)
[2019-02-17] MEDS ORDERED: Magnesium 2 GM/50 ML 2 GM in Premix Bag 1 BAG IVPB SCH (10:00)
[2019-02-17] MEDS: Potassium Chloride 20 MEQ TAB PO SCH ×2 (10:25→10:33)
[2019-02-18] MEDS ORDERED: Furosemide 40 MG/4 ML VIAL SLOW IVP SCH (01:30)
[2019-02-18] MEDS: Metoclopramide HCl 10 MG/2 ML VIAL IVP SCH ×3 (01:42→10:54)
[2019-02-18] MEDS ORDERED: ALPRAZolam 0.25 MG TAB PO SCH (04:00)
[2019-02-18 06:18] LABS: Anion Gap 11 mmol/L (10-20); BUN (Urea Nitrogen) 12 mg/dL (7.0-18.7); Calc. Creatinine Clearance 64 mL/min (70-130); Carbon Dioxide 26 mmol/L (22-29); Chloride 104 mmol/L (98-107); Estimated GFR-MDRD 70; Glucose 98 mg/dL (70-105); Potassium 3.2 mmol/L (3.5-5.1); Sodium 138 mmol/L (136-145)
[2019-02-18 06:49] LABS: Mean Corpuscular Hemoglobin 23.9 pg (27.0-31.0); Mean Corpuscular Volume 82.3 fL (78.0-98.0); Mean Platelet Volume 12.4 fL (7.4-10.4); Platelet Count 163 thou/uL (130-400); RBC Distribution Width 23.7 % (11.5-14.5); Red Blood Cell (RBC) Count 3.77 mill/uL (4.20-5.40); White Blood Cell (WBC) Count 6.1 thou/uL (4.8-10.8)
[2019-02-18 07:22] LABS: Anisocytosis MODERATE=16-30 cells (100X) (0-5/hpf); Band 1 % (5-11); Bite Cells SLIGHT = 2-5 cells (100X) (0-1/hpf); Hypochromia SLIGHT = 6-15 cells (100X) (0-5/hpf); Lymphocytes 36 % (21-51); MDiff Complete? YES; Monocytes 2 % (0-10); Neutrophil 60 % (42-75); Ovalocytes SLIGHT = 2-5 cells (100X) (0-1/hpf); Platelet Morphology Comment Appears Adequate; Polychromasia SLIGHT = 2-3 cells (100X) (0-2/hpf)
--- NOTE | 2019-02-18 08:00 | CON ---
DATE OF CONSULTATION: REASON FOR CONSULTATION: Reported hematemesis. HISTORY OF PRESENT ILLNESS: Ms. Tapia is a 24-year-old female, who reports she is taking her Lasix and it would not go down yesterday and she started throwing up and she threw up blood six times. She states there were some clots in that. She wants to eat now. She is hungry. She denies any abdominal pain or vomiting or nausea. She denies any melena, hematochezia, or hematemesis. She was recently here in the hospital from 02/04 to 02/08 with acute on chronic systolic and diastolic heart failure, cough, and chest pain. Also was noted to be chronically anemic dysphagia. She underwent EGD, showed normal esophagus, diffuse erythematous gastritis. Biopsies apparently showed H pylori she found out about on her return admission. The patient notes she was not having any vomiting at that time or throwing up blood at that time. She denies having had hematemesis in the past and feels it was probably related to her pill she took not going down correctly. PAST MEDICAL HISTORY: 1. Congestive heart failure related to cardiomyopathy. She has had a previous defibrillator placement. She also has had some atrial fibrillation. 2. She has recently been diagnosed with H pylori gastritis on an EGD just about a week ago on 02/05/2019. Hemoglobin on last admission was 8.7, today it is 8.8. 3. Prior history of paroxysmal atrial fibrillation. 4. History of ischemic cerebrovascular and right carotid disease. SURGICAL HISTORY: 1. She notes that she has had tonsil surgery. She has had 2 children, one after her cardiomyopathy. 2. Tubal ligation. MEDICATIONS: At home; 1. Eliquis. 2. Coreg. 3. Zoloft. 4. Zofran. 5. Lasix. 6. Protonix. 7. Sertraline. 8. Aldactone. 9. Tramadol. 10. Enteric-coated aspirin. 11. Lipitor. 12. Ferrous gluconate. 13. Entresto. ALLERGIES: NONE KNOWN. FAMILY HISTORY: No overt GI disease. SOCIAL HISTORY: Nonsmoker. She does drink alcoholic at times, but not regularly. REVIEW OF SYSTEMS: Negative for weight loss, weight gain, dysphagia, or odynophagia. She has no throat pain presently. She has had no nausea or vomiting now. She denies headache. She denies fever or chills. PRESENT MEDICATIONS: 1. Tylenol. 2. Reglan. 3. Zofran. 4. Protonix 40 IV q.12. 5. Aldactone 12.5 daily. PHYSICAL EXAMINATION: GENERAL: She is resting comfortably in bed. She is in no distress. She says she is thirsty and wants to start eating. VITAL SIGNS: Pulse 109 to 104, temperature 98.2, blood pressure 108/72. GENERAL: She is thin. She is alert and oriented to person, place, and time. HEENT: Oropharynx without lesions. NECK: Supple. No adenopathy. LUNGS: Clear. HEART: Regular rate and rhythm. ABDOMEN: Soft. Nontender. There is no palpable hepatosplenomegaly. EXTREMITIES: No clubbing, cyanosis, or edema. ASSESSMENT: Self-limited hematemesis, likely she had some acute esophagitis from swallowing a pill; however, had Lis-Murray tear, which was exacerbated by the Eliquis. She had been on this, on hold now. For today, her hemoglobin is stable at 8.8, it was 8.7 on 02/04 when she came to the hospital on last admission. Prior to that, it was 10.5 in December of 2018. RECOMMENDATIONS: 1. Agree with IV PPIs. 2. Clear liquid diet, advance as tolerated. 3. If there is any further bleeding, we would consider endoscopy, but I think there probably would not be and she can start back on her Eliquis in 24-48 hours. 4. With regard to her history of H pylori, this needs to be treated, but I would wait until her stomach calms down a little bit more as she has no symptoms now, it is more likely a GI upset with abdominal pain and nausea from the regimen. On discharge, she is doing well. We can treat her H pylori, treatment regimen would be for Prilosec or Protonix b.i.d. for 14 days with doxycycline 100 mg p.o. b.i.d., Flagyl 250 mg q.i.d., and bismuth 240 mg p.o. q.i.d., all for 14 days. Job ID: [id number]
[2019-02-18] MEDS: Magnesium Chloride 64 MG TAB PO SCH (08:39)
[2019-02-18] MEDS: Spironolactone 25 MG TAB PO SCH ×2 (08:39→16:26)
[2019-02-18] MEDS: Pantoprazole 40 MG VIAL IVP SCH ×2 (08:40→21:25)
[2019-02-18] MEDS: Carvedilol 3.125 MG TAB PO SCH ×2 (08:40→16:26)
[2019-02-18] MEDS: Potassium Chloride 20 MEQ TAB PO SCH (08:40)
[2019-02-18] MEDS: ALPRAZolam 0.25 MG TAB PO PRN (15:24)
[2019-02-18] MEDS: Ondansetron PF 4 MG/2 ML Vial IVP PRN (15:36)
--- NOTE | 2019-02-18 16:11 | EKG ---
Test Reason : STAT Blood Pressure : / mmHG Vent. Rate : 111 BPM Atrial Rate : 111 BPM P-R Int : 150 ms QRS Dur : 068 ms QT Int : 294 ms P-R-T Axes : -07 117 012 degrees QTc Int : 399 ms Sinus tachycardia Right axis deviation Low voltage QRS Cannot rule out Anterior infarct Abnormal ECG Confirmed by MARY ANN CERDA ([id number] on 02/18/2019 4:11:40 PM Referred By: MIKEL GROSS Confirmed By:MARY ANN CERDA
--- NOTE | 2019-02-18 16:55 | PRG ---
DATE OF SERVICE: 02/18/2019 SUBJECTIVE: A 24-year-old female with congestive heart failure secondary to cardiomyopathy as well as recent EGD showing H pylori gastritis, presented to the emergency room with hematemesis. She did not have any new episodes of hematemesis. She continues to have intermittent nausea. She denies any abdominal pain. No diarrhea reported. CURRENT MEDICATIONS: Reviewed. The patient is on schedule Reglan started on admission along with IV PPIs, carvedilol 3.125 mg b.i.d., Slow-Mag, potassium, Entresto, Zoloft as well as Aldactone. Eliquis and aspirin are currently on hold. OBJECTIVE: VITAL SIGNS: Temperature 97.9, pulse rate of 106, respiration 14, blood pressure 100/63, and O2 saturation 100% on room air. GENERAL: A 24-year-old female, in no apparent distress. LUNGS: Clear to auscultation bilaterally. No wheezing or rales. ABDOMEN: Soft. Mild epigastric tenderness. No rebound or guarding. HEART: S1 and S2 present. Regular. NEUROLOGIC: Grossly nonfocal. EXTREMITIES: No edema or calf tenderness. LABORATORY FINDINGS: WBC 6.1 with hemoglobin 9.0, potassium 3.2, creatinine 1.13. Troponin was negative. test was negative. Telemetry monitoring by my review showed sinus rhythm/sinus tachycardia. IMPRESSION: 1. Hematemesis probably secondary to gastritis versus Lis-Murray tear. 2. Acute blood loss anemia. 3. Chronic systolic heart failure, ejection fraction 10% to 15% secondary to cardiomyopathy. 4. History of chronic anemia. 5. Helicobacter pylori gastritis. 6. Dyslipidemia. 7. Paroxysmal atrial fibrillation, on anticoagulation. Please note, the Eliquis is currently on hold. 8. History of cerebrovascular accident with right internal carotid artery disease. 9. History of medication noncompliance. 10. Chronic kidney disease, stage 2. 11. Hypokalemia. 12. Mild protein-calorie malnutrition. PLAN: The patient will remain on the medical floor. We will discontinue Reglan. Continue IV PPIs. We will advance diet as tolerated. If she is able to tolerate regular diet, she can potentially be discharged this evening. We will replace potassium. If the patient stays here tomorrow, then we will recheck the hemoglobin and potassium in a.m. Continue other medications. Eliquis and aspirin can be resumed after 24 to 48 hours per Gastroenterology. H pylori treatment will be started once symptoms improved, probably as outpatient. Job ID: [id number]
--- NOTE | 2019-02-18 19:56 | PRG ---
DATE OF SERVICE: 02/18/2019 SUBJECTIVE: Ms. Tapia is sleeping now. The nurses note she received Xanax earlier. The family reports she threw up several times today a little bit of blood. She did not really eat much. The nurses report she threw up once about 50 or 60 mL after drinking juice all day. The patient when she is aroused, does not give any complaints. MEDICATIONS: 1. Tylenol. 2. DuoNeb. 3. Xanax 0.25 p.o. b.i.d. p.r.n. 4. Coreg 3.125 mg p.o. b.i.d. with meals. 5. Magnesium chloride. 6. Slow-Mag 64 mg daily. 7. Zofran p.r.n. 8. Protonix 40 mg IV q.12. 9. Potassium 20 mEq p.o. with meals. 10. Entresto. 11. Sertraline. 12. Aldactone 12.5 mg p.o. b.i.d. PHYSICAL EXAMINATION: GENERAL: She is resting in bed. VITAL SIGNS: Pulse is 120, temperature 97.2, and blood pressure 108/70. LUNGS: Clear. HEART: Regular rate and rhythm without clicks or murmurs. ABDOMEN: Nontender. ASSESSMENT: 1. Tachycardia with irregular rhythms. Apparently, she has junctional tachycardia at times. Etiology is unclear. She does have a history of heart failure. 2. Nausea and vomiting. She had some gastritis at last admission, which should not make her to have nausea and vomiting. 3. She has had a stroke recently. 4. Hematemesis reported, but her hemoglobin has been stable, it is 9 today, it was 9.6 on admission. RECOMMENDATIONS: 1. The patient will be started on IV fluids. 2. We will defer her to Primary Service to deal with her tachycardia, it may be worthwhile seeing a tank wagon operator if she does not respond to some fluid boluses as she has a cardiomyopathy. 3. If she continues to have nausea and vomiting, she needs to have a CAT scan of her head to make sure there are no changes there related to the recent stroke, which she has been on blood thinners. At this time, there is no reason to repeat her endoscopy. Job ID: [id number]
[2019-02-18] MEDS: Dextrose 5 % And 0.9 % NaCl 1,000 ML IV SCH (21:18)
[2019-02-19 04:47] LABS: Hemoglobin 9.7 g/dL (12.0-16.0)
[2019-02-19 04:57] LABS: Potassium 3.5 mmol/L (3.5-5.1)
[2019-02-19] MEDS: ALPRAZolam 0.25 MG TAB PO PRN (08:47)
[2019-02-19] MEDS: Spironolactone 25 MG TAB PO SCH ×2 (08:47→16:04)
[2019-02-19] MEDS: Potassium Chloride 20 MEQ TAB PO SCH (08:48)
[2019-02-19] MEDS: Carvedilol 3.125 MG TAB PO SCH ×2 (08:48→16:04)
[2019-02-19] MEDS: Pantoprazole 40 MG VIAL IVP SCH (08:48)
[2019-02-19] MEDS: Magnesium Chloride 64 MG TAB PO SCH (08:49)
[2019-02-19] MEDS: Dextrose 5 % And 0.9 % NaCl 1,000 ML IV SCH (08:50)
[2019-02-19] MEDS ORDERED: Ivabradine 5 MG TAB PO SCH (09:00)
[2019-02-19] MEDS ORDERED: Furosemide 20 MG/2 ML VIAL SLOW IVP SCH (09:45)
--- NOTE | 2019-02-19 10:09 | PRG ---
DATE OF SERVICE: 02/19/2019 SUBJECTIVE: Ms. Tapia had some trouble breathing last night. She has been receiving intravenous fluid. There is no chest pain. OBJECTIVE: VITAL SIGNS: Blood pressure 100/58, pulse 118, it is sinus. LUNGS: Bibasilar rales. CARDIAC: Tachycardiac for rest. ABDOMEN: Soft, nontender. EXTREMITIES: There is no clubbing or cyanosis. She has no edema. ASSESSMENT: 1. Severe cardiomyopathy. 2. Previous defibrillator. 3. Recent hematemesis. 4. History of probably embolic stroke. PLAN: 1. Stop IV fluid. She appears to be back in heart failure. 2. Hold Entresto and carvedilol, if the blood pressure is below 90 systolic. 3. Start ivabradine (Corlanor) for tachycardia tomorrow. 4. Potassium. 5. Spironolactone. 6. Resume Eliquis when felt to be safe from GI standpoint. Job ID: [id number]
[2019-02-19] MEDS: Ondansetron PF 4 MG/2 ML Vial IVP PRN ×2 (11:25→21:10)
[2019-02-19] MEDS ORDERED: Potassium Chloride 20 MEQ TAB PO SCH (12:00)
--- NOTE | 2019-02-19 12:10 | PDOC.PALCO ---
Palliative Care Consult - Consult Details Requesting Physician: Dr Miller Reason for Consult: goals of care, assistance with communication prognosis/ disease Family Members Present: Patient mom - Pertinent HPI Present to ER with multiple episodes of emesis that was blood tinged. Recent transition to Eliquis (previously on Coumadin) secondary to CVA in December. Progressing Heart Failure, currently a ejection fraction of 10-15%. Consult to Pallliative care team to assist with goals of care in line with disease trajectory. Patient has a son who is 8 (She reports he had a heart transplant at 8months of age and is followed by [facility]) Developed cardiomyopathy after first and was advised not to have other children. Patient and mother report cardiac disease progressed with subsequent . Second child is a daughter who is 6. Patient lives with her mother and Stepfather Nicholas who are her primary support persons. - Pertinent PMH Acute on chronic heart failure with ej of 10-15%, cardiomyopathy, anemia chronic in nature, Aproxysmal atrial fib,CVA - Social History Smoking Status: Former smoker Smoking: quit less than 1 year Alcohol Use: none Drug Use History: none Living Situation: with family/parents - Medications MAR Reviewed: Yes - Allergies Allergies/Adverse Reactions: Allergies Allergy/AdvReac Type Severity Reaction Status Date / Time No Known Drug Allergies Allergy Verified 02/04/19 20:01 - Subjective Awake alert and fully oriented. Appears to unintentionally conserve energy, fatigues. Reports recent nocternal use of O2. Mother at bedside. Reports she sleeps with the HOB elevated and uses a walker to ambulate secondary to right sided weakness. - Objective Vital Signs: Vital Signs - Most Recent Temp Pulse Resp BP Pulse Ox 98.1 F 116 H 12 95/72 98 02/19/19 11:00 02/19/19 11:00 02/19/19 11:00 02/19/19 11:00 02/19/19 11:00 Palliative Performance Scale: 60 - Physical Exam Constitutional: NAD HEENT: moist MMs, EOMI Deviation from normal: wet non productive cough Deviation from normal: Depressed - Problem List (1) Palliative care encounter Code(s): Z51.5 - ENCOUNTER FOR PALLIATIVE CARE Current Visit: Yes Status: Acute - Plan/Recommendations Plan: Initial visit with patient, her mother, Moose palmer RNsock and stocking ironer to establish relationship. Discussed heart failure, patients understanding of disease and in her won words received her medical history. Patient states the best aspect of a day is going to the store with her mom and her two children. Discussed avoiding heat and measures to conserve energy. Dr Webb notified. We will continue to build relationship with the patient to provide support with her chronic disease process and define goals of care in relation to heart failure and known disease trajectory. [75] minutes spent on this encounter with >50% of the time in counseling and coordination of care. Thank you for this very appropriate consult.
[2019-02-19] MEDS: Apixaban 5 MG TAB PO SCH (20:12)
[2019-02-19] MEDS: Iron, Sodium Ferric Gluconate 250 MG in Sodium Chloride 0.9% 100 ML IVPB SCH (20:17)
--- NOTE | 2019-02-19 20:34 | PRG ---
DATE OF SERVICE: 02/19/2019 SUBJECTIVE: A 24-year-old -[place] female with congestive heart failure secondary to cardiomyopathy, presented to the emergency room with hematemesis. She recently had an EGD that showed H pylori gastritis. She denies any new episodes of nausea, vomiting, or abdominal pain. She is currently tolerating liquid diet. Telemetry monitoring showed sinus rhythm. REVIEW OF SYSTEMS: No chest pain, palpitations, or syncope. CURRENT MEDICATIONS: Reviewed. The patient is on IV PPIs, carvedilol, Lasix, Entresto, Zoloft, and Aldactone. PHYSICAL EXAMINATION: VITAL SIGNS: Temperature 98.1, pulse rate of 116, respirations of 12, blood pressure of 95/72, and O2 saturation 98% on room air. GENERAL: A 24-year-old female, in no apparent distress. LUNGS: Clear to auscultation bilaterally. No rales or wheezing. HEART: S1 and S2 present. Regular rate and rhythm. ABDOMEN: Soft. No significant tenderness. No rebound or guarding. EXTREMITIES: No edema or calf tenderness. NEUROLOGIC: Grossly nonfocal. LABORATORY FINDINGS: Hemoglobin 9.7 and hematocrit 33.8. Iron was 41, ferritin was 110. Magnesium 2 days ago was 1.7 and potassium was 3.5. IMPRESSION: 1. Hematemesis probably secondary to Helicobacter pylori gastritis versus Lis-Murray tear. No new episodes. 2. Acute blood loss anemia. 3. Chronic systolic heart failure, ejection fraction 10% to 15% secondary to cardiomyopathy. 4. Helicobacter pylori gastritis. Dr. Figueroa' office will start the treatment once the symptoms improve. 5. Dyslipidemia. 6. Paroxysmal atrial fibrillation, on anticoagulation. 7. History of cerebrovascular accident with right internal carotid artery disease. 8. History of medication noncompliance. 9. Hypokalemia. 10. Mild protein-calorie malnutrition. 11. Chronic kidney disease, stage 2. 12. Persistent tachyarrhythmia. PLAN: I discussed the case with Dr. Dennis and Dr. Figueroa. We will change PPIs to p.o. Eliquis will be restarted today. Continue carvedilol. Due to persistent tachycardia, Dr. Dennis has started her on Corlanor. We will recheck labs in a.m. Continue Entresto. DISCHARGE DISPOSITION: Probably in 24 hours if stable. The patient understands the risk associated with anticoagulation. H pylori treatment will be started as outpatient once the symptoms improve. Job ID: [id number]
[2019-02-20 06:44] LABS: #Eosinphils 0.1 thou/uL (0.0-0.7); #Monocytes 0.5 thou/uL (0.11-0.59); #Neutrophils 3.2 thou/uL (1.40-6.50); %Basophils 0.2 % (0.0-1.0); %Eosinophils 1.4 % (0.0-10.0); %Lymphocytes 34.8 % (21.0-51.0); %Monocytes 8.3 % (0.0-10.0); %Neutrophils 55.4 % (42.0-75.0); Hemoglobin 8.8 g/dL (12.0-16.0); Mean Corpuscular HGB CONC 29.3 g/dL (32.0-36.0); Mean Corpuscular Hemoglobin 24.3 pg (27.0-31.0); Mean Platelet Volume 10.1 fL (7.4-10.4); Platelet Count 137 thou/uL (130-400); RBC Distribution Width 23.3 % (11.5-14.5); White Blood Cell (WBC) Count 5.8 thou/uL (4.8-10.8)
[2019-02-20 06:57] LABS: Anion Gap 13 mmol/L (10-20); BUN (Urea Nitrogen) 14 mg/dL (7.0-18.7); Calc. Creatinine Clearance 55 mL/min (70-130); Calcium 8.5 mg/dL (7.8-10.44); Carbon Dioxide 23 mmol/L (22-29); Chloride 103 mmol/L (98-107); Estimated GFR-MDRD 56; Glucose 84 mg/dL (70-105); Magnesium 1.5 mg/dL (1.6-2.6); Potassium 3.4 mmol/L (3.5-5.1); Sodium 136 mmol/L (136-145)
[2019-02-20] MEDS ORDERED: Magnesium Sulfate 2 GM in Sodium Chloride 0.9% 100 ML IVPB SCH (07:15)
[2019-02-20] MEDS ORDERED: Magnesium 2 GM/50 ML 2 GM in Premix Bag 1 BAG IVPB SCH (07:15)
[2019-02-20] MEDS: Ondansetron PF 4 MG/2 ML Vial IVP PRN ×2 (08:30→23:48)
[2019-02-20] MEDS: Spironolactone 25 MG TAB PO SCH ×2 (08:37→17:47)
[2019-02-20] MEDS: Carvedilol 3.125 MG TAB PO SCH ×2 (08:37→17:48)
[2019-02-20] MEDS: Furosemide 40 MG TAB PO SCH (08:37)
[2019-02-20] MEDS: Apixaban 5 MG TAB PO SCH ×2 (08:37→21:49)
[2019-02-20] MEDS: Potassium Chloride 20 MEQ TAB PO SCH (08:39)
[2019-02-20] MEDS: Magnesium Chloride 64 MG TAB PO SCH (08:39)
[2019-02-20] MEDS ORDERED: Ivabradine 5 MG TAB PO SCH (09:00)
[2019-02-20] MEDS: Iron, Sodium Ferric Gluconate 250 MG in Sodium Chloride 0.9% 100 ML IVPB SCH (09:34)
--- NOTE | 2019-02-20 11:54 | PDOC.PN ---
- Subjective Encounter Start Date: 02/20/19 (f/u n/v) Encounter Start Time: 11:52 Subjective: pt c/o n/v today - vomited after breakfast today. Has not taken medication -: today due to this. - Objective Resuscitation Status - Order Detail: 02/17/19 04:10 Resuscitation Status Routine Resuscitation Status: FULL: Full Resuscitation Vital Signs & Weight: Vital Signs (12 hours) Temp Pulse Resp BP Pulse Ox 02/20/19 07:35 97.9 F 110 H 14 107/68 94 L 02/20/19 04:55 99.0 F 100 18 101/76 96 Weight Admit Weight 122 lb 14.4 oz Weight 123 lb 11.2 oz I&O: 02/19/19 02/20/19 02/21/19 06:59 06:59 06:59 Intake Total 1585 1184 Output Total 700 1000 Balance 885 184 Result Diagrams: 02/20/19 05:59 02/20/19 05:59 EKG Reviewed by me: Yes (tele sinus 90-110's) Phys Exam - Physical Examination Constitutional: NAD Respiratory: no wheezing, no rales, no rhonchi, clear to auscultation bilateral Cardiovascular: RRR, no significant murmur Gastrointestinal: soft, non-tender, no distention, positive bowel sounds Musculoskeletal: no edema Neurological: non-focal, moves all 4 limbs Deviation from normal: affect blunted Dx/Plan (1) Cardiomyopathy Code(s): I42.9 - CARDIOMYOPATHY, UNSPECIFIED Status: Chronic - Plan * Persistent n/v * Given hx of stroke -check CT * change to IV protonix * hold on H Pylori tx for now as I'm concerned this may make sx worse * contact Gi and ask for additional recs * schedule reglan four times daily - start with 5 mg dose * Will discuss with pharmacy the time of day for medications and change potassium to oral solution. * * dvt prophy - on full anticoagulation * gi prophy - change to IV PPI * code status full * * reviewed plan of care with patient/her mom, no questions or further needs at end of eval * change to inpatient status - intractable n/v
--- NOTE | 2019-02-20 12:13 | EKG ---
Test Reason : Blood Pressure : / mmHG Vent. Rate : 113 BPM Atrial Rate : 113 BPM P-R Int : 150 ms QRS Dur : 068 ms QT Int : 332 ms P-R-T Axes : -10 106 -07 degrees QTc Int : 455 ms Sinus tachycardia Rightward axis Low voltage QRS Confirmed by ALEXIA BAUTISTA ([id number]), editor city ALESHA MENARD ([id number]) on 02/20/2019 12:13:23 PM Referred By: Confirmed By:ALEXIA BAUTISTA
--- NOTE | 2019-02-20 13:08 | CT ---
CT head without contrast: Multiple axial tomograms obtained through the head without IV enhancement. INDICATIONS: Headache COMPARISON: 01/07/2019 FINDINGS: Ventricles have normal size and position. Right basal ganglia infarct again noted. Increased lucency since prior exam represents expected evolu tion. Technical calcifications again noted and unchanged. Calcification posterior margin of right thalamus unchanged. Visualized sinuses and mastoids appear clear. Bony calvarium appears unremarkable. IMPRESSION: Evolving right basal ganglia infarct as described above. No acute finding.
[2019-02-20] MEDS: Metoclopramide 10 MG/10 ML UDCUP PO SCH ×2 (17:45→21:49)
--- NOTE | 2019-02-20 18:15 | PRG ---
DATE OF SERVICE: 02/20/2019 SUBJECTIVE: Mrs. Tapia has continued to have nausea and multiple episodes of emesis today. Her mother says that today is actually worse than yesterday. This is nonbloody emesis. She has been able to keep some liquids down, but really no solid food. Dr. Fitzgerald has restarted Reglan 5 mg a.c., at bedtime. She continues on Zofran as well. A CT of the head was done and this shows evolving basal ganglia infarction. She is back on Eliquis. PHYSICAL EXAMINATION: VITAL SIGNS: Temperature 97.8, pulse 106, blood pressure 103/73, 96% oxygen saturation on room air. GENERAL: No acute distress. HEART: Regular. Tachycardia. LUNGS: Clear to auscultation bilaterally. ABDOMEN: Bowel sounds are present. The abdomen is soft, really nontender to palpation throughout. EXTREMITIES: No peripheral edema. She does have some jugular venous distention on the right side. LABORATORY STUDIES: Sodium 136, potassium 3.4, BUN 14, creatinine 1.38, magnesium 1.5, iron 41, ferritin 110.2, albumin 3.3. Hemoglobin 8.8, WBC 5.8, platelets 137. IMAGING STUDIES: Brain CT performed earlier today demonstrates evolving right basal ganglia infarct with increased lucencies and prior exam representing expected evolution. ASSESSMENT AND PLAN: 1. Persistent nausea and vomiting. 2. Helicobacter pylori gastritis, mild, currently on PPI b.i.d. 3. Recent right basal ganglial infarct. 4. Severe peripartum cardiomyopathy. I agree with Dr. Figueroa that the patient's gastritis is likely not driving her current nausea and vomiting symptoms. She is already on PPI twice daily. The H. pylori should be treated at some point, but agree with holding antimicrobial for now due to the risk of worsening the nausea in the acute setting. I think it is most likely that the vomiting is a manifestation of her evolving right basal ganglial infarct. I think it would be reasonable to get an abdominal ultrasound and recheck LFTs and a lipase tomorrow, but expect these will be unrevealing. Note, test is negative. Continue with current supportive care including the Reglan, the Zofran as needed, and IV fluids. GI can continue to follow along. Job ID: [id number]
[2019-02-20] MEDS: Pantoprazole 40 MG VIAL IVP SCH (22:00)
[2019-02-20] MEDS: Ivabradine 5 MG TAB PO SCH (22:11)
[2019-02-21 05:00] LABS: #Eosinphils 0.1 thou/uL (0.0-0.7); #Lymphocytes 2.3 thou/uL (1.20-3.40); #Monocytes 0.7 thou/uL (0.11-0.59); #Neutrophils 3.8 thou/uL (1.40-6.50); %Basophils 0.6 % (0.0-1.0); %Eosinophils 1.1 % (0.0-10.0); %Lymphocytes 33.6 % (21.0-51.0); %Neutrophils 54.7 % (42.0-75.0); Mean Corpuscular HGB CONC 28.2 g/dL (32.0-36.0); Mean Corpuscular Volume 85.1 fL (78.0-98.0); Mean Platelet Volume 11.7 fL (7.4-10.4); Platelet Count 135 thou/uL (130-400); RBC Distribution Width 21.9 % (11.5-14.5); Red Blood Cell (RBC) Count 3.75 mill/uL (4.20-5.40)
[2019-02-21 05:15] LABS: ALT (SGPT) 13 U/L (8-55); AST (SGOT) 16 U/L (5-34); Albumin 3.2 g/dL (3.5-5.0); Alkaline Phosphatase 59 U/L (40-150); Anion Gap 13 mmol/L (10-20); BUN (Urea Nitrogen) 15 mg/dL (7.0-18.7); Bilirubin, Total 1.9 mg/dL (0.2-1.2); Calc. Creatinine Clearance 53 mL/min (70-130); Calcium 8.8 mg/dL (7.8-10.44); Carbon Dioxide 24 mmol/L (22-29); Chloride 100 mmol/L (98-107); Estimated GFR-MDRD 54; Glucose 89 mg/dL (70-105); Lipase 6 U/L (8-78); Potassium 3.7 mmol/L (3.5-5.1); Protein, Total 5.7 g/dL (6.0-8.3); Sodium 133 mmol/L (136-145)
[2019-02-21] MEDS: Metoclopramide 10 MG/10 ML UDCUP PO SCH ×4 (09:27→20:23)
--- NOTE | 2019-02-21 09:27 | PDOC.PN ---
- Subjective Encounter Start Date: 02/21/19 (f/u n/v) Encounter Start Time: 09:25 Subjective: Pt vomited last night,none this morning and denies any nausea -: or abd pain. She denies any chest pain - Objective Resuscitation Status - Order Detail: 02/17/19 04:10 Resuscitation Status Routine Resuscitation Status: FULL: Full Resuscitation Vital Signs & Weight: Vital Signs (12 hours) Temp Pulse Resp BP Pulse Ox 02/21/19 07:18 98.6 F 97 20 101/68 98 02/21/19 04:00 98.6 F 102 H 20 97/60 99 02/21/19 00:00 97.7 F 101 H 18 94/71 98 Weight Admit Weight 122 lb 14.4 oz Weight 130 lb I&O: 02/20/19 02/21/19 02/22/19 06:59 06:59 06:59 Intake Total 1184 600 Output Total 1000 250 Balance 184 350 Result Diagrams: 02/21/19 04:44 02/21/19 04:44 EKG Reviewed by me: Yes (tele - sinus 90-100's) Phys Exam - Physical Examination Constitutional: NAD Respiratory: no wheezing, no rales, no rhonchi, clear to auscultation bilateral Cardiovascular: RRR, no significant murmur Gastrointestinal: soft, non-tender, no distention, positive bowel sounds Musculoskeletal: no edema Neurological: non-focal, moves all 4 limbs Skin: no rash Dx/Plan (1) Cardiomyopathy Code(s): I42.9 - CARDIOMYOPATHY, UNSPECIFIED Status: Chronic (2) History of recent stroke Code(s): Z86.73 - PRSNL HX OF TIA (TIA), AND CEREB INFRC W/O RESID DEFICITS Status: Acute (3) Atrial fibrillation Code(s): I48.91 - UNSPECIFIED ATRIAL FIBRILLATION Status: Acute (4) Gastritis Code(s): K29.70 - GASTRITIS, UNSPECIFIED, WITHOUT BLEEDING Status: Chronic (5) Anemia Code(s): D64.9 - ANEMIA, UNSPECIFIED Status: Chronic (6) BONNIE (acute kidney injury) Code(s): N17.9 - ACUTE KIDNEY FAILURE, UNSPECIFIED Status: Acute - Plan * * Persistent n/v - appreciate GI evaluation * Likely related to recent stroke - no signs of active bleeding, only evolving stroke on CT scan * Abd US result pending * continue to IV protonix * hold on H Pylori tx - can be done as an outpatient, not considered the source of n/v * continue reglan four times daily - start with 5 mg dose * clear liquid diet for now * BONNIE - slight worsening * low bp's - hold entresto, lasix, and spironolactone for now and monitor renal function * pt with poor PO intake due to n/v - likely reasoning for the change * Severe CM with systolic HF - appreciate Cardiology eval/tx * * dvt prophy - on full anticoagulation with eliquis * gi prophy - change to IV PPI * code status full * * reviewed plan of care with patient/her mom, no questions or further needs at end of eval
[2019-02-21] MEDS: Carvedilol 3.125 MG TAB PO SCH ×2 (09:28→16:13)
[2019-02-21] MEDS: Pantoprazole 40 MG VIAL IVP SCH ×2 (09:28→20:25)
[2019-02-21] MEDS: Furosemide 40 MG TAB PO SCH (09:29)
[2019-02-21] MEDS: Spironolactone 25 MG TAB PO SCH (09:29)
--- NOTE | 2019-02-21 10:30 | ULT ---
ABDOMINAL ULTRASOUND: Date: 02/21/19 HISTORY: Abdominal pain with nausea and vomiting. FINDINGS: Gallbladder demonstrates a thickened wall, measuring 6-7 mm. There is echogenic sludge within the gal lbladder. No definite gallstones identified. Technologist describes a negative Gonzalez's sign. Common bile duct within normal range. Visualized aorta and IVC normal. Visualized pancreas normal. Liver and spleen unremarkable. Kidneys unremarkable. IMPRESSION: Gallbladder is abnormal with thickened wall and echogenic sludge identified. POS: IANH
--- NOTE | 2019-02-21 10:45 | PRG ---
DATE OF SERVICE: 02/20/2019 TIME OF VISIT: 1300 hours. SUBJECTIVE: Ms. Tapia is up and moving to the shower. She has had no acute overnight cardiac events. She continues to have hematemesis intermittently. She is being transferred to inpatient monitoring. She is placed on Corlanor yesterday, and her heart rate still remains 110 to 120 after one dosage. OBJECTIVE: GENERAL: The patient is alert, awake, and oriented x3. NEUROLOGIC: Stable. VITAL SIGNS: Pulse as above. The patient afebrile. Blood pressure is 94 to 101 systolic. HEENT: Head is atraumatic and normocephalic. Mucous membranes moist. NECK: Supple. No JVD. CHEST: Clear. CARDIOVASCULAR: Reveals regular rhythm and tachycardic. ABDOMEN: Soft. EXTREMITIES: No edema. IMPRESSION: 1. Hematemesis. 2. Chronic systolic congestive heart failure, status post ICD placement. 3. Tachycardia. At this time, there has been no medication changes. We will continue monitoring her on her current regimen. Job ID: [id number]
[2019-02-21] MEDS: Ivabradine 5 MG TAB PO SCH ×2 (10:54→20:24)
[2019-02-21] MEDS: Apixaban 5 MG TAB PO SCH ×2 (10:55→20:25)
--- NOTE | 2019-02-21 11:32 | PRG ---
DATE OF SERVICE: 02/21/2019 SUBJECTIVE: Ms. Tapia is having a better morning. She has not had any vomiting. She denies any nausea or abdominal pain. She has a clear liquid diet available, not much oral intake still. She was started on Reglan. OBJECTIVE: VITAL SIGNS: Temperature 98.6, pulse 97, blood pressure 101/68, and 98% oxygen saturation on room air. GENERAL: No acute distress. HEART: Regular rate and rhythm. LUNGS: Clear to auscultation bilaterally. ABDOMEN: Soft and nontender to palpation. EXTREMITIES: No peripheral edema. LABORATORY STUDIES: WBC 7.0, hemoglobin 9.0, and platelets 135. Sodium 133, potassium 3.7, BUN 15, and creatinine 1.42. Total bilirubin is elevated now to 1.9. This is the highest that it has been. Direct bilirubin 1.0. All other LFTs normal. Alkaline phosphatase 59, AST 16, and ALT 13. Lipase is normal at 6. IMAGING STUDIES: Abdominal ultrasound performed earlier today shows gallbladder wall thickening to 6-7 mm, also echogenic sludge within the gallbladder. Gonzalez sign is negative and common bile duct is in normal range. Looking back in December of this year, the patient had a HIDA scan with ejection fraction of 44%. ASSESSMENT/PLAN: 1. Persistent nausea and vomiting. 2. Elevated bilirubin, new. 3. Gallbladder wall thickening and gallbladder sludge on ultrasound from this morning. 4. Helicobacter pylori gastritis, mild, currently on PPI b.i.d. 5. Recent right basal ganglia infarct. 6. Severe peripartum cardiomyopathy. My impression remains that the patient's persistent nausea is still likely more due to her recent right basal ganglia stroke than anything else. However, we do have this new bilirubin elevation and ultrasound showing some gallbladder wall thickening and echogenic sludge. I note that HIDA scan was normal in December, but symptoms have progressed since then and the LFT elevation is new. I would recommend repeating a HIDA scan. Obviously, if we do decide this is more gallbladder related, the patient is not a great operative candidate, but surgical evaluation could be considered. With regard to the H pylori gastritis, again, I do not think it is driving her symptoms. She continues on acid suppression. Antibiotic therapy can be done in the future once her more acute issues with nausea and vomiting have improved. Continue current supportive care including the Reglan, the Zofran as needed, and IV fluids. Job ID: [id number]
[2019-02-21 11:36] LABS: BHCG - Serum Negative (NEGATIVE); Pregs Control Background? CLEAR/WHITE (CLR/WHITE); Pregs Control Bar Appear? YES (CONTROL BAR)
[2019-02-21] MEDS: Magnesium Chloride 64 MG TAB PO SCH (12:54)
--- NOTE | 2019-02-21 14:57 | PDOC.CTH ---
Cardiology Progress Note - Subjective Attempted to see patient. Down in [place] for HIDA scan. Discussed care with family. - Objective Vital Signs Temp Pulse Pulse Pulse Resp BP BP 02/21/19 11:51 93 15 02/21/19 11:31 91 93 98/62 94/65 02/21/19 09:27 02/21/19 07:18 98.6 F 97 20 02/21/19 04:00 98.6 F 102 H 20 BP Pulse Ox 02/21/19 11:51 94/65 98 02/21/19 11:31 02/21/19 09:27 98 02/21/19 07:18 101/68 98 02/21/19 04:00 97/60 99 Admit Weight 122 lb 14.4 oz Weight 130 lb 02/20/19 02/21/19 02/22/19 06:59 06:59 06:59 Intake Total 1184 600 Output Total 1000 250 Balance 184 350 - Telemetry Telemetry Rhythm: SR-ST - Labs Result Diagrams: 02/21/19 04:44 02/21/19 04:44 Troponin/CKMB Troponin I 0.023 ng/mL (< 0.028) 02/17/19 05:39 - Assessment/Plan 1. Acute on chronic systolic CHF 2. Hematemasis 3. Tachycardia Pulse rate improved on Corlanor. BP remains low, but stable. Continue GI work- up.
--- NOTE | 2019-02-21 16:25 | PDOC.EVN ---
Event Note - Event Note Event Note: contacted by RN that pt is hungry post-NM scan and requesting regular food. Will order a heart healthy/fluid restricted diet.
--- NOTE | 2019-02-21 16:40 | NM ---
EXAM: Nuclear medicine hepatobiliary scan HISTORY: Right upper quadrant abdominal pain TECHNIQUE: A nuclear medicine hepatobiliary scan was performed after administration of 4.5 mCi of maggi hnetium 99m mebrofenin. 1.1 mcg cholecystokinin administered, 30 minute infusion, IV COMPARISON: None FINDINGS: Prompt uptake of the radiopharmaceutical by the liver is seen. No photopenic liver defects are seen. Biliary activity is seen within 5 minutes. Gallbladder activity is seen within 8 minutes. Bowel activity is seen within 20 minutes. A gallbladder ejection fraction was calculated at 55%. IMPRESSION: Normal hepatobiliary scan
[2019-02-21] MEDS ORDERED: Melatonin 3 MG TAB PO PRN (19:31)
[2019-02-22] MEDS: ALPRAZolam 0.25 MG TAB PO PRN (00:14)
[2019-02-22 05:42] LABS: Anion Gap 16 mmol/L (10-20); BUN (Urea Nitrogen) 16 mg/dL (7.0-18.7); Calc. Creatinine Clearance 58 mL/min (70-130); Calcium 8.7 mg/dL (7.8-10.44); Carbon Dioxide 20 mmol/L (22-29); Chloride 99 mmol/L (98-107); Estimated GFR-MDRD 57; Glucose 102 mg/dL (70-105); Potassium 3.6 mmol/L (3.5-5.1); Sodium 131 mmol/L (136-145)
[2019-02-22] MEDS ORDERED: Magnesium 2 GM/50 ML 2 GM in Premix Bag 1 BAG IVPB SCH (06:00)
[2019-02-22 06:25] LABS: #Basophils 0.1 thou/uL (0.0-0.2); #Eosinphils 0.1 thou/uL (0.0-0.7); #Lymphocytes 2.4 thou/uL (1.20-3.40); #Monocytes 0.8 thou/uL (0.11-0.59); #Neutrophils 4.9 thou/uL (1.40-6.50); %Basophils 0.9 % (0.0-1.0); %Eosinophils 0.8 % (0.0-10.0); %Lymphocytes 28.9 % (21.0-51.0); %Monocytes 9.8 % (0.0-10.0); %Neutrophils 59.7 % (42.0-75.0); Burr Cells SLIGHT = 2-5 cells (100X) (0-1/hpf); Hemoglobin 9.6 g/dL (12.0-16.0); Hypochromia MODERATE=16-30 cells (100X) (0-5/hpf); Lymphocytes 27 % (21-51); MDiff Complete? YES; Mean Corpuscular HGB CONC 28.9 g/dL (32.0-36.0); Mean Corpuscular Hemoglobin 24.1 pg (27.0-31.0); Mean Corpuscular Volume 83.2 fL (78.0-98.0); Mean Platelet Volume 10.6 fL (7.4-10.4); Monocytes 4 % (0-10); Neutrophil 69 % (42-75); Platelet Count 145 thou/uL (130-400); Platelet Morphology Comment Appears Adequate; RBC Distribution Width 23.7 % (11.5-14.5); Red Blood Cell (RBC) Count 3.97 mill/uL (4.20-5.40); White Blood Cell (WBC) Count 8.2 thou/uL (4.8-10.8)
--- NOTE | 2019-02-22 07:29 | PDOC.PN ---
- Subjective Encounter Start Date: 02/22/19 (f/u on n/v) Encounter Start Time: 07:27 Subjective: Pt denies any n/v, denies any diarrhea or urine problems. Reports -: she has been able to eat some. Denies any chest pain. - Objective Resuscitation Status - Order Detail: 02/17/19 04:10 Resuscitation Status Routine Resuscitation Status: FULL: Full Resuscitation Vital Signs & Weight: Vital Signs (12 hours) Temp Pulse Resp BP Pulse Ox 02/22/19 03:55 97.6 F 95 16 92/57 L 99 02/22/19 00:00 103 H 22 H 82/57 L 97 02/21/19 20:18 98.5 F 106 H 22 H 100/61 97 Weight Admit Weight 122 lb 14.4 oz Weight 128 lb 6.4 oz I&O: 02/21/19 02/22/19 02/23/19 06:59 06:59 06:59 Intake Total 600 1320 Output Total 250 1 Balance 350 1319 Result Diagrams: 02/22/19 04:58 02/22/19 04:58 EKG Reviewed by me: Yes (3 episodes of VT between 21:00-04:00 today) Phys Exam - Physical Examination Constitutional: NAD Respiratory: no wheezing, no rales, no rhonchi, clear to auscultation bilateral Cardiovascular: RRR, no significant murmur Gastrointestinal: soft, non-tender, no distention, positive bowel sounds Musculoskeletal: no edema Neurological: non-focal, moves all 4 limbs Deviation from normal: blunted affect Dx/Plan (1) Cardiomyopathy Code(s): I42.9 - CARDIOMYOPATHY, UNSPECIFIED Status: Chronic (2) History of recent stroke Code(s): Z86.73 - PRSNL HX OF TIA (TIA), AND CEREB INFRC W/O RESID DEFICITS Status: Acute (3) Atrial fibrillation Code(s): I48.91 - UNSPECIFIED ATRIAL FIBRILLATION Status: Chronic Qualifiers: Atrial fibrillation type: paroxysmal Qualified Code(s): I48.0 - Paroxysmal atrial fibrillation (4) Gastritis Code(s): K29.70 - GASTRITIS, UNSPECIFIED, WITHOUT BLEEDING Status: Chronic (5) Anemia Code(s): D64.9 - ANEMIA, UNSPECIFIED Status: Chronic (6) BONNIE (acute kidney injury) Code(s): N17.9 - ACUTE KIDNEY FAILURE, UNSPECIFIED Status: Acute - Plan * VT with hypomagnesemia - currently receiving IV mag. Recheck level at 12:00 and continue PO replacement * * Persistent n/v - appreciate GI evaluation * Likely related to recent stroke - no signs of active bleeding, only evolving stroke on CT scan * Abd US reviewed and gallbladder wall thickening with sludge and normal hepatobiliary scan * * continue to IV protonix for now - anticipate changing back to PO when pt with consistent PO intake * hold on H Pylori tx - can be done as an outpatient, not considered the source of n/v * continue reglan four times daily - currently at 5 mg/dose * continue heart healthy diet with fluid restriction * BONNIE - stable and likely secondary to both cardiorenal syndrome and poor PO intake * PO intake improved * spironolactone, lasix and entresto placed on hold yesterday due to slight worsening of creatinine. Resume per Cardiology * * Severe CM with systolic HF - appreciate Cardiology eval/tx * Resume above meds currently on hold per Cardiology. Is currently on beta- grace, corlanor. * * dvt prophy - on full anticoagulation with eliquis * gi prophy - IV PPI for now * code status full * * reviewed plan of care with patient/her mom, no questions or further needs at end of eval. * pt remains at high risk in current condition
[2019-02-22] MEDS: Metoclopramide 10 MG/10 ML UDCUP PO SCH ×4 (09:29→22:29)
[2019-02-22] MEDS: Carvedilol 3.125 MG TAB PO SCH ×2 (09:30→17:17)
[2019-02-22] MEDS: Pantoprazole 40 MG VIAL IVP SCH ×2 (09:30→22:31)
[2019-02-22] MEDS: Apixaban 5 MG TAB PO SCH ×2 (09:31→22:30)
[2019-02-22] MEDS: Ivabradine 5 MG TAB PO SCH ×2 (09:41→22:29)
--- NOTE | 2019-02-22 10:07 | PRG ---
DATE OF SERVICE: 02/22/2019 SUBJECTIVE: Ms. Tapia said she has not had vomiting up for 2 days. She just woke up. OBJECTIVE: VITAL SIGNS: Her blood pressure earlier was 90/59, now it is 100/55; pulse is 90 and sinus. LUNGS: Clear. CARDIAC: Normal S1, normal S2. ABDOMEN: Soft, nontender. EXTREMITIES: No edema. ASSESSMENT: 1. Advanced severe cardiomyopathy with congestive heart failure, systolic, acute on chronic, improved. 2. Chronic hypotension due to low cardiac output. 3. Nonsustained ventricular tachycardia. 4. Magnesium level is low. PLAN: 1. Intravenous magnesium. 2. Hold Entresto and carvedilol only if the systolic blood pressure is below 90. 3. Replete magnesium. 4. Continue Corlanor. 5. Diuretics on hold for today. Re-evaluate tomorrow. Long-term prognosis unfortunately is poor. Job ID: [id number]
--- NOTE | 2019-02-22 11:26 | PRG ---
DATE OF SERVICE: 02/19/2019 SUBJECTIVE: Ms. Zimmerman is feeling better today. She has actually been eating. She has not thrown up since yesterday. She was seen by Dr. Dennis, who made some medication changes. Talking with her, she states that the nausea and vomiting really began after stroke. She noted that as soon as when she took certain of her medicines, her blood pressure would go down. She started feeling little sick and nauseated and even dizzy. She denies any vertigo presently. I did discuss with her issues of cyclic vomiting syndrome and daily marijuana use. She notes that even when she does not smoke marijuana any longer and when she was, she was not smoking it daily. I had a long discussion about her H. pylori, explained to her again how the H. pylori will need to be treated ultimately, but it is not the cause of her nausea and gastritis associated with it should go away with pantoprazole. My fear of treating her H. pylori presently is drug regimen with 3 antibiotics, 2 of which include doxycycline and Flagyl, which tends to make people feel very ill and have a lot of abdominal pain, I feel that this would exacerbate her nausea problems at this time and I think we should hold off until those linda some before treating the H. pylori. We could treat the H. pylori gastritis with a proton pump inhibitor. MEDICATIONS: 1. Tylenol. 2. DuoNeb. 3. Xanax. 4. Eliquis 5 mg p.o. b.i.d. 5. Carvedilol 3.125 mg b.i.d. 6. Ferric gluconate IV was given today by Dr. Dennis. 7. Lasix 40 daily. 8. magnesium chloride. 9. Zofran p.r.n. 10. Protonix 40 mg IV daily. 11. Potassium chloride p.r.n. 12. Sacubitril/valsartan which is Entresto. 13. Sertraline. 14. Aldactone 12.5 mg b.i.d. OBJECTIVE: VITAL SIGNS: Temperature 98.4, pulse 112, and blood pressure 117/67. LUNGS: Clear. HEART: Regular rate and rhythm. ABDOMEN: Soft and nontender. The patient is resting in bed. She is eating about half her hamburger today. Abdomen is nontender. She is in no distress. LABORATORY DATA: Hemoglobin was 9.7 up from 9 yesterday. ASSESSMENT: 1. Recurrent vomiting, likely related to prior recent stroke or hypotension with CHF medications. Dr. Dennis made some changes in medicines today. The patient denies headache. Denies daily marijuana use, so I think cyclical vomiting syndrome is not likely etiology. It has been changed to p.o. medicines. IV fluids were stopped. She has been tolerating this. 2. Severe cardiomyopathy with previous defibrillator. 3. Recent history of embolic stroke just few weeks ago. 4. Hematemesis with stable hemoglobin, this is likely related to some anticoagulants with a stable hemoglobin. No further hematemesis. I think she can go back her anticoagulants. The benefit outweighs the risks as that she is off this. She is at risk for another stroke, which she had a significant one just a few weeks ago. PLAN: 1. Change Protonix to p.o. Resume Eliquis and talked with Dr. Penn about that. This evening, we are going to go through the settings. 2. The patient is ready go home tomorrow. She will follow up in the office in a couple of weeks as long as we get her nausea is doing better. We will go and treat for her H. pylori at that time. In the meantime, if she still labile and her blood pressure is having some intermittent dizziness, vertigo symptoms at home and nausea, I think we just treat her with a PPI and I will treat the gastritis, and we can take another up to the future to treat the H. pylori. The patient is going to follow up with Dr. Delgado in 2 weeks. Job ID: [id number]
[2019-02-22] MEDS: Magnesium Chloride 64 MG TAB PO SCH ×2 (12:23→16:00)
[2019-02-22] MEDS: Ondansetron PF 4 MG/2 ML Vial IVP PRN ×2 (12:33→23:18)
[2019-02-22 12:42] VITALS: BMI 22.7
--- NOTE | 2019-02-22 14:09 | PDOC.PALFU ---
Palliative Care Follow-up Note Follow up with patient to discuss cardiovascular disease trajectory and poor prognosis to further identify and clarify patient goals. Patient aunt at bedside , mother to return shortly. Will follow up when patients mother is present. Confirmed with A Bojorquez RN, and Brigette OSORIO cardiology poor prognosis and limited outcomes.
--- NOTE | 2019-02-22 16:23 | PDOC.PALFU ---
Palliative Care Follow-up Note Family meeting with patient, patients mother and stepfather, aunt and uncle who are godparents for patient. Discussed Ivanas resuscitation status, and potential for outcomes if resuscitative measures are taken. Further discussed cardiovascular disease and limited options for treatment and that management of disease and accompanying symptoms are the goal. Mother states that Dr Dennis and Brigette ZABALA have both discussed resuscitation and disease trajectory with them. Family grieving news, we will continue to support the patient in identifying new goals and assist as needed.
--- NOTE | 2019-02-22 21:08 | PRG ---
DATE OF SERVICE: 02/22/2019 SUBJECTIVE: Ms. Tapia has been feeling better again today. No vomiting today. She is keeping some oral intake down. OBJECTIVE: VITAL SIGNS: Temperature 97.4, pulse 84, blood pressure 100/69. GENERAL: She is in no acute distress. Alert and oriented. LUNGS: Clear to auscultation bilaterally. HEART: Regular rate and rhythm. ABDOMEN: Soft, nontender, nondistended. Bowel sounds are present. EXTREMITIES: Trace lower extremity edema. IMPRESSION: 1. Chronic recurrent nausea and vomiting. Possibly related to the basal ganglia stroke. Endoscopy evaluation of her biliary system was negative for obvious source for symptoms. No obvious medication is causing the symptoms. She does have a history of Helicobacter pylori and we have not treated this yet, but will wait until her nausea and vomiting is better controlled. In the meantime, she will be treated with proton pump inhibitors. Delayed gastric emptying is a possibility given that she is symptomatically improved with Reglan. RECOMMENDATIONS: 1. Continue the Reglan orally. 2. Antiemetics as needed. 3. We will treat her H pylori as an outpatient in the future after she is doing better from a nausea and vomiting standpoint. Job ID: [id number]
[2019-02-23 05:42] LABS: #Basophils 0.1 thou/uL (0.0-0.2); #Eosinphils 0.1 thou/uL (0.0-0.7); #Lymphocytes 2.4 thou/uL (1.20-3.40); #Monocytes 0.9 thou/uL (0.11-0.59); #Neutrophils 4.6 thou/uL (1.40-6.50); %Basophils 0.6 % (0.0-1.0); %Lymphocytes 29.6 % (21.0-51.0); %Monocytes 11.2 % (0.0-10.0); %Neutrophils 57.7 % (42.0-75.0); Hemoglobin 9.3 g/dL (12.0-16.0); Mean Corpuscular HGB CONC 28.7 g/dL (32.0-36.0); Mean Corpuscular Volume 83.8 fL (78.0-98.0); Mean Platelet Volume 12.5 fL (7.4-10.4); Platelet Count 139 thou/uL (130-400); RBC Distribution Width 23.8 % (11.5-14.5); Red Blood Cell (RBC) Count 3.88 mill/uL (4.20-5.40)
[2019-02-23 05:54] LABS: Anion Gap 16 mmol/L (10-20); BUN (Urea Nitrogen) 17 mg/dL (7.0-18.7); Calc. Creatinine Clearance 54 mL/min (70-130); Calcium 8.6 mg/dL (7.8-10.44); Carbon Dioxide 20 mmol/L (22-29); Chloride 98 mmol/L (98-107); Estimated GFR-MDRD 53; Glucose 95 mg/dL (70-105); Magnesium 1.8 mg/dL (1.6-2.6); Potassium 3.5 mmol/L (3.5-5.1); Sodium 130 mmol/L (136-145)
[2019-02-23] MEDS ORDERED: guaiFENesin ER 600 MG TAB PO PRN (07:40)
--- NOTE | 2019-02-23 07:42 | PDOC.PN ---
- Subjective Encounter Start Date: 02/23/19 (f/u n/v) Encounter Start Time: 07:41 Subjective: Pt denies any n/v. Reports some cough productive of mucous with -: small amount of blood. Some throat congestion. Denies chest pain -: shortness of breath. - Objective Resuscitation Status - Order Detail: 02/17/19 04:10 Resuscitation Status Routine Resuscitation Status: FULL: Full Resuscitation Vital Signs & Weight: Vital Signs (12 hours) Temp Pulse Resp BP Pulse Ox 02/23/19 07:36 99.1 F 90 18 99/55 L 100 02/23/19 07:02 97 02/23/19 04:00 99.3 F 85 18 94/54 L 97 02/22/19 20:00 97.5 F L 87 22 H 100/64 98 Weight Admit Weight 122 lb 14.4 oz Weight 128 lb 6.4 oz I&O: 02/22/19 02/23/19 02/24/19 06:59 06:59 06:59 Intake Total 1320 450 Output Total 1 250 Balance 1319 200 Result Diagrams: 02/23/19 05:18 02/23/19 05:18 EKG Reviewed by me: Yes (7 beats of VT at 00;24 this morning, o/w paced and sinus 80's) Phys Exam - Physical Examination Constitutional: NAD Respiratory: no wheezing, no rales, no rhonchi Cardiovascular: RRR, no significant murmur Gastrointestinal: soft, non-tender, no distention, positive bowel sounds trace pitting edema in lower extremities and hands Neurological: non-focal, moves all 4 limbs Dx/Plan (1) Cardiomyopathy Code(s): I42.9 - CARDIOMYOPATHY, UNSPECIFIED Status: Chronic (2) History of recent stroke Code(s): Z86.73 - PRSNL HX OF TIA (TIA), AND CEREB INFRC W/O RESID DEFICITS Status: Acute (3) Atrial fibrillation Code(s): I48.91 - UNSPECIFIED ATRIAL FIBRILLATION Status: Chronic Qualifiers: Atrial fibrillation type: paroxysmal Qualified Code(s): I48.0 - Paroxysmal atrial fibrillation (4) Gastritis Code(s): K29.70 - GASTRITIS, UNSPECIFIED, WITHOUT BLEEDING Status: Chronic (5) Anemia Code(s): D64.9 - ANEMIA, UNSPECIFIED Status: Chronic (6) BONNIE (acute kidney injury) Code(s): N17.9 - ACUTE KIDNEY FAILURE, UNSPECIFIED Status: Acute (7) Hyponatremia Code(s): E87.1 - HYPO-OSMOLALITY AND HYPONATREMIA Status: Acute - Plan * * VT nonsustained with normal mag this morning - will order an additional 1 gram with goal around 2.0. * * n/v controlled with scheduled reglan * Likely related to recent stroke - no signs of active bleeding, only evolving stroke on CT scan * Abd US reviewed and gallbladder wall thickening with sludge and normal hepatobiliary scan * * continue to IV protonix for now - anticipate changing back to PO when pt with consistent PO intake * hold on H Pylori tx - can be done as an outpatient, not considered the source of n/v * continue reglan four times daily - currently at 5 mg/dose * continue heart healthy diet with fluid restriction * BONNIE - stable and likely secondary to both cardiorenal syndrome and poor PO intake * PO intake improved * Hyponatremia - suspect related to holding lasix and volume overload - resume spironolactone and lasix and monitor renal function * * productive cough with blood - on full anticoagulation - monitor for now, control cough with guaifenesin and zyrtec. If persistent will plan to hold eliquis * Severe CM with systolic HF - appreciate Cardiology eval/tx * on multiple medications for this - end stage disease * appreciate Palliative care working with patient/family * * dvt prophy - on full anticoagulation with eliquis * gi prophy - IV PPI - continuing this for now - resume oral in the next day or so, holding due to n/v controlled at this time and want to introduce cardiac meds before making the change * code status full * * reviewed plan of care with patient/her mom, no questions or further needs at end of eval. * pt remains at high risk in current condition.
[2019-02-23] MEDS ORDERED: Loratadine 10 MG TAB PO SCH (08:00)
[2019-02-23] MEDS: Carvedilol 3.125 MG TAB PO SCH (09:13)
[2019-02-23] MEDS: Spironolactone 25 MG TAB PO SCH (09:14)
[2019-02-23] MEDS: Furosemide 40 MG TAB PO SCH (09:14)
[2019-02-23] MEDS: Metoclopramide 10 MG/10 ML UDCUP PO SCH ×2 (09:15→13:39)
[2019-02-23] MEDS: Pantoprazole 40 MG VIAL IVP SCH (09:15)
[2019-02-23] MEDS ORDERED: Magnesium 2 GM/50 ML 2 GM in Premix Bag 1 BAG IVPB SCH (13:30)
[2019-02-23] MEDS ORDERED: Potassium Chloride 20 MEQ TAB PO SCH (13:30)
[2019-02-23] MEDS: Apixaban 5 MG TAB PO SCH (13:38)
[2019-02-23] MEDS: Ivabradine 5 MG TAB PO SCH (13:38)
[2019-02-23] MEDS: Magnesium Chloride 64 MG TAB PO SCH (13:39)
--- NOTE | 2019-02-23 14:06 | PRG ---
DATE OF SERVICE: 02/23/2019 SUBJECTIVE: Ms. Tapia wants to go home again. The patient was about to leave against medical advice yesterday, but she finally agreed to stay another day. She wants to go home again today. OBJECTIVE: VITAL SIGNS: Her blood pressure 100/68, pulse 95. LUNGS: Clear anteriorly, laterally. CARDIAC: She is tachycardic for rest, but improved. ABDOMEN: Soft, nontender. EXTREMITIES: No edema. ASSESSMENT: 1. Advanced congestive heart failure, cardiomyopathy. 2. Nausea. This may be hepatic congestion. Her bilirubin is 1.9. 3. Renal insufficiency. Creatinine 1.45. 4. Hyponatremia. Sodium 130. PLAN: 1. She is on Entresto / twice a day. 2. Carvedilol 3.125 mg twice a day. 3. Corlanor 5 mg twice a day. 4. Lasix 40 mg a day. 5. Spironolactone 12.5 mg twice a day. 6. Long-term prognosis is likely poor unfortunately in view of her continued noncompliance. Hopefully, the patient will follow up in the office next week with us. Job ID: [id number]
--- NOTE | 2019-02-23 15:10 | PRG ---
DATE OF SERVICE: SUBJECTIVE: Ms. Tapia has continued to tolerate her solid diet pretty well. She has no abdominal pain. OBJECTIVE: VITAL SIGNS: Temperature 97.1, pulse 95, and blood pressure 100/68. GENERAL: She is in no acute distress. Alert and oriented x3. LUNGS: Clear to auscultation bilaterally. HEART: Regular rate and rhythm without murmur. ABDOMEN: Soft, nontender, and nondistended. Bowel sounds are present. EXTREMITIES: Trace lower extremity edema. IMPRESSION: 1. Chronic nausea and vomiting. Possibly related to her basal ganglia stroke. Gastroparesis is another possibility. She has had clinical improvement with metoclopramide, and she will continue this, 5 mg 3 times a day before meals. Eventually, it would be helpful to hold this medication and perform a gastric emptying scan as an outpatient. 2. History of Helicobacter pylori infection. Biopsies from her stomach confirmed Helicobacter pylori, and she has not yet been treated for this. We have been awaiting improvement in her nausea and vomiting. We will plan to treat this as an outpatient. RECOMMENDATIONS: 1. Follow up in GI clinic in 1 month. We will plan to eventually schedule a gastric emptying scan and treat her H. pylori as an outpatient. 2. Continue proton pump inhibitor orally. 3. Anticipate discharge home today. I will sign off for now. Job ID: [id number]
[2019-02-23 15:28] VITALS: BP 98/60; TEMP 98.3
[2019-02-23] MEDS ORDERED: Spironolactone 25 MG TAB PO SCH ×2 (17:00)
--- NOTE | 2019-02-24 01:24 | DIS ---
DATE OF ADMISSION: 02/17/2019 DATE OF DISCHARGE: 02/23/2019 CONSULTANTS: 1. Cardiology, Dr. Dennis. 2. Gastroenterology, Dr. Figueroa. 3. Palliative Care. MEDICATIONS: Reconciled at discharge. Changed medication; pantoprazole increased to 40 mg b.i.d. Discontinued medications are the once daily pantoprazole. New medications; 1. Corlanor 5 mg twice a day, the patient provided samples from Dr. Dennis. 2. Magnesium chloride 64 mg once daily at noon. 3. Reglan 5 mg with meals and at bedtime. 4. Guaifenesin 600 mg twice a day as needed for cough. Prescription for metoclopramide and Protonix sent electronically for one-month supply to [facility]. Medications to resume; 1. Eliquis 5 mg b.i.d. 2. Aspirin 81 mg daily. 3. Lipitor 20 mg at bedtime. 4. Carvedilol 3.125 mg b.i.d. 5. Ferrous sulfate 324 mg daily. 6. Furosemide 40 mg daily. 7. Zofran 4 mg every 8 hours as needed for nausea. 8. Entresto 24-26 one tablet b.i.d. 9. Sertraline 25 mg at bedtime. 10. Spironolactone 12.5 mg b.i.d. 11. Tramadol 50 mg every 6 hours as needed. FINAL DIAGNOSES: 1. Hematemesis, likely secondary to gastritis as well as recent stroke. 2. Acute on chronic systolic heart failure with an ejection fraction of 10% to 15%. 3. Acute blood loss anemia. 4. Tachyarrhythmia. 5. Hyponatremia, likely secondary to heart failure. SECONDARY DIAGNOSES: 1. Recent ischemic stroke. 2. Dyslipidemia. 3. Helicobacter pylori gastritis. 4. Paroxysmal atrial fibrillation, on anticoagulation. 5. Right internal carotid artery disease. 6. Hypokalemia. 7. Mild protein-calorie malnutrition. 8. Chronic kidney disease, now stage 3 and likely secondary to cardiorenal syndrome. HISTORY OF PRESENT ILLNESS: Ms. Tapia is a 24-year-old female with a complicated medical history as noted with the diagnoses above, who presented to the emergency room with the complaint of nausea, vomiting with blood-tinged emesis. The patient in the emergency room found to have a hemoglobin of 7.8 when previously she was at 9.6. She received IV Reglan, IV Protonix, and was admitted for further evaluation. HOSPITAL COURSE: The patient was evaluated by GI who has followed her throughout this hospitalization. She has known H pylori gastritis and this is not thought to be the source of her symptoms. She remained on a PPI throughout this hospitalization initially for p.o. and then changed back to IV when the nausea and vomiting persisted. With re-evaluation, it is thought that the recent stroke is responsible for the nausea and vomiting, and symptomatically, this was managed with scheduled Reglan 5 mg with meals and at bedtime. The patient has done well with the addition of the Reglan and is tolerating p.o. The patient has a persistent tachycardia. She was started on Corlanor by Dr. Dennis. She was kept on her usual heart failure medications. Her creatinine did climb slightly and the Entresto, spironolactone, furosemide were all held. As patient was tolerating p.o., the medications were added back. She is tolerating these medications and will need outpatient followup. The patient was evaluated by Palliative Care for end-stage heart failure, with a long history of a low ejection fraction. It has been arranged to have [facility] see her for 3 visits as an outpatient, and discussion of hospice care was initiated here through Palliative Care. The patient is not considered to be a transplant candidate given the comorbidities, history of nonadherence to medication, as well as recent stroke. The patient did have some episodes of ventricular tachycardia, and she received IV magnesium. Today, her magnesium level IV is back to normal, however, she did have 7 beats overnight. She does have an AICD in place and it did not fire during this hospitalization. Given the resolution of nausea, vomiting, no further hematemesis, the stability of her hemoglobin which is 9.3 today, the patient has been cleared for discharge by Cardiology. She also desires to go home. In the outpatient setting, the H pylori will be addressed. Medications were not initiated here due to concern that this would worsen the nausea and vomiting that the patient presented with, and that this is not considered the source of the nausea, vomiting. Part of the evaluation by GI included an abdominal ultrasound which identified a thickened gallbladder with some likely sludge. To further characterize this, a hepatobiliary scan was performed. This study is normal. The patient is considered a poor surgical candidate given the end-stage heart failure, as well as resolution of her symptoms, and Surgery was not consulted during this admission. PHYSICAL EXAMINATION: Please see note on the chart. [facility] FINDINGS AND TEST RESULTS: CBC; 8.0, 9.3, 32.5, 139, the lowest her hemoglobin reached here during this admission was 8.8. Chemistry; 130, 3.5, 98, 20, 17, 1.45, 95 with a magnesium today of 1.8. T bilirubin 1.9, D bilirubin 1.0, AST 16, ALT 13, alkaline phosphatase 59, total protein 5.7, albumin 3.2. test was negative. On admission, BNP was 3858. Troponins negative x3. Hepatobiliary scan showed normal gallbladder ejection fraction at 55% and a normal study. Abdominal ultrasound on February 21 showed gallbladder abnormal with thickened wall and echogenic sludge. Brain CT on February 20, evolving right basal ganglia infarct as described above compared to the study on January 07. Chest x-ray on February 16 shows left-sided AICD, heart enlarged, lungs well expanded without acute abnormality. DIET: Heart healthy, fluid restricted. ACTIVITY: As tolerated. FOLLOWUP: 1. With Dr. Dennis to follow up with a nurse practitioner, Brigette, please call to schedule. 2. Follow up with Dr. Delgado in 2 to 3 weeks. Please call to schedule a followup. 3. Follow up with the [facility] to review this hospitalization and address any health needs. 4. [facility] will follow up with providing palliative services at home. CODE STATUS: Full. DISCHARGE DISPOSITION: Home with plan for [facility]. Reviewed this with the patient as far as medications, the importance of followup , and the seek care precautions. She demonstrates understanding. TIME SPENT: Total time coordinating discharge is 35 minutes. Job ID: [id number] MTDD
== END 2019-02-23 18:05 | disposition home health service (06) | DRG 56 ==
LOC: ERS 23:21 → OBSVTOIN 02-17 01:20 → 2SW 02-17 01:20 → 2NO 02-20 15:14
PROVIDERS: ADMIT Family Medicine; ATTEND Family Medicine
DX: I69.398 Other sequelae of cerebral infarction (principal); I50.23 Acute on chronic systolic (congestive) heart failure; K29.71 Gastritis, unspecified, with bleeding; I13.0 Hypertensive heart and chronic kidney disease with heart failure and stage 1 through stage 4 chronic kidney disease, or unspecified chronic kidney disease; D62 Acute posthemorrhagic anemia; E87.1 Hypo-osmolality and hyponatremia; E44.1 Mild protein-calorie malnutrition; Z68.1 Body mass index [BMI] 19.9 or less, adult; N17.9 Acute kidney failure, unspecified; O99.43 Diseases of the circulatory system complicating the puerperium; I42.9 Cardiomyopathy, unspecified; N18.3 Chronic kidney disease, stage 3 (moderate); E78.5 Hyperlipidemia, unspecified; I25.10 Atherosclerotic heart disease of native coronary artery without angina pectoris; D63.1 Anemia in chronic kidney disease; E87.6 Hypokalemia; B96.81 Helicobacter pylori [H. pylori] as the cause of diseases classified elsewhere; E83.42 Hypomagnesemia; I48.0 Paroxysmal atrial fibrillation; Z79.01 Long term (current) use of anticoagulants; Z98.51 Tubal ligation status; Z95.810 Presence of automatic (implantable) cardiac defibrillator
CPT/HCPCS: 36415; 70450; 71045; 76700; 78227; 80048; 80053; 80069; 80076; 82550; 82728; 83540; 83690; 83735; 83880; 84132; 84484; 84703; 85007; 85014; 85018; 85025; 85027; 85049; 93005; 93010; 94640; 96361; 96365; 96375; A9537; C9113; J1940; J2405; J2765; J2916; J3475; J3490; J7050; J7620

== ENCOUNTER 2019-03-09 18:30 | Inpatient (IN) | payer MEDICAID ==
[2019-03-09] MEDS ORDERED: Ondansetron PF 4 MG/2 ML Vial ONE (19:31)
[2019-03-09] MEDS ORDERED: Morphine 4 MG/ML VIAL ONE (19:31)
[2019-03-09 19:32] LABS: BHCG - Serum Negative (NEGATIVE); Pregs Control Background? CLEAR/WHITE (CLR/WHITE); Pregs Control Bar Appear? YES (CONTROL BAR)
[2019-03-09 19:40] LABS: #Basophils 0.1 thou/uL (0.0-0.2); #Eosinphils 0.1 thou/uL (0.0-0.7); #Lymphocytes 2.3 thou/uL (1.20-3.40); #Monocytes 0.4 thou/uL (0.11-0.59); #Neutrophils 4.6 thou/uL (1.40-6.50); %Basophils 1.3 % (0.0-1.0); %Lymphocytes 30.7 % (21.0-51.0); %Monocytes 5.2 % (0.0-10.0); %Neutrophils 61.9 % (42.0-75.0); Hemoglobin 13.3 g/dL (12.0-16.0); Mean Corpuscular HGB CONC 29.5 g/dL (32.0-36.0); Mean Corpuscular Volume 88.1 fL (78.0-98.0); Mean Platelet Volume 11.6 fL (7.4-10.4); Platelet Count 196 thou/uL (130-400); RBC Distribution Width 25.5 % (11.5-14.5); Red Blood Cell (RBC) Count 5.12 mill/uL (4.20-5.40); White Blood Cell (WBC) Count 7.4 thou/uL (4.8-10.8)
[2019-03-09 19:49] LABS: ALT (SGPT) 14 U/L (8-55); AST (SGOT) 30 U/L (5-34); Alkaline Phosphatase 65 U/L (40-150); Anion Gap 20 mmol/L (10-20); BUN (Urea Nitrogen) 13 mg/dL (7.0-18.7); Bilirubin, Total 3.2 mg/dL (0.2-1.2); Calc. Creatinine Clearance 0 mL/min (70-130); Carbon Dioxide 24 mmol/L (22-29); Chloride 97 mmol/L (98-107); Estimated GFR-MDRD 73; Globulin 3.5 g/dL (2.4-3.5); Glucose 83 mg/dL (70-105); Potassium 3.9 mmol/L (3.5-5.1); Protein, Total 7.5 g/dL (6.0-8.3); Sodium 137 mmol/L (136-145)
[2019-03-09 19:58] LABS: Anisocytosis MODERATE=16-30 cells (100X) (0-5/hpf); Burr Cells SLIGHT = 2-5 cells (100X) (0-1/hpf); Hypochromia SLIGHT = 6-15 cells (100X) (0-5/hpf); MDiff Complete? YES; Ovalocytes SLIGHT = 2-5 cells (100X) (0-1/hpf); Platelet Morphology Comment Appears Adequate; Poikilocytosis SLIGHT = 6-15 cells (100X) (0-5/hpf); Polychromasia SLIGHT = 2-3 cells (100X) (0-2/hpf); Schistocytes SLIGHT = 2-5 cells (100X) (0-1/hpf); Target Cells SLIGHT = 2-5 cells (100X) (0-1/hpf); Tear Drops SLIGHT = 2-5 cells (100X) (0-1/hpf)
[2019-03-09 20:05] LABS: CKMB 0.6 ng/mL (0-6.6)
[2019-03-09 20:20] LABS: Lipase 7 U/L (8-78)
[2019-03-09] MEDS ORDERED: Aspirin 325 MG TAB ONE (20:22)
--- NOTE | 2019-03-09 20:41 | RAD ---
FRONTAL RADIOGRAPH CHEST: 03/09/19 COMPARISON: 02/16/19. HISTORY: Chest pain. FINDINGS: Prominence of the cardiac silhouette. Nonspecific hazy increased density is noted within the left mayo g base partially obscuring the left hemidiaphragm, new. No pneumothorax. Stable dual lead transvenous AICD. IMPRESSION: Stable prominence of the cardiac silhouette. New nonspecific hazy increased density is noted within t he left base which may signify volume loss or infectious pneumonitis/aspiration. Follow-up imaging fo shannan treatment recommended. POS: OFF
[2019-03-09 22:14] LABS: Troponin I 0.033 ng/mL (< 0.028)
[2019-03-09] MEDS ORDERED: Acetaminophen 325 MG TAB PO PRN (22:38)
[2019-03-09] MEDS ORDERED: Acetaminophen 650 MG Suppository PR PRN (22:38)
--- NOTE | 2019-03-10 01:42 | HP ---
PRIMARY CARE PHYSICIAN: Tootie. CONSULTANTS: 1. Gem Stone Cutter, Dr. Dennis. 2. Division Sales Manager, Dr. Delgado. 3. ENT, Dr. Correa. CHIEF COMPLAINT: Chest pain. HISTORY OF PRESENT ILLNESS: Ms. Tapia is a 24-year-old female who reported to the emergency room after having chest pain 2 hours prior with some mild abdominal swelling. Reports that she has some really "bad body pain." Past medical history pertinent for CHF. Last echocardiogram in January of this year showed an EF of 10% to 15%. She was recently diagnosed with H pylori, evaluated by GI. She was initially treated with PPI and then I added Reglan 5 mg with meals and at bedtime, and she did well with that here. She reports that since she was sent home that she has been unable to keep anything down other than broth and liquids. She reports that she tried some chicken noodle soup will keep it down for a while and then eventually does throw it back up. While she was here earlier in the month, she was day of admission is 02/17/2019, and she was discharged on 02/23/2019. She had persistent tachycardia. She was started on Corlanor by Dr. Dennis and kept on her heart failure medications. She reports she has not been able to take any of her medications. She does take them, but she states she usually vomits them back up. The patient does have an AICD. The patient also had ultrasound of right upper quadrant and had hepatobiliary scan nuclear medicine which was within normal limits. The patient does report that she has seen Dr. Dennis, Dr. Delgado, and Dr. Correa within the last 2 weeks. Reports that she was supposed to have some blood work done for her thyroid, but has not had that done yet. She reports that Dr. Dennis is aware that she has not been able to tolerate her cardiac medications. In the emergency room here, she has had initial troponin was in the indeterminate range at 0.053. BNP was 1722, which is an improvement on the last time it was checked on 02/16/2019 and it was at that time of 3858.1. Lipase was 7. Total bilirubin is 3.2. Other lab values are unremarkable. Chest x-ray in the ER today showed a stable prominence of the cardiac silhouette, new nonspecific hazy increased density noted at the left base which may signify volume loss or infectious pneumonitis or aspiration. Followup imaging recommended. The patient admitted to the observation unit for further management. PAST MEDICAL HISTORY: 1. Acute on chronic systolic congestive heart failure with EF of 10% to 15%, cardiomyopathy as above. 2. Chronic anemia. 3. Chronic gastritis. 4. Dyslipidemia. 5. Chronic anticoagulation with Eliquis. 6. History of paroxysmal atrial fibrillation. 7. Ischemic CVA with right internal carotid artery disease. 8. History of noncompliance. PAST SURGICAL HISTORY: 1. Tonsillectomy. 2. Adenoidectomy. 3. Bilateral tubal ligation. 4. AICD placement. ALLERGIES: NONE. FAMILY HISTORY: No inheritable diseases per family report. SOCIAL HISTORY: The patient reports that she previously smoked 3 to 5 cigarettes per day. Denies any alcohol or illicit drug use. Lives with her mother and 2 children in the area. CURRENT MEDICATION LIST: 1. Eliquis 5 mg p.o. b.i.d. 2. Carvedilol 3.125 mg p.o. b.i.d. 3. Furosemide 40 mg p.o. daily. 4. Corlanor 5 mg p.o. daily. 5. Reglan 5 mL p.o. a.c. and at bedtime. 6. Sertraline 25 mg p.o. at bedtime. 7. Zolpidem 10 mg p.o. at bedtime. 8. Aspirin 81 mg p.o. daily. 9. Protonix 40 mg p.o. b.i.d. 10. Entresto one p.o. b.i.d. REVIEW OF SYSTEMS: Reports nausea and epigastric tenderness. Reports chest pain, intermittent on the left side. Denies any shortness of breath. Denies any fever or chills. Does report some nausea and vomiting. Denies diarrhea. Denies any abdominal pain per se other than the epigastric. All other systems are reviewed and are negative unless mentioned in the HPI. PHYSICAL EXAMINATION: VITAL SIGNS: Temperature is 97.5, pulse is 107, respirations are 19, pO2 sats are 97% on room air, blood pressure is 113/82. CONSTITUTIONAL: The patient is in no apparent distress, appears pain free, is alert and oriented to person, place, and time. HEENT: Head is atraumatic and normocephalic. Eyes; eyelids are normal to inspection. Pupils are equally round and reactive to light. ENT; mouth exam is normal. Mucous membranes are moist. NECK: Normal range of motion. Trachea is midline. RESPIRATORY/CHEST: Breath sounds are clear. No signs of any respiratory distress. CARDIOVASCULAR: Tachycardic. Heart sounds are normal. ABDOMEN: Diffusely tender, more tender in the epigastric region than other places palpated. No rebound. No guarding. BACK: Normal inspection. Normal range of motion. No tenderness. EXTREMITIES: Upper extremities; normal range of motion. Motor strength is normal. Sensation intact. Radial pulses are normal. Lower extremities; normal range of motion. Motor strength is normal. Sensation intact. Trace edema is noted to bilateral lower extremities. NEUROLOGIC: The patient is oriented to person, place, and time. Speech is normal. SKIN: Warm, dry, normal in color. PSYCH: Has a normal affect. LABORATORY DATA: EKG interpretation in the ER shows sinus tach, beats per minute 109, occasional premature ventricular complexes, low voltage QRS, no change from EKG on 02/17/2019. PLAN AND ASSESSMENT: 1. Chest pain, it is uncertain if this pain is more related to the gastrointestinal discomfort that she has had for several weeks. While she has not been tolerating her p.o. we will ask Dr. Dennis to assist us with ideas. Related to the chest pain, EF 10% to 15% on the last echocardiogram in January of 2019. 2. Nausea, vomiting, and epigastric pain. We restarted Protonix and Reglan. We will ask Dr. Delgado to consult gives any insight. We did order some thyroid lab per family's request. 3. Tachycardia. The patient is prescribed some medications to help with persisting tachycardia. She has been unable to tolerate. We will restart them once her nausea and vomiting have improved. 4. History of acute on chronic diastolic dysfunction, this appears stable. We will trend. Restart home medications once she is p.o. tolerant. 5. The patient is already on gastrointestinal and deep venous thrombosis prophylaxis. 6. Clinical course is dependent on clinical findings. Job ID: [id number]
[2019-03-10 01:46] LABS: Troponin I 0.042 ng/mL (< 0.028)
[2019-03-10 05:38] LABS: #Basophils 0.1 thou/uL (0.0-0.2); #Eosinphils 0.1 thou/uL (0.0-0.7); #Lymphocytes 1.5 thou/uL (1.20-3.40); #Monocytes 0.6 thou/uL (0.11-0.59); #Neutrophils 4.1 thou/uL (1.40-6.50); %Eosinophils 1.3 % (0.0-10.0); %Lymphocytes 24.1 % (21.0-51.0); %Monocytes 8.7 % (0.0-10.0); %Neutrophils 64.9 % (42.0-75.0); Hemoglobin 10.9 g/dL (12.0-16.0); Mean Corpuscular HGB CONC 29.2 g/dL (32.0-36.0); Mean Corpuscular Hemoglobin 25.9 pg (27.0-31.0); Mean Corpuscular Volume 88.7 fL (78.0-98.0); Mean Platelet Volume 12.3 fL (7.4-10.4); Platelet Count 165 thou/uL (130-400); Platelet Count 167 thou/uL (130-400); RBC Distribution Width 24.7 % (11.5-14.5); White Blood Cell (WBC) Count 6.3 thou/uL (4.8-10.8)
[2019-03-10 05:48] LABS: Anion Gap 14 mmol/L (10-20); BUN (Urea Nitrogen) 14 mg/dL (7.0-18.7); Calc. Creatinine Clearance 75 mL/min (70-130); Calcium 8.8 mg/dL (7.8-10.44); Carbon Dioxide 24 mmol/L (22-29); Chloride 99 mmol/L (98-107); Estimated GFR-MDRD 81; Glucose 91 mg/dL (70-105); Potassium 3.4 mmol/L (3.5-5.1); Sodium 134 mmol/L (136-145)
[2019-03-10 06:09] LABS: Free T4 (Free Thyroxine) 1.42 ng/dL (0.70-1.48); Thyroid Stimulating Hormone 1.4163 uIU/mL (0.35-4.94)
[2019-03-10] MEDS: Metoclopramide 10 MG/10 ML UDCUP PO SCH ×2 (09:00→12:13)
[2019-03-10] MEDS ORDERED: Apixaban 5 MG TAB PO SCH (09:00)
[2019-03-10] MEDS ORDERED: Carvedilol 3.125 MG TAB PO SCH (09:00)
--- NOTE | 2019-03-10 09:26 | RAD ---
CHEST 2 VIEWS: Date: 03/10/19 COMPARISON: 03/09/19 study. HISTORY: Chest pain. Respiratory distress. FINDINGS: Heart size is enlarged. A defibrillator device is present. There has been development of increasing o pacification of the right base suggesting infiltrate. The left basilar changes are stable. IMPRESSION: Development of a right basilar infiltrative appearing process. POS: [facility]
--- NOTE | 2019-03-10 12:38 | CON ---
DATE OF CONSULTATION: 03/10/2019 REQUESTING PROVIDER: DEVON Diego. REASON FOR CONSULTATION: Persistent nausea and vomiting. HISTORY OF PRESENT ILLNESS: Isabella Tapia is a 24-year-old woman followed by my GI colleague, Dr. Lg Delgado. She has had several recent hospitalizations here with GI evaluation. Briefly, she has a history of cardiomyopathy with subsequent congestive heart failure and ejection fraction of 10% to 15%. She has a defibrillator in place. She also unfortunately recently suffered a basal ganglia stroke and was hospitalized in [place] for that. She has been dealing with persistent vomiting to some extent ever since then. She has had a fairly extensive recent GI workup. She had an EGD within the past couple of months, which demonstrated normal esophagus but some erythematous gastritis. Biopsies were positive for H. pylori. She has been noted to have some elevation in total bilirubin. She has had abdominal ultrasound essentially negative for cholecystitis or biliary dilation, and she also had a HIDA scan during her recent admission, which was also negative. Her persistent nausea is felt to be probably secondary to her recent basal ganglia stroke. During her last hospitalization, she was started on Reglan and did seem to have significant symptomatic improvement with this. She was discharged on oral Reglan. However, the patient reports over the past couple of weeks she has continued to have nausea and really unable to keep down any of her medications including her cardiac medications or her Reglan. She does report being able to keep down fluids, but not too much in terms of solid food. She has continued to have some overall generalized pains in the chest and in the upper abdomen, which have not worsened. Upon presentation here, she was found to have stable mild troponin elevation, and BNP elevation up to 1722. Chest x-ray initially showed just cardiomegaly, but repeat chest x-ray this morning does demonstrate a right basilar infiltrate as well. PAST MEDICAL HISTORY: 1. Acute on chronic systolic congestive heart failure with ejection fraction 10 % to 15%, secondary to cardiomyopathy. 2. Chronic anemia. 3. H. pylori gastritis. 4. Dyslipidemia. 5. Chronic anticoagulation with Eliquis. 6. History of paroxysmal atrial fibrillation. 7. Ischemic CVA with right internal carotid artery disease. 8. Tonsillectomy. 9. Adenoidectomy. 10. AICD placement. 11. Bilateral tubal ligation. ALLERGIES: NONE. FAMILY HISTORY: Noncontributory. SOCIAL HISTORY: She is a former smoker. No alcohol or drug abuse. Lives with her mother and 2 children. OUTPATIENT MEDICATIONS: 1. Eliquis 5 mg p.o. b.i.d. 2. Coreg 3.125 mg p.o. b.i.d. 3. Lasix 40 mg daily. 4. Corlanor 5 mg daily. 5. Reglan p.o. twice daily. 6. Sertraline 25 mg p.o. at bedtime. 7. Zolpidem 10 mg p.o. at bedtime. 8. Aspirin 81 mg daily. 9. Protonix 40 mg p.o. b.i.d. 10. Entresto b.i.d. REVIEW OF SYSTEMS: Full review of systems including constitutional; head, eyes, ears, nose, throat; GI; ; cardiovascular; respiratory; musculoskeletal; neurologic systems are negative except as noted in the HPI. PHYSICAL EXAMINATION: VITAL SIGNS: Temperature 97.3, pulse 106, blood pressure 102/72, and 96% oxygen saturation on room air. GENERAL: A 24-year-old woman, lying in bed comfortably, in no acute distress. SKIN: No jaundice. No rashes were palpable. EYES: No scleral icterus. Extraocular movements intact. ENT: Mucous membranes moist. No oral lesions. LYMPH: No submandibular or supraclavicular lymphadenopathy. THYROID: Nontender to palpation. MENTAL: She has a flat affect. She is able to answer questions appropriately. HEART: Regular rate and rhythm. LUNGS: No respiratory distress. Clear to auscultation bilaterally. No wheezing appreciated. EXTREMITIES: No peripheral edema. ABDOMEN: Bowel sounds are present. Soft. Endorses tenderness to palpation throughout the abdomen, but no guarding or rebound tenderness. NEUROLOGIC: Cranial nerves 2 through 12 intact bilaterally. LABORATORY STUDIES: Hemoglobin 10.9, WBC 6.3, platelets 165. Sodium 134, potassium 3.4, BUN 14, creatinine 1.00, glucose 91. BNP 1722.5. test negative. TSH normal at 1.41. Troponin 0.04. Lipase only 7, total bilirubin 3.2, otherwise normal LFTs with alkaline phosphatase 65, AST 30, ALT 14, and albumin 4.0. IMAGING STUDIES: Chest x-ray from this morning shows cardiomegaly with defibrillator in place and there is development of a right basilar infiltrate. ASSESSMENT AND PLAN: 1. Persistent nausea and vomiting. 2. Recent basal ganglia stroke. 3. Congestive heart failure with ejection fraction 10% to 15%. 4. Possible right-sided pneumonia. The patient has had fairly extensive GI specific investigations as detailed above. I still think it most likely that her nausea is a consequence of her recent stroke. She did have good response to Reglan during previous hospitalization, and I wonder if she is just not able to absorb enough to actually counteract her symptoms. We will go ahead and switch the Reglan to IV today and see how she does. We will put her on a clear liquid diet, which can hopefully be advanced as tolerated. With regard to her Helicobacter pylori infection, I agree with the plan to hold the antibiotics as part of triple therapy for now, but get this treated in the near future once her nausea issues have overall improved. Continue the twice daily PPI. Thank you for the consultation. Please call anytime with questions or concerns. Job ID: [id number] LEANN
[2019-03-10] MEDS ORDERED: traMADol HCl 50 MG TAB PO PRN (12:58)
[2019-03-10] MEDS: Metoclopramide HCl 10 MG/2 ML VIAL IVP SCH ×2 (13:07→21:43)
[2019-03-10 15:51] VITALS: BP 112/72
[2019-03-10] MEDS ORDERED: Azithromycin 500 MG in Sodium Chloride 0.9% 250 ML 250 ML IVPB SCH (17:00)
[2019-03-10] MEDS ORDERED: Lorazepam 2 MG/ML VIAL ONE (17:44)
[2019-03-10] MEDS ORDERED: cefTRIAXone\\ROCEPHIN 1 GM in Sodium Chloride 0.9% 100 ML IVPB SCH (18:00)
[2019-03-10] MEDS ORDERED: Sodium Chloride 0.9% 500 ML IV SCH (18:00)
[2019-03-10 18:03] LABS: Actual Bicarbonate (HCO3a) 10.1 mEq/L (22-28); Base Excess (BEa) -15.5 mEq/L (-2.0 to +3.0); Calcium, Ionized 1.11 mmol/L (1.12-1.30); Carboxyhemoglobin (COHb) 1.6 gm% (0.0-3.0); Hemoglobin (Hb) 12.4 g/dL (12.0-16.0); O2 Tension (PaO2) 404.5 mmHg (80.0-100.0); Potassium - ABG Lab 4.09 mmol/L (3.70-5.30)
[2019-03-10 18:09] LABS: pH, Arterial 7.24 (7.35-7.45)
[2019-03-10 18:10] LABS: Puncture Site LRA
[2019-03-10 18:44] LABS: Actual Bicarbonate (HCO3a) 12.2 mEq/L (22-28); Base Excess (BEa) -11.2 mEq/L (-2.0 to +3.0); Calcium, Ionized 0.83 mmol/L (1.12-1.30); Carboxyhemoglobin (COHb) 1.2 gm% (0.0-3.0); Hemoglobin (Hb) 8.9 g/dL (12.0-16.0); O2 Tension (PaO2) 81.1 mmHg (80.0-100.0); Potassium - ABG Lab 2.66 mmol/L (3.70-5.30); pH, Arterial 7.39 (7.35-7.45)
[2019-03-10 18:51] LABS: ALV-art Gradient 249.775 (0-20); CO2 Tension 20.5 mmHg (35.0-45.0); Puncture Site RBA
--- NOTE | 2019-03-10 19:02 | PRG ---
DATE OF SERVICE: 03/10/2019 SUBJECTIVE: Ms. Tapia is an unfortunate 24-year-old female with past medical history significant for cardiomyopathy with end-stage heart failure, EF estimated at 10%-15%, status post ICD, recent right basal ganglia stroke several months ago resulting in hospitalization at [facility], and several hospitalizations recently for multiple GI complaints including nausea, vomiting, abdominal pain, who presented to the hospital yesterday evening with complaints of persistent nausea, vomiting, and inability to take her oral medications. The patient was admitted to the observation unit. She yesterday had complained of some intermittent chest discomfort and abdominal pain. At the time of my interview this morning, the patient had complained of some neck pain from "crick in her neck from sleeping wrong," otherwise she had no complaints. No fever or chills. The patient was afebrile. No complaints of chest pain or shortness of breath. Dr. Patton saw the patient this morning and advised IV Reglan, and advancing diet as tolerated. Per nursing staff, she was tolerating a clear diet well along with her oral medication. Right lower lobe infiltrate was noted on her chest x-ray, and given her comorbidities and risk factors, empiric antibiotics were started for community-acquired pneumonia. Later in the afternoon, jose Doe was called after her nurse witnessed what appeared to be tonic-clonic seizure activity and some contracture. The patient was not responding. at that time, a code green and eventually code blue was called. The patient was intubated and taken to the ICU. Patient did have a pulse on leaving the observation unit. OBJECTIVE: VITAL SIGNS: Last blood pressure reading on the floor was 112/72, pulse was 100, respirations were 16, O2 saturation was 98% on room air. The patient has been afebrile at the time of my physical exam around 9:00 a.m. GENERAL: The patient was awake, alert, and oriented and answering questions appropriately this morning. No acute distress. CV: S1 and S2. Mildly tachycardic. No appreciable murmurs, rubs, or gallops. LUNGS: Respiratory rate is regular, mildly diminished at the bases, otherwise clear. ABDOMEN: Positive bowel sounds. EXTREMITIES: Trace edema. LABORATORY DATA: White blood cell count 6.3, hemoglobin 10.9, hematocrit 36.4, platelets are 165. Sodium 134, potassium 3.4, chloride 99, carbon dioxide 24, creatinine was 1, GFR was 81. ASSESSMENT: 1. Tonic-clonic seizure activity and acute respiratory failure resulting in intubation. 2. Recent right basal ganglia cerebrovascular accident, ischemic. 3. End-stage cardiomyopathy, ejection fraction 10%, status post implantable cardioverter-defibrillator. 4. History of persistent nausea and vomiting with inability to tolerate her oral medications. 5. Right lower lobe infiltrate on chest x-ray. 6. Known history of sinus tachycardia, previously on Corlanor. 7. Known non-compliance with medical therapy, which has deemed her not an appropriate candidate for LVAD vs transplant in the past PLAN: At this time, I have discussed the case with Dr. Martinez, my supervising physician. The patient has been transferred to the ICU for further care. Dr. Tripp has been informed and is on the unit. Given her seizure activity, Dr. Martinez has also advised for neurology consult. Overall, the patient has numerous comorbidities and her prognosis is poor given her end stage cardiomyopathy. This case was also discussed with the patient's primary metal building assembler, Dr. Dennis. Job ID: [id number] [facility]
[2019-03-10] MEDS ORDERED: Ivabradine 5 MG TAB PO SCH (21:00)
[2019-03-10] MEDS ORDERED: Sodium Chloride 0.9% 1,000 ML IV SCH (21:15)
[2019-03-10] MEDS: EPINEPHrine 4 MG in Dextrose 5% in Water 250 ML IV SCH (21:36)
--- NOTE | 2019-03-10 22:44 | CON ---
DATE OF CONSULTATION: HISTORY OF PRESENT ILLNESS: Ms. Tapia is a 24-year-old woman with history of cardiomyopathy and noncompliance, admitted with nausea. Ms. Tapia has a long cardiac history. This is outlined in the chart with cardiomyopathy with noncompliance. She was brought to the hospital today with nausea. During the course in the afternoon, she has become unresponsive and has required intubation and ventilation. She is now in the intensive care unit with extremely low blood pressure. REVIEW OF SYSTEMS: Not obtainable. PHYSICAL EXAMINATION: VITAL SIGNS: Blood pressure is not obtainable. Pulse is in the 130s, it is sinus. LUNGS: Clear anteriorly and laterally. CARDIAC: She is tachycardic. No murmur, rub, or gallop. ABDOMEN: Soft, nontender. EXTREMITIES: There is no edema. IMAGING: Chest x-ray is pending. Arterial blood gas, pH 7.24. The rhythm strip shows sinus tachycardia. ASSESSMENT: 1. Severe cardiomyopathy. 2. Unfortunately, a history of noncompliance. PLAN: Pt is on intravenous epinephrine, arterial line is going to be placed. Prognosis is grim. Job ID: [id number] [facility]
[2019-03-10 22:50] VITALS: BMI 23.3
[2019-03-11 00:38] VITALS: TEMP 93.7
[2019-03-11] MEDS: Metoclopramide HCl 10 MG/2 ML VIAL IVP SCH (00:59)
[2019-03-11] MEDS: EPINEPHrine 4 MG in Dextrose 5% in Water 250 ML IV SCH ×2 (01:19→04:50)
[2019-03-11] MEDS ORDERED: Fentanyl BOLUS 250 ML IVPB PRN (02:44)
[2019-03-11] MEDS ORDERED: fentaNYL Citrate/PF 2,000 MCG in Sodium Chloride 0.9% 60 ML IV SCH (02:44)
--- NOTE | 2019-03-11 03:19 | CON ---
DATE OF CONSULTATION: HISTORY OF PRESENT ILLNESS: Ms. Tapia is an unfortunate 24-year-old female. The history is obtained actually through Dr. Dennis since he has cared for her for quite some time. She has a nonischemic cardiomyopathy with an ejection fraction at 10% to 15%. Unfortunately, she has been noncompliant with staying on medication. She does have a defibrillator in place. She is supposed to be anticoagulated, but came in on no medicines this admission. This admission was remarkable for complaining of abdominal swelling and aching all over on presentation per my discussion with the PA. She also had some vomiting. She is admitted to the observation unit. It is anticipated that she might be discharged, but she also had to be restarted on her medications. She was doing well all day long until this afternoon. Per my discussion with the nurse, she entered the room when she was seizing, then she became apneic and then started seizing again. She was resuscitated, intubated, and transferred to critical care unit. PAST MEDICAL HISTORY: Remarkable for: 1. 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 2. History of gastritis, recently with Helicobacter. 3. History of lipid disorder. 4. History of paroxysmal atrial fibrillation. 5. History of cerebrovascular accident. 6. History of tonsillectomy. 7. History of tubal ligation. 8. Placement of defibrillator. ALLERGIES: SHE HAS NO DRUG ALLERGIES. SOCIAL HISTORY: She is a former smoker. Denies drinking or using drugs. She has 2 children, one of whom has undergone heart transplantation apparently. MEDICATIONS: She was reportedly supposed to be on: 1. Eliquis. 2. Coreg. 3. Lasix. 4. Corlanor. 5. Reglan. 6. Sertraline. 7. Ambien. 8. Aspirin. 9. Protonix. 10. Entresto. I am told she would not take her medicines prior to admission. REVIEW OF SYSTEMS: Unobtainable. PHYSICAL EXAMINATION: GENERAL: Arrived in the ICU. She had asymmetric pupils, they were nonreactive. She had no palpable pulses. She did have barely audible heart tones. She was given a milligram of epinephrine and chest compressions were started. Eventually, she was resuscitated, but still no palpable pulses. With a Doppler, initially had pressures in the 50-60 range and then we got pressures up into the 110 range systolic using both the Doppler in the right upper extremity and right calf Dinamap blood pressure cuff. NECK: Without lymphadenopathy. LUNGS: Distant. Clear. HEART: Rapid rhythm with very distant S1 and S2. She did have ventricular tachycardia intermittently while I was in the room with her this afternoon. ABDOMEN: Soft. EXTREMITIES: Cool. DIAGNOSTIC STUDIES: Chest x-ray showed cardiomegaly and findings suggestive of a right effusion. IMPRESSION: Status post cardiac arrest today, which probably explains her seizure. With her asymmetric pupil, she could have had a thrombotic or hemorrhagic cerebrovascular accident, but in my opinion, she is way too unstable to move down for CAT scanning. Dr. Dennis has met with the family and relayed our feelings as she has an extremely poor prognosis. She is currently on a high dose epinephrine drip to get her blood pressure over 100. Duran to be replaced. She received between 2 and 3 L of pressure bag fluid resuscitation during the code. I placed a femoral line. I was unable to get an arterial line, although I tried multiple times. I never could even get a femoral artery flash. Most recent blood gas showed that with an amp of bicarb and hyperventilation, her pH was corrected to 7.39, her CO2 was 20, her PO2 was 81, that was on a rate of 30, tidal volume of 500, and FiO2 of 50%. Earlier just after the initial code, her pO2 was 404, which makes us feel that the thromboembolic event to the lungs is less likely. She also was anticoagulated this morning. TIME SPENT: Critical care time at the bedside was 95 minutes independent of the procedures. Job ID: [id number]
[2019-03-11] MEDS ORDERED: Sodium Bicarbonate 150 MEQ in Dextrose 5% in Water 1,000 ML IV SCH (07:45)
[2019-03-11 07:51] LABS: Hemoglobin 11.7 g/dL (12.0-16.0); Mean Corpuscular HGB CONC 28.2 g/dL (32.0-36.0); Mean Corpuscular Volume 92.2 fL (78.0-98.0); Mean Platelet Volume 11.4 fL (7.4-10.4); Platelet Count 169 thou/uL (130-400); RBC Distribution Width 24.7 % (11.5-14.5); Red Blood Cell (RBC) Count 4.51 mill/uL (4.20-5.40); White Blood Cell (WBC) Count 8.2 thou/uL (4.8-10.8)
[2019-03-11 07:53] LABS: Actual Bicarbonate (HCO3a) 8.6 mEq/L (22-28); Base Excess (BEa) -20.2 mEq/L (-2.0 to +3.0); CO2 Tension 30.4 mmHg (35.0-45.0); Calcium, Ionized 0.92 mmol/L (1.12-1.30); Carboxyhemoglobin (COHb) 1.3 gm% (0.0-3.0); Hemoglobin (Hb) 10.6 g/dL (12.0-16.0); O2 Tension (PaO2) 80.9 mmHg (80.0-100.0); Potassium - ABG Lab 3.65 mmol/L (3.70-5.30)
--- NOTE | 2019-03-11 07:53 | PDOC.EVN ---
Event Note - Event Note Event Note: Called to a jose carmona this morning at ~0730. Upon entering room, compressions had been initiated and pt was intubated. She has a pmhx of nonischemic cardiomyopathy. Two rounds of epinephrine given and an amp of bicarb. After ~5- 6 minutes of CPR, the pt achieved ROSC and was stablized. Her epinephrine drip was resumed.
[2019-03-11 07:56] LABS: Puncture Site LF; pH, Arterial 7.07 (7.35-7.45)
[2019-03-11 08:08] LABS: Band 14 % (5-11); Burr Cells MODERATE= 6-15 cells (100X) (0-1/hpf); Lymphocytes 51 % (21-51); MDiff Complete? YES; Monocytes 2 % (0-10); Neutrophil 32 % (42-75); Nucleated RBC 6 % (0); Platelet Morphology Comment Appears Adequate; Polychromasia SLIGHT = 2-3 cells (100X) (0-2/hpf); Reactive Lymphocytes 1 % (0-10); Schistocytes SLIGHT = 2-5 cells (100X) (0-1/hpf)
--- NOTE | 2019-03-11 08:14 | RAD ---
Chest one view HISTORY: CHF. Dyspnea. Cardiac arrest. COMPARISON: 03/10/2019. FINDINGS: Cardiac silhouette is magnified, enlarged, and partially obscured by worsening widespread b ilateral airspace disease and left pleural fluid. Mediastinum is midline. Tip of an endotracheal catheter lies immediately above the bifurcation. Nasog astric tube descends to the abdomen. Pulmonary vasculature is engorged. No evidence of pneumothorax. Defibrillator patch projects over the right lower chest. IMPRESSION: Pulmonary edema with left pleural fluid. Endotracheal catheter tip just above the level of the nayeli. Consider withdrawing 1-2 cm. Nasogastric tube in the abdomen. Tip not visualized.
--- NOTE | 2019-03-11 08:44 | PRG ---
DATE OF SERVICE: 03/10/2019 ADDENDUM: Ms. Tapia continues to do poorly. Her blood pressure is not palpable, but on Doppler, we were getting 110 systolic with high-dose epinephrine. Heart rate is 168. The patient continues to do poorly. We have corrected her acid-base balance from the pH, but she still has blood pressure as outlined above. Prognosis appears grim. Discussed with the family, unlikely to survive this episode. Job ID: [id number]
[2019-03-11] MEDS ORDERED: Furosemide 40 MG TAB PO SCH (09:00)
[2019-03-11] MEDS ORDERED: Aspirin Chewable 81 MG TAB PO SCH (09:00)
--- NOTE | 2019-03-11 09:03 | PRG ---
DATE OF SERVICE: 03/11/2019 Ms. Tapia had progressive deterioration overnight. This was despite intubation, ventilation, and epinephrine drip. Dr. Tripp indicated to me that the patient's extremities were cool last night. Chest x-ray this morning showed pulmonary edema. The patient had cardiac arrest despite all measures to resuscitate the patient. The cause of of was cardiomyopathy, end-stage. I spoke with the patient's mother this morning and other family members. I explained to the mother that she did everything she could possibly do to help Ms. Tapia. She strongly encouraged her to take medicines and keep followups. Unfortunately, Ms. Tapia had a long history of noncompliance. Job ID: [id number]
--- NOTE | 2019-03-11 09:52 | OP ---
DATE OF PROCEDURE: 03/10/2019 PROCEDURE: Arterial line placement attempt, central line placement. DESCRIPTION OF PROCEDURE: Right groin was prepped with chlorhexidine followed by Betadine. Attempts at localizing the femoral artery with a needle after localization with a Doppler signal were unsuccessful. I did localize the femoral vein, so the central line wire was inserted into the femoral vein. A small incision was made. A vein dilator was inserted and removed. A triple-lumen catheter was inserted and sewn in place x2. The J-wire was removed. The catheter was flushed, all three lumens. Good blood return was obtained from all three ports. Dressing was applied. Since this was done in a prompt fashion, Betadine was left soaking on top of the insertion point for approximately 30 minutes before this was cleaned up and a sterile dressing was applied. With multiple more attempts to localize the femoral artery, I was unsuccessful, so this procedure was terminated. Job ID: [id number]
[2019-03-11] MEDS ORDERED: EPINEPHrine 1 MG/10 ML Abboject SYRINGE ONE (11:00)
[2019-03-11] MEDS ORDERED: Sodium Bicarb 50 MEQ/50 ML Abboject 8.4% SYRINGE ONE (11:00)
[2019-03-11] MEDS ORDERED: EPINEPHrine 1 MG/ML AMP ONE (11:00)
--- NOTE | 2019-03-11 19:29 | DIS ---
DATE OF ADMISSION: 03/09/2019 DATE OF DISCHARGE: 03/11/2019 FINAL SUMMARY: DATE AND TIME OF : 03/11/2019 at 08:25 a.m. PRIMARY CAUSE OF : 1. Multiple organ failure in last 24 hours. 2. End-stage cardiomyopathy with ejection fraction of around 10%. Cardiac arrest from last 12 hours. SECONDARY CAUSE OF : History of right basal ganglia cerebrovascular accident, paroxysmal atrial fibrillation. BRIEF COURSE DURING HOSPITALIZATION: The patient came to ER on the with complaints of chest pain, abdominal swelling, and body pain. She was found to be in CHF with exacerbation. The patient has known history of cardiomyopathy with EF of around 10% to 15%. She was also noncompliant with her medications. She was initially placed under observation on telemetry and had to be upgraded to ICU due to [place]. The patient had seizure-like activity and became unresponsive on the evening. The patient went into acute respiratory failure and had to be intubated. Around 07:30 a.m. this morning, the patient again went into cardiac arrest and had to be resuscitated. The ACLS protocol was successful with the patient recovering pulse and was placed on Levophed. She had another episode of cardiac arrest an hour later. This time, the patient did not make it. I have discussed her current issues and findings with the patient's mother and at bedside. They did not want to have further resuscitation due to poor prognosis in view of [id number] resuscitation and poor ejection fraction of around 10% to 15%. Body will be released to home per hospital protocol. Job ID: [id number] MTDD
--- NOTE | 2019-03-15 17:03 | EKG ---
Test Reason : CP Blood Pressure : / mmHG Vent. Rate : 109 BPM Atrial Rate : 109 BPM P-R Int : 140 ms QRS Dur : 066 ms QT Int : 298 ms P-R-T Axes : -11 128 -04 degrees QTc Int : 401 ms Sinus tachycardia with occasional Premature ventricular complexes Low voltage QRS Anterolateral infarct , age undetermined Abnormal ECG No changes from 17-FEB-2019 Confirmed by ALFRED ADAM ([id number]), makeup editor JOSE NEWELL ([id number]) on 03/15/2019 5:03:10 PM Referred By: Confirmed By:ALFRED ADAM
--- NOTE | 2019-03-16 03:05 | PQF ---
[employer] [employer] Viewer MEHULAIDA KENNON D MD [id number] CLINICAL DOCUMENTATION CLARIFICATION FORM: POST DISCHARGE Addendum to original discharge summary date: ____ Late entry note date: __ DATE:03/16/2019 ATTN: JUAN MANCIA MD Please exercise your independent, professional judgment in responding to the clarification form. Clinical indicators are provided on the bottom of this form for your review Please check appropriate box(s): AMI TYPE: [ ] Acute Coronary Syndrome (ACS) without Acute MD meaning Unstable Angina [ ] NSTEMI (MD type I) [ ] NSTEMI due to Demand Ischemia (AMI Type II) [ ] Demand Ischemia without MD [ ] STEMI (please also specify site and arterysee below) [ ] Unable to determine In addition, please specify: Present on Admission (POA): [ ] Yes [ ] No [ ] Unable to determine CLINICAL INDICATORS - SIGNS / SYMPTOMS / LABS - Initial troponin was in the indeterminate range at 0.053-H&P, pg1, O Nathan OSORIO - Elevated troponin, H/O cardiomyopathy-ED record, pg4, Kev Morrison MD - PMH- Acute on chonic systolic CHF with ejection fraction 10% to 15% sec to cardiomyopathy-Consultation report, pg1, 03/10, Case. Hakeem SKELTON -End stage cardiomyopathy-DS, pg1, 03/11 RISKS: -Hx pof Acute on chronic diastolic dysfucntion-H&P, pg1, O Nathan OSORIO - Multi organ failure--DS, pg1, 03/11`, Dami garcia MD - Acute respiratory failure-DS, pg1, 03/11`, Dami garcia MD TREATMENTS: -Aspirin.IV-OCT, 03/09 (This form is maintained as a part of the permanent medical record) 2014 e27, [employer]. All Rights Reserved Nato De Oliveira [not provided] [not provided] LEANN
--- NOTE | 2019-03-18 02:46 | PQF ---
[employer] AIDA Martin MINNA JONES MD [id number] CLINICAL DOCUMENTATION CLARIFICATION FORM: POST DISCHARGE Addendum to original discharge summary date: ____ Late entry note date: __ DATE: 03/18/2019 ATTN: MINNA BOSS MD Please exercise your independent, professional judgment in responding to the clarification form. Clinical indicators are provided on the bottom of this form for your review Please check appropriate box(s): [ ] Aspiration Pneumonia [ ] Aspiration Bronchitis [ ] Empirically treating Gram Negative Pneumonia [ ] Empirically treating Anaerobic Pneumonia [ ] Pneumonia secondary to (specify organism / underlying disease) [ ] Simple Pneumonia (community acquired - nosocomial) [ ] Bronchopneumonia [ ] Pneumonia of unknown etiology [ x ] Other diagnosis __no pneumonia [ ] Unable to determine For continuity of documentation, please document condition throughout progress notes and discharge summary. Thank You. CLINICAL INDICATORS - SIGNS / SYMPTOMS / LABS -Development of a right basilar infiltrative appearing process-Chest X ray, by Anurag Gutierrez MD -worsening widespread bilateral airspace disease and left pleural effusion- Chest X ray, 03/10 by Anurag Gutierrez MD - may signify volume loss or infectious pneumonitis or aspiration-H&P, pg1, by Aziza OSORIO -Temp:97.5, RR:19, pulse: 107-H&P, pg3, 03/09 by Aziza OSORIO RISK FACTORS -End stage cardiomyopathy -DS,pg1, 03/11, MINNA BOSS MD -Hx of right basal ganglia CVA- -DS,pg1, 03/11, MINNA BOSS MD TREATMENTS: -Intubation, Ventilation-Progress note, 03/14, Jeannie humphries MD -Azithromycin.IV, Rocephin.IV-MAR, 03/10 (This form is maintained as a part of the permanent medical record) [employer] [id number] [employer]. All Rights Reserved Nato De Oliveira [not provided] [not provided] MTDD
== END 2019-03-11 08:29 | disposition expired | DRG 291 ==
LOC: ERS 18:30 → OBSVTOIN 21:53 → 2SW 21:53 → CCU 03-10 17:49
PROVIDERS: ADMIT Internal Medicine; ATTEND Internal Medicine
PROC: 0BH17EZ Insertion of Endotracheal Airway into Trachea, Via Natural or Artificial Opening (ICD-10-PCS; principal; 2019-03-10)
PROC: 5A12012 Performance of Cardiac Output, Single, Manual (ICD-10-PCS; 2019-03-10)
PROC: 02HV33Z Insertion of Infusion Device into Superior Vena Cava, Percutaneous Approach (ICD-10-PCS; 2019-03-10)
DX: I11.0 Hypertensive heart disease with heart failure (principal); J96.00 Acute respiratory failure, unspecified whether with hypoxia or hypercapnia; O99.43 Diseases of the circulatory system complicating the puerperium; I46.9 Cardiac arrest, cause unspecified; I50.23 Acute on chronic systolic (congestive) heart failure; I42.8 Other cardiomyopathies; R07.89 Other chest pain; I48.0 Paroxysmal atrial fibrillation; D64.9 Anemia, unspecified; K29.50 Unspecified chronic gastritis without bleeding; E78.5 Hyperlipidemia, unspecified; G40.409 Other generalized epilepsy and epileptic syndromes, not intractable, without status epilepticus; R11.2 Nausea with vomiting, unspecified; R00.0 Tachycardia, unspecified; Z91.14 Patient's other noncompliance with medication regimen; Z79.01 Long term (current) use of anticoagulants; Z95.810 Presence of automatic (implantable) cardiac defibrillator; Z98.51 Tubal ligation status; Z86.73 Personal history of transient ischemic attack (TIA), and cerebral infarction without residual deficits; Z87.891 Personal history of nicotine dependence
CPT/HCPCS: 36415; 36416; 71045; 71046; 80048; 80053; 82553; 82805; 83690; 83880; 84439; 84443; 84481; 84484; 84703; 85025; 93005; 94002; 94003; 96374; 96375; J0171; J0456; J0696; J2060; J2270; J2405; J2765; J3010; J3490; J7050; J7070